=== PATIENT | female | born 1970 | race Caucasian/White ===

== ENCOUNTER 2018-06-04 14:08 | Inpatient (IN) | payer OTHER ==
[2018-06-04] VITALS (23 sets, daily range): BP systolic 110–180; BP diastolic 79–114
[~2018-06-04] VITALS: Ht 162.6 cm; Wt 45.1 kg
[~2018-06-04 14:08] MED LIST: ALBU8.5H6 INH; CITA10TA4 PO; DIAZEPAM10 MG PO; DIVA500T2 PO; LISI2.5T PO; MOME13HF2 IH; TRAZ-86 PO
[2018-06-04] MEDS ORDERED: IV NORMAL SALINE 1000ML BAG 1,000 ML IV SCH (14:26)
[2018-06-04] MEDS ORDERED: HEPARIN 25,000UTS/500ML PREMIX 0 ML IV ONE (14:27)
[2018-06-04] MEDS ORDERED: HEPARIN for IV BOLUS 10,000 UNIT/10 ML VIAL. ONE (14:27)
[2018-06-04] MEDS ORDERED: HEPARIN for IV BOLUS 10,000 UNIT/10 ML VIAL. IV ONE (14:30)
[2018-06-04] MEDS ORDERED: ASPIRIN CHEWABLE 81 MG TABLET. PO ONE (14:30)
--- NOTE | 2018-06-04 14:34 | PHYS DOC ---
Past Medical History Past Medical History: COPD, Hypertension, Lung Disease Additional Past Medical Histor: celiac disease Past Surgical History: Tonsillectomy, Other Additional Past Surgical Histo: eye surgery, knee surgery, hemmorhoidectomy Alcohol Use: None Drug Use: None Adult General Chief Complaint Chief Complaint: HYPERTENSION HPI HPI Patient is a 47 year old female who presents with finished up her azithromycin last Tuesday because she had looking pneumonia. Patient states that she hasn't been feeling good all week but last night she started having chest pain around 7 or 8 PM and began vomiting and feeling achy all over. She took some NyQuil this morning at 11 AM but through back up. She also tried taking some Zantac. She did try eating last night because she felt a little bit better before the chest pain started but she vomited that up. That was [place] food around dinnertime. Patient states she's not been keeping down fluids. Vital signs are 97.6, 100% on room air, 180/111, 104 heart rate, 13 respirations. Patient states she does smoke. Patient states she has a history of COPD and hypertension. Patient states that she's been taking her breathing treatments at home, Advair of which they are not giving her any relief. Patient states she also takes lisinopril for hypertension. She has no known drug allergies. Review of Systems Review of Systems Constitutional: Denies fever or chills [] Eyes: Denies change in visual acuity, redness, or eye pain [] HENT: Denies nasal congestion or sore throat [] Respiratory: Cough or shortness of breath [] Cardiovascular:Chest pain GI: Denies abdominal pain. Nausea, Vomiting. Denies bloody stools or diarrhea [ ] : Denies dysuria or hematuria [] Musculoskeletal: Denies back pain or joint pain [] Integument: Denies rash or skin lesions [] Neurologic: Denies headache, focal weakness or sensory changes [] Endocrine: Denies polyuria or polydipsia [] All other systems were reviewed and found to be within normal limits, except as documented in this note. Current Medications Current Medications Current Medications Medications (Trade) Dose Ordered Sig/Kwesi Start Time Stop Time Status Last Admin Dose Admin Acetaminophen (Tylenol) 650 mg PRN Q4HRS PRN 06/04/18 14:45 06/05/18 14:44 Aspirin (Children'S Aspirin) 324 mg 1X ONCE 06/04/18 14:30 06/04/18 14:35 DC 06/04/18 14:38 324 MG Fentanyl Citrate (Fentanyl 2ml Vial) 50 mcg PRN Q2HR PRN 06/04/18 16:00 06/05/18 15:59 Heparin Sodium (Porcine) (Heparin Sodium) 4,000 unit 1X ONCE 06/04/18 14:30 06/04/18 14:35 DC 06/04/18 14:43 4,000 UNIT Heparin Sodium/ Dextrose 0 ml @ As Directed STK-MED ONCE 06/04/18 14:27 06/04/18 14:28 DC Nitroglycerin (Nitrostat) 0.4 mg PRN Q5MIN PRN 06/04/18 14:45 06/05/18 14:44 Ondansetron HCl (Zofran) 4 mg PRN Q8HRS PRN 06/04/18 14:45 06/05/18 14:44 06/04/18 14:49 4 MG Sodium Chloride 1,000 ml @ 75 mls/hr [id number] 06/04/18 14:41 06/05/18 14:40 06/04/18 14:41 75 MLS/HR Allergies Allergies Allergies Coded Allergies Type Severity Reaction Last Updated Verified No Known Drug Allergies 02/15/14 No Physical Exam Physical Exam Constitutional: Well developed, well nourished, no acute distress, non-toxic appearance. [] HENT: Normocephalic, atraumatic, bilateral external ears normal, oropharynx moist, no oral exudates, nose normal. [] Eyes: PERRLA, EOMI, conjunctiva normal, no discharge. [] Neck: Normal range of motion, no tenderness, supple, no stridor. [] Cardiovascular:Heart rate regular rhythm, no murmur [] Lungs & Thorax: Bilateral breath sounds clear to auscultation in upper lobes, Lower lobes diminished with LLL having expiratory wheezes. [] Abdomen: Bowel sounds normal, soft, epigastric tenderness, no masses, no pulsatile masses. [] Skin: Warm, dry, no erythema, no rash. [] Back: No tenderness, no CVA tenderness. [] Extremities: No tenderness, no cyanosis, no clubbing, ROM intact, no edema. [] Neurologic: Alert and oriented X 3, normal motor function, normal sensory function, no focal deficits noted. [] Psychologic: Affect normal, judgement normal, mood normal. [] Current Patient Data Vital Signs Vital Signs Date Time Temp Pulse Resp B/P (MAP) Pulse Ox O2 Delivery O2 Flow Rate FiO2 06/04/18 14:41 100 22 99 06/04/18 14:41 Room Air 06/04/18 14:23 97.6 180/110 (133) 97.6 Lab Values Laboratory Tests Test 06/04/18 14:28 06/04/18 14:29 White Blood Count 22.6 x10^3/uL (4.0-11.0) H Red Blood Count 5.02 x10^6/uL (3.50-5.40) Hemoglobin 13.5 g/dL (12.0-15.5) Hematocrit 40.1 % (36.0-47.0) Mean Corpuscular Volume 80 fL (79-100) Mean Corpuscular Hemoglobin 27 pg (25-35) Mean Corpuscular Hemoglobin Concent 34 g/dL (31-37) Red Cell Distribution Width 17.8 % (11.5-14.5) H Platelet Count 463 x10^3/uL (140-400) H Neutrophils (%) (Auto) 91 % (31-73) H Lymphocytes (%) (Auto) 5 % (24-48) L Monocytes (%) (Auto) 4 % (0-9) Eosinophils (%) (Auto) 0 % (0-3) Basophils (%) (Auto) 0 % (0-3) Neutrophils # (Auto) 20.6 x10^3uL (1.8-7.7) H Lymphocytes # (Auto) 1.2 x10^3/uL (1.0-4.8) Monocytes # (Auto) 0.8 x10^3/uL (0.0-1.1) Eosinophils # (Auto) 0.0 x10^3/uL (0.0-0.7) Basophils # (Auto) 0.0 x10^3/uL (0.0-0.2) Platelet Estimate Pending Prothrombin Time 13.3 SEC (11.7-14.0) Prothrombin Time INR 1.1 (0.8-1.1) Sodium Level 139 mmol/L (136-145) Potassium Level 4.5 mmol/L (3.5-5.1) Chloride Level 100 mmol/L (98-107) Carbon Dioxide Level 25 mmol/L (21-32) Anion Gap 14 (6-14) 16 mmol/L (6-14) H Blood Urea Nitrogen 12 mg/dL (7-20) Creatinine 1.0 mg/dL (0.6-1.0) Estimated GFR (Cockcroft-Gault) 58.9 BUN/Creatinine Ratio 12 (6-20) Glucose Level 168 mg/dL (70-99) H 171 mg/dL (70-99) H Calcium Level 9.5 mg/dL (8.5-10.1) Total Bilirubin 0.4 mg/dL (0.2-1.0) Aspartate Amino Transferase (AST) 277 U/L (15-37) H Alanine Aminotransferase (ALT) 54 U/L (14-59) Alkaline Phosphatase 89 U/L (46-116) Total Protein 7.3 g/dL (6.4-8.2) Albumin 3.8 g/dL (3.4-5.0) Albumin/Globulin Ratio 1.1 (1.0-1.7) POC Hemoglobin 15.0 g/dL (12-15) POC Hematocrit 44 % (36-40) H POC Sodium 137 mmol/L (135-145) POC Potassium 4.7 mmol/L (3.5-5.0) POC Chloride 101 mmol/L (98-110) POC Total CO2 26 mmol/L (23-32) POC Blood Urea Nitrogen 14 mg/dL (8-26) POC Creatinine 0.7 mg/dL (0.5-1.4) POC Ionized Calcium (Dariusz) 1.01 mmol/L (1.13-1.32) L POC Troponin I 9.73 ng/ml (<0.08) Laboratory Tests 06/04/18 14:28 Laboratory Tests 06/04/18 14:28 06/04/18 14:29 EKG EKG Inferior STEMI[] Interpretation Time: 1421 Radiology/Procedures Radiology/Procedures [] Impressions: [facility] [address] [place] [address] IMAGING REPORT Signed PATIENT: ELLIOTT BERNARD ACCOUNT: [id number] : 1970 LOCATION: ER AGE: 47 SEX: F EXAM STATUS: PRE ER ORD. PHYSICIAN: IZABELLA SNEED APRN REASON: STEMI PROCEDURE: PORTABLE CHEST 1V Examination: PORTABLE CHEST 1V History: STEMI. HX OF COPD, ASTHMA
Comparison/Correlation: 04/25/2015 two-view chest x-ray exam Findings: Portable frontal view of the chest was obtained. Heart size is normal. Subtle pulmonary interstitial thickening which may represent minimal interstitial edema noted. No pneumothorax. No infiltrate or pleural effusion. Borderline pulmonary hyperinflation is questioned. Bony structures are unremarkable. Impression: Subtle interstitial edema of the lung rainey. This finding is new in the interval. Electronically signed by: Sonido Charles MD (06/04/2018 2:43 PM) [facility] DICTATED and SIGNED BY: SONIDO CHARLES MD DATE: 06/04/18 1441 Course & Med Decision Making Course & Med Decision Making Patient is a 47 year old female who presents with finished up her azithromycin last Tuesday because she had looking pneumonia. Patient states that she hasn't been feeling good all week but last night she started having chest pain around 7 or 8 PM and began vomiting and feeling achy all over. She took some NyQuil this morning at 11 AM but through back up. She also tried taking some Zantac. She did try eating last night because she felt a little bit better before the chest pain started but she vomited that up. That was [place] food around dinnertime. Patient states she's not been keeping down fluids. Vital signs are 97.6, 100% on room air, 180/111, 104 heart rate, 13 respirations. Patient states she does smoke. Patient states she has a history of COPD and hypertension. Patient states that she's been taking her breathing treatments at home, Advair of which they are not giving her any relief. Patient states she also takes lisinopril for hypertension. She has no known drug allergies. Patient states all night she began getting hot and cold chills. Patient's EKG shows inferior STEMI. Dr. James is up to see the patient and the Cd Mixer has been notified. Lungs are clear in upper lobes but diminished in lower lobes with left lower lobe having wheezes. Abdomen is soft and tender at epigastric area. Patient denies any urinary symptoms. Patient's skin is pale but warm and dry. Patient is afebrile. Patient is alert and oriented and speaks in full sentences. Patient states that she has a heavy pressure on her mid chest she rates a 9 out of 10 and without radiation. She has no extremity swelling. Pulses are present in all extremities. Rate is tachycardia. Chest x- ray shows Subtle interstitial edema of the lung rainey. This finding is new in the interval. Patient is given 4000 units of heparin, 324 of aspirin, fentanyl 50 mcgs, and Zofran 4 mg IV. I-STAT troponin is 9.7. 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 Dragon Disclaimer Dragon Disclaimer This electronic medical record was generated, in whole or in part, using a voice recognition dictation system. Departure Departure Impression: Primary Impression: Acute myocardial infarction Disposition: ADMITTED INPATIENT Admitting Physician: Belkys Duff Condition: STABLE Referrals: SHREE VARELA MD (PCP) Problem Qualifiers Primary Impression: Acute myocardial infarction Myocardial infarction type: unspecified Involved coronary artery: unspecified coronary artery Qualified Codes: I21.9 - Acute myocardial infarction, unspecified IZABELLA SNEED [employer] Jun 04, 2018 14:33
[2018-06-04 14:36] LABS: CREATININE ISTAT 0.7 mg/dL (0.5-1.4); ION CA ISTAT 1.01 mmol/L (1.13-1.32); POTASSIUM ISTAT 4.7 mmol/L (3.5-5.0)
[2018-06-04 14:39] LABS: BASO % 0 % (0-3); EOS % 0 % (0-3); HEMATOCRIT 40.1 % (36.0-47.0); HEMOGLOBIN 13.5 g/dL (12.0-15.5); LYMPH # 1.2 x10^3/uL (1.0-4.8); LYMPH % 5 % (24-48); MEAN CORPUSCULAR HEMOGLOBIN 27 pg (25-35); MEAN CORPUSCULAR HGB CONC 34 g/dL (31-37); MEAN CORPUSCULAR VOLUME 80 fL (79-100); MONO # 0.8 x10^3/uL (0.0-1.1); MONO % 4 % (0-9); NEUT # 20.6 x10^3uL (1.8-7.7); NEUT % 91 % (31-73); PLATELET COUNT 463 x10^3/uL (140-400); RED BLOOD COUNT 5.02 x10^6/uL (3.50-5.40); RED CELL DISTRIBUTION WIDTH 17.8 % (11.5-14.5); WHITE BLOOD COUNT 22.6 x10^3/uL (4.0-11.0)
[2018-06-04] MEDS: IV NORMAL SALINE 1000ML BAG 1,000 ML IV SCH ×2 (14:41→16:05)
[2018-06-04] MEDS ORDERED: ONDANSETRON PF 4 MG/2 ML VIAL. IV PRN (14:45)
[2018-06-04] MEDS ORDERED: fentaNYL PF VIAL 100 MCG/2 ML VIAL IV ONE ×2 (14:45→15:45)
[2018-06-04] MEDS ORDERED: NITROGLYCERIN SUBLINGUAL 0.4 MG BOTTLE OF 25. SL PRN ×2 (14:45→16:15)
[2018-06-04] MEDS ORDERED: ONDANSETRON PF 4 MG/2 ML VIAL. IV ONE (14:45)
[2018-06-04] MEDS ORDERED: ACETAMINOPHEN 325 MG TABLET. PO PRN ×2 (14:45→16:15)
[2018-06-04 14:46] LABS: CALCIUM 9.5 mg/dL (8.5-10.1); GFR 58.9; POTASSIUM 4.5 mmol/L (3.5-5.1)
--- NOTE | 2018-06-04 14:46 | RAD ---
Examination: PORTABLE CHEST 1V History: STEMI. HX OF COPD, ASTHMA
Comparison/Correlation: 04/25/2015 two-view chest x-ray exam Findings: Portable frontal view of the chest was obtained. Heart size is normal. Subtle pulmonary interstitial thickening which may represent minimal interstitial edema noted. No pneumothorax. No infiltrate or pleural effusion. Borderline pulmonary hyperinflation is questioned. Bony structures are unremarkable. Impression: Subtle interstitial edema of the lung rainey. This finding is new in the interval. Electronically signed by: Sonido Galan MD (06/04/2018 2:43 PM) [facility]
[2018-06-04 14:49] LABS: PROTHROMBIN TIME PATIENT 13.3 SEC (11.7-14.0)
[2018-06-04 14:52] LABS: ALBUMIN 3.8 g/dL (3.4-5.0); ALBUMIN/GLOBULIN RATIO 1.1 (1.0-1.7); TOTAL BILIRUBIN 0.4 mg/dL (0.2-1.0); TOTAL PROTEIN 7.3 g/dL (6.4-8.2)
[2018-06-04] MEDS ORDERED: IODIXANOL 320 MG/ML 100 ML VIAL. ONE ×2 (14:58→15:21)
[2018-06-04] MEDS ORDERED: LIDOCAINE 1% PF 30 ML VIAL. ONE (14:58)
[2018-06-04] MEDS ORDERED: MIDAZOLAM HCL/PF 2 MG/2 ML VIAL. ONE ×2 (15:02→15:15)
[2018-06-04] MEDS ORDERED: fentaNYL PF VIAL 100 MCG/2 ML VIAL ONE ×2 (15:02→15:31)
--- NOTE | 2018-06-04 15:05 | EKG ---
[facility] [address] [place] [address] Test Date: 2018-06-04 Test Time: 14:21:39 Pat Name: ELLIOTT BERNARD Department: Room: Gender: F Material Specialist: : 1970 Requested By: IZABELLA SNEED Order Number: [id number] Reading MD: Kaushal Solis MD Measurements Intervals [place] Rate: 98 P: 86 AK: 146 QRS: 1 QRSD: 72 T: 89 QT: 366 QTc: 469 Interpretive Statements SINUS RHYTHM INFEROLATERAL STEMI Electronically Signed On 06-05-2018 11:46:19 CDT by Kaushal Solis MD
[2018-06-04 15:09] LABS: CHOLESTEROL/HDL RATIO 3.1
--- NOTE | 2018-06-04 15:10 | PDOC1 ---
History and Physical Date of Admission Date of Admission DATE: 06/04/18 TIME: 15:05 Identification/Chief Complaint Chief Complaint Chest pain, SOA, sweaty Source Source: Caregiver, Chart review, Patient History of Present Illness History of Present Illness 47-year-old female who continues to smoke, BMI 18, started to have left-sided chest pain, diaphoresis, SOA last night. She thought it was just her walking pneumonia from which she is recently recovering. But chest pain persisted upon waking up this morning. SHe describes it as tight squeezing, left sided associated with diaphoresis. Hence went to the emergency room and found to have a STEMI inferior wall hence now being planned for cardiac catheterization. She is vomiting, vital signs, blood pressure on the high side, WBC elevated at 22 but then again recently on prednisone for walking pneumonia. Platelets also mildly elevated 463. She has a bucket at bedside, emesis. She swears she will not smoke again. Troponin peaks at 9. Now has been nothing by mouth for urgent LHC, She takes inhalers, lisinopril, and other meds-which I have reconciled Smoking cessation 1 and 1 done today and she is very interested about it Past Medical History Cardiovascular: HTN Pulmonary: Asthma, Bronchitis, COPD Past Surgical History Past Surgical History: No pertinent history Family History Family History: Heart Disease, High Cholestrol, Hypertension Social History Smoke: 1 pack per day ALCOHOL: occassional Drugs: None Current Problem List Problem List Problems Medical Problems: (1) Acute myocardial infarction Status: Acute Current Medications Current Medications Current Medications Heparin Sodium (Porcine) (Heparin Sodium) 10,000 unit STK-MED ONCE .ROUTE ; Start 06/04/18 at 14:27; Stop 06/04/18 at 14:28; Status DC Heparin Sodium/ Dextrose 0 ml @ As Directed STK-MED ONCE IV ; Start 06/04/18 at 14:27; Stop 06/04/18 at 14:28; Status DC Sodium Chloride 1,000 ml @ 1,000 mls/hr Q1H IV Last administered on at 14:34; Start 06/04/18 at 14:26; Stop 06/04/18 at 15:25 Aspirin (Children'S Aspirin) 324 mg 1X ONCE PO Last administered on at 14:38; Start 06/04/18 at 14:30; Stop 06/04/18 at 14:35; Status DC Heparin Sodium (Porcine) (Heparin Sodium) 4,000 unit 1X ONCE IV Last administered on 06/04/18at 14:43; Start 06/04/18 at 14:30; Stop 06/04/18 at 14 :35; Status DC Fentanyl Citrate (Fentanyl 2ml Vial) 50 mcg 1X ONCE IV Last administered on at 14:41; Start 06/04/18 at 14:45; Stop 06/04/18 at 14:46; Status DC Ondansetron HCl (Zofran) 4 mg 1X ONCE IV Last administered on 06/04/18at 14:45 ; Start 06/04/18 at 14:45; Stop 06/04/18 at 14:46; Status DC Ondansetron HCl (Zofran) 4 mg PRN Q8HRS PRN IV NAUSEA/VOMITING Last administered on 06/04/18at 14:49; Start 06/04/18 at 14:45; Stop 06/05/18 at 14 :44 Fentanyl Citrate (Fentanyl 2ml Vial) 50 mcg PRN Q2HR PRN IV PAIN; Start at 16:00; Stop 06/05/18 at 15:59 Sodium Chloride 1,000 ml @ 75 mls/hr [id number] IV Last administered on at 14:41; Start 06/04/18 at 14:41; Stop 06/05/18 at 14:40 Acetaminophen (Tylenol) 650 mg PRN Q4HRS PRN PO FEVER; Start 06/04/18 at 14:45 ; Stop 06/05/18 at 14:44 Nitroglycerin (Nitrostat) 0.4 mg PRN Q5MIN PRN SL CHEST PAIN; Start 06/04/18 at 14:45; Stop 06/05/18 at 14:44 Iodixanol (Visipaque 320) 100 ml STK-MED ONCE .ROUTE ; Start 06/04/18 at 14:58 ; Stop 06/04/18 at 14:59; Status DC Lidocaine HCl (Xylocaine 1% Pf 30ml Vial) 30 ml STK-MED ONCE .ROUTE ; Start at 14:58; Stop 06/04/18 at 14:59; Status DC Heparin Sodium/ Sodium Chloride 1,000 ml @ As Directed STK-MED ONCE .ROUTE ; Start 06/04/18 at 14:58; Stop 06/04/18 at 14:59; Status DC Fentanyl Citrate (Fentanyl 2ml Vial) 100 mcg STK-MED ONCE .ROUTE ; Start at 15:02; Stop 06/04/18 at 15:03; Status DC Midazolam HCl (Versed) 2 mg STK-MED ONCE .ROUTE ; Start 06/04/18 at 15:02; Stop 06/04/18 at 15:03; Status DC Active Scripts Active Reported Albuterol Sulfate Hfa Inhaler (Albuterol Sulfate) 8.5 Gm Hfa.aer.ad 2 Puff INH Q4HRS PRN Trazodone Hcl 100 Mg Tablet 100 Mg PO HS PRN Dulera 100 Mcg/5 Mcg Inhaler (Mometasone/Formoterol) 13 Gm Hfa.aer.ad 2 Puff IH Lisinopril 2.5 Mg Tablet 2.5 Mg PO DAILY Depakote (Divalproex Sodium) 500 Mg Tablet.dr 750 Mg PO DAILY Diazepam 10 Mg Tablet 10 Mg PO DAILY PRN Citalopram Hbr (Citalopram Hydrobromide) 10 Mg Tablet 10 Mg PO DAILY Allergies Allergies: Coded Allergies: No Known Drug Allergies (Unverified , 02/15/14) ROS Review of System Limited, very sick, bucket at bedside, but is nauseated, pos for chest pain - mostly per hPI Physical Exam General: No acute distress, Other (bucket at bedside, warm and perspiring to touch) HEENT: Atraumatic, PERRLA, EOMI Lungs: Clear to auscultation, Normal air movement Heart: S1S2, RRR, no thrills, no rubs, no gallops, no murmurs Cardiovascular: S1, S2 Breasts: Normal, Rt breast nml w/o mass, Lt breast nml w/o mass, Nipples normal Abdomen: Normal bowel sounds, Soft, No tenderness, No hepatosplenomegaly, No masses Rectal Exam: not examined PELVIC: Nml ext genitalia Extremities: No clubbing, No cyanosis, No edema, Normal pulses, No tenderness/ swelling Skin: No rashes, No breakdown, No significant lesion Neuro: Normal gait, Normal speech, Strength at 5/5 X4 ext, Normal tone, Sensation intact, Cranial nerves 3-12 NL, Reflexes 2+ Psych/Mental Status: Mental status NL, Mood NL Vitals Vitals Vital Signs Date Time Temp Pulse Resp B/P (MAP) Pulse Ox O2 Delivery O2 Flow Rate FiO2 06/04/18 14:41 100 22 99 06/04/18 14:41 Room Air 06/04/18 14:23 97.6 180/110 (133) 97.6 Labs Labs Laboratory Tests Test 06/04/18 14:28 06/04/18 14:29 White Blood Count 22.6 x10^3/uL (4.0-11.0) Red Blood Count 5.02 x10^6/uL (3.50-5.40) Hemoglobin 13.5 g/dL (12.0-15.5) Hematocrit 40.1 % (36.0-47.0) Mean Corpuscular Volume 80 fL (79-100) Mean Corpuscular Hemoglobin 27 pg (25-35) Mean Corpuscular Hemoglobin Concent 34 g/dL (31-37) Red Cell Distribution Width 17.8 % (11.5-14.5) Platelet Count 463 x10^3/uL (140-400) Neutrophils (%) (Auto) 91 % (31-73) Lymphocytes (%) (Auto) 5 % (24-48) Monocytes (%) (Auto) 4 % (0-9) Eosinophils (%) (Auto) 0 % (0-3) Basophils (%) (Auto) 0 % (0-3) Neutrophils # (Auto) 20.6 x10^3uL (1.8-7.7) Lymphocytes # (Auto) 1.2 x10^3/uL (1.0-4.8) Monocytes # (Auto) 0.8 x10^3/uL (0.0-1.1) Eosinophils # (Auto) 0.0 x10^3/uL (0.0-0.7) Basophils # (Auto) 0.0 x10^3/uL (0.0-0.2) Prothrombin Time 13.3 SEC (11.7-14.0) Prothromb Time International Ratio 1.1 (0.8-1.1) Sodium Level 139 mmol/L (136-145) Potassium Level 4.5 mmol/L (3.5-5.1) Chloride Level 100 mmol/L (98-107) Carbon Dioxide Level 25 mmol/L (21-32) Anion Gap 14 (6-14) 16 mmol/L (6-14) Blood Urea Nitrogen 12 mg/dL (7-20) Creatinine 1.0 mg/dL (0.6-1.0) Estimated GFR (Cockcroft-Gault) 58.9 BUN/Creatinine Ratio 12 (6-20) Glucose Level 168 mg/dL (70-99) 171 mg/dL (70-99) Calcium Level 9.5 mg/dL (8.5-10.1) Total Bilirubin 0.4 mg/dL (0.2-1.0) Aspartate Amino Transf (AST/SGOT) 277 U/L (15-37) Alanine Aminotransferase (ALT/SGPT) 54 U/L (14-59) Alkaline Phosphatase 89 U/L (46-116) Total Protein 7.3 g/dL (6.4-8.2) Albumin 3.8 g/dL (3.4-5.0) Albumin/Globulin Ratio 1.1 (1.0-1.7) Bedside Hemoglobin 15.0 g/dL (12-15) Bedside Hematocrit 44 % (36-40) Bedside Sodium 137 mmol/L (135-145) Bedside Potassium 4.7 mmol/L (3.5-5.0) Bedside Chloride 101 mmol/L (98-110) Bedside Total CO2 26 mmol/L (23-32) Bedside Blood Urea Nitrogen 14 mg/dL (8-26) Bedside Creatinine 0.7 mg/dL (0.5-1.4) Bedside Ionized Calcium (Dariusz) 1.01 mmol/L (1.13-1.32) Bedside Troponin I 9.73 ng/ml (<0.08) Laboratory Tests Test 06/04/18 14:28 06/04/18 14:29 White Blood Count 22.6 x10^3/uL (4.0-11.0) Red Blood Count 5.02 x10^6/uL (3.50-5.40) Hemoglobin 13.5 g/dL (12.0-15.5) Hematocrit 40.1 % (36.0-47.0) Mean Corpuscular Volume 80 fL (79-100) Mean Corpuscular Hemoglobin 27 pg (25-35) Mean Corpuscular Hemoglobin Concent 34 g/dL (31-37) Red Cell Distribution Width 17.8 % (11.5-14.5) Platelet Count 463 x10^3/uL (140-400) Neutrophils (%) (Auto) 91 % (31-73) Lymphocytes (%) (Auto) 5 % (24-48) Monocytes (%) (Auto) 4 % (0-9) Eosinophils (%) (Auto) 0 % (0-3) Basophils (%) (Auto) 0 % (0-3) Neutrophils # (Auto) 20.6 x10^3uL (1.8-7.7) Lymphocytes # (Auto) 1.2 x10^3/uL (1.0-4.8) Monocytes # (Auto) 0.8 x10^3/uL (0.0-1.1) Eosinophils # (Auto) 0.0 x10^3/uL (0.0-0.7) Basophils # (Auto) 0.0 x10^3/uL (0.0-0.2) Prothrombin Time 13.3 SEC (11.7-14.0) Prothromb Time International Ratio 1.1 (0.8-1.1) Sodium Level 139 mmol/L (136-145) Potassium Level 4.5 mmol/L (3.5-5.1) Chloride Level 100 mmol/L (98-107) Carbon Dioxide Level 25 mmol/L (21-32) Anion Gap 14 (6-14) 16 mmol/L (6-14) Blood Urea Nitrogen 12 mg/dL (7-20) Creatinine 1.0 mg/dL (0.6-1.0) Estimated GFR (Cockcroft-Gault) 58.9 BUN/Creatinine Ratio 12 (6-20) Glucose Level 168 mg/dL (70-99) 171 mg/dL (70-99) Calcium Level 9.5 mg/dL (8.5-10.1) Total Bilirubin 0.4 mg/dL (0.2-1.0) Aspartate Amino Transf (AST/SGOT) 277 U/L (15-37) Alanine Aminotransferase (ALT/SGPT) 54 U/L (14-59) Alkaline Phosphatase 89 U/L (46-116) Total Protein 7.3 g/dL (6.4-8.2) Albumin 3.8 g/dL (3.4-5.0) Albumin/Globulin Ratio 1.1 (1.0-1.7) Bedside Hemoglobin 15.0 g/dL (12-15) Bedside Hematocrit 44 % (36-40) Bedside Sodium 137 mmol/L (135-145) Bedside Potassium 4.7 mmol/L (3.5-5.0) Bedside Chloride 101 mmol/L (98-110) Bedside Total CO2 26 mmol/L (23-32) Bedside Blood Urea Nitrogen 14 mg/dL (8-26) Bedside Creatinine 0.7 mg/dL (0.5-1.4) Bedside Ionized Calcium (Dariusz) 1.01 mmol/L (1.13-1.32) Bedside Troponin I 9.73 ng/ml (<0.08) VTE Prophylaxis Ordered VTE Prophylaxis Devices: Yes VTE Pharmacological Prophylaxi: Yes Assessment/Plan Assessment/Plan STEMI inferior wall Leukocytosis in the background of recent prednisone for URI sxs/walking PNA Recent acute bronchitis/walking PNA Reactive thrombocytosis Smoker of pack a day Hypertension accelerated POA secondary to STEMI PLAN: Urgent [facility] Heparin drip Nicotine patch and gum Control BP Home meds I have reconciled Further recommendations/antiplatelets care of cardiology Seen at JUSTINE SANCHES MD Jun 04, 2018 15:10
[2018-06-04 15:15] LABS: PREG TEST PT QUAL NEGATIVE (NEG)
[2018-06-04] MEDS ORDERED: diphenhydrAMINE HCL 25 MG CAPSULE PO PRN (15:15)
[2018-06-04] MEDS ORDERED: ALBUTEROL SULFATE 8GM INHALER. INH PRN (15:15)
[2018-06-04] MEDS ORDERED: NICOTINE 21MG PATCH. TD PRN (15:15)
[2018-06-04] MEDS ORDERED: NICOTINE POLACRILEX 2MG GUM PACKAGE of 12. BC PRN (15:15)
[2018-06-04] MEDS ORDERED: traZODone 100 MG TABLET. PO PRN (15:15)
[2018-06-04] MEDS ORDERED: BIVALIRUDIN 250 MG VIAL. IV ONE ×2 (15:18→15:45)
[2018-06-04] MEDS ORDERED: LIDOCAINE 1% PF 30 ML VIAL. INJ ONE (15:45)
[2018-06-04] MEDS ORDERED: MIDAZOLAM HCL/PF 2 MG/2 ML VIAL. IV ONE (15:45)
[2018-06-04] MEDS ORDERED: NITROGLYCERIN 200 MCG/2 ML SYRINGE FOR CATH/VASC LAB. IART ONE (15:45)
[2018-06-04] MEDS ORDERED: ALBUTEROL SULFATE 2.5 MG/3 ML NEBU. NEB PRN (15:45)
[2018-06-04] MEDS ORDERED: CONTRAST GIVEN. MC PRN (15:45)
[2018-06-04] MEDS ORDERED: IODIXANOL 320 MG/ML 100 ML VIAL. IART ONE (15:45)
[2018-06-04 16:00] LABS: % ATYL 1 % (0-0); % BANDS 9 % (0-9); % LYMPHS 3 % (24-48); % MONOS 3 % (0-10); % SEGS 84 % (35-66); ANISOCYTOSIS SLIGHT; PLT ESTIMATE INCREASED (ADEQUATE)
[2018-06-04] MEDS ORDERED: CLOPIDOGREL BISULFATE 75 MG TABLET PO ONE (16:00)
[2018-06-04] MEDS ORDERED: fentaNYL PF VIAL 100 MCG/2 ML VIAL IV PRN (16:00)
[2018-06-04] MEDS ORDERED: LISINOPRIL 5 MG TABLET. PO SCH (16:00)
--- NOTE | 2018-06-04 16:14 | PDOC2 ---
CONSULT Date of Consult Date of Consult DATE: 06/04/18 TIME: 16:13 Reason for Consult Reason for Consult: Acute myocardial infarction Referring Physician Referring Physician: Dr. Knapp Identification/Chief Complaint Chief Complaint Nausea, vomiting, chest pain Source Source: Chart review, Patient History of Present Illness Reason for Visit: 47-year-old female without any previous cardiac history apparently started having nausea, vomiting, retrosternal chest pressure associated with mild shortness of breath last night. Since her symptoms were not getting better, she presented to the ED where an EKG showed inferolateral ST elevations consistent with acute myocardial infarction. She apparently was recently treated for pneumonia. She denied any orthopnea/PND, palpitations or syncope. She stated that she is under tremendous amount of stress due to the prospect of losing her house. She also has history of anxiety/panic attack. Past Medical History Cardiovascular: HTN Pulmonary: Asthma, Bronchitis, COPD Past Surgical History Past Surgical History: No pertinent history Family History Family History: Heart Disease, High Cholestrol, Hypertension Social History 1 pack per day ALCOHOL: occassional Drugs: None Current Problem List Problem List Problems Medical Problems: (1) Acute myocardial infarction Status: Acute Current Medications Current Medications Current Medications Heparin Sodium (Porcine) (Heparin Sodium) 10,000 unit STK-MED ONCE .ROUTE ; Start 06/04/18 at 14:27; Stop 06/04/18 at 14:28; Status DC Heparin Sodium/ Dextrose 0 ml @ As Directed STK-MED ONCE IV ; Start 06/04/18 at 14:27; Stop 06/04/18 at 14:28; Status DC Sodium Chloride 1,000 ml @ 1,000 mls/hr Q1H IV Last administered on at 14:34; Start 06/04/18 at 14:26; Stop 06/04/18 at 15:25; Status DC Aspirin (Children'S Aspirin) 324 mg 1X ONCE PO Last administered on at 14:38; Start 06/04/18 at 14:30; Stop 06/04/18 at 14:35; Status DC Heparin Sodium (Porcine) (Heparin Sodium) 4,000 unit 1X ONCE IV Last administered on 06/04/18at 14:43; Start 06/04/18 at 14:30; Stop 06/04/18 at 14 :35; Status DC Fentanyl Citrate (Fentanyl 2ml Vial) 50 mcg 1X ONCE IV Last administered on at 14:41; Start 06/04/18 at 14:45; Stop 06/04/18 at 14:46; Status DC Ondansetron HCl (Zofran) 4 mg 1X ONCE IV Last administered on 06/04/18at 14:45 ; Start 06/04/18 at 14:45; Stop 06/04/18 at 14:46; Status DC Ondansetron HCl (Zofran) 4 mg PRN Q8HRS PRN IV NAUSEA/VOMITING Last administered on 06/04/18at 14:49; Start 06/04/18 at 14:45; Stop 06/04/18 at 15 :05; Status DC Fentanyl Citrate (Fentanyl 2ml Vial) 50 mcg PRN Q2HR PRN IV PAIN; Start at 16:00; Stop 06/05/18 at 15:59 Sodium Chloride 1,000 ml @ 75 mls/hr [id number] IV Last administered on at 16:05; Start 06/04/18 at 14:41; Stop 06/05/18 at 14:40 Acetaminophen (Tylenol) 650 mg PRN Q4HRS PRN PO FEVER; Start 06/04/18 at 14:45 ; Stop 06/05/18 at 14:44 Nitroglycerin (Nitrostat) 0.4 mg PRN Q5MIN PRN SL CHEST PAIN; Start 06/04/18 at 14:45; Stop 06/05/18 at 14:44 Iodixanol (Visipaque 320) 100 ml STK-MED ONCE .ROUTE ; Start 06/04/18 at 14:58 ; Stop 06/04/18 at 14:59; Status DC Lidocaine HCl (Xylocaine 1% Pf 30ml Vial) 30 ml STK-MED ONCE .ROUTE ; Start at 14:58; Stop 06/04/18 at 14:59; Status DC Heparin Sodium/ Sodium Chloride 1,000 ml @ As Directed STK-MED ONCE .ROUTE ; Start 06/04/18 at 14:58; Stop 06/04/18 at 14:59; Status DC Fentanyl Citrate (Fentanyl 2ml Vial) 100 mcg STK-MED ONCE .ROUTE ; Start at 15:02; Stop 06/04/18 at 15:03; Status DC Midazolam HCl (Versed) 2 mg STK-MED ONCE .ROUTE ; Start 06/04/18 at 15:02; Stop 06/04/18 at 15:03; Status DC Ondansetron HCl (Zofran) 4 mg PRN Q6HRS PRN IV NAUSEA/VOMITING; Start at 15:15 Nicotine (Nicoderm Cq 21mg) 1 patch PRN DAILY PRN TD SMOKING CESSATION; Start 06/04/18 at 15:15 Nicotine Polacrilex (Nicorette Gum) 1 each PRN Q1HR PRN BC SMOKING CESSATION; Start 06/04/18 at 15:15 Oxycodone/ Acetaminophen (Percocet 5/325) 1 tab PRN Q4HRS PRN PO PAIN; Start 06/04/18 at 15:15 Diphenhydramine HCl (Benadryl) 25 mg PRN QHS PRN PO INSOMNIA; Start 06/04/18 at 15:15 Albuterol Sulfate (Ventolin Hfa) 2 puff Q4HRS PRN INH SHORTNESS OF BREATH; Start 06/04/18 at 15:15; Stop 06/04/18 at 15:36; Status DC Citalopram Hydrobromide (CeleXA) 10 mg DAILY PO ; Start 06/05/18 at 09:00 Trazodone HCl (Desyrel) 100 mg PRN QHS PRN PO INSOMNIA; Start 06/04/18 at 15: 15 Non-Formulary Medication (Diazepam ) 10 mg DAILY PRN PO ANXIETY / AGITATION; Start 06/04/18 at 15:15; Status UNV Non-Formulary Medication (Divalproex Sodium (Depakote)) 750 mg DAILY PO ; Start 06/05/18 at 09:00; Status UNV Lisinopril (Prinivil) 2.5 mg DAILY PO ; Start 06/04/18 at 16:00 Midazolam HCl (Versed) 2 mg STK-MED ONCE .ROUTE ; Start 06/04/18 at 15:15; Stop 06/04/18 at 15:16; Status DC Bivalirudin (Angiomax) 250 mg STK-MED ONCE IV ; Start 06/04/18 at 15:18; Stop 06/04/18 at 15:19; Status DC Iodixanol (Visipaque 320) 100 ml STK-MED ONCE .ROUTE ; Start 06/04/18 at 15:21 ; Stop 06/04/18 at 15:22; Status DC Fentanyl Citrate (Fentanyl 2ml Vial) 100 mcg STK-MED ONCE .ROUTE ; Start at 15:31; Stop 06/04/18 at 15:32; Status DC Albuterol Sulfate (Ventolin Neb Soln) 2.5 mg PRN Q4HRS PRN NEB SHORTNESS OF BREATH; Start 06/04/18 at 15:45 Nitroglycerin (Nitroglycerin) 200 mcg 1X ONCE IART Last administered on at 15:45; Start 06/04/18 at 15:45; Stop 06/04/18 at 15:46; Status DC Heparin Sodium/ Sodium Chloride (HEPARIN for ARTERIAL LINE FLUSH) 1,000 unit 1X ONCE IART Last administered on 06/04/18at 15:41; Start 06/04/18 at 15:45; Stop 06/04/18 at 15:46; Status DC Heparin Sodium/ Sodium Chloride (HEPARIN for ARTERIAL LINE FLUSH) 1,000 unit 1X ONCE IART Last administered on 06/04/18at 15:41; Start 06/04/18 at 15:45; Stop 06/04/18 at 15:46; Status DC Midazolam HCl (Versed) 2 mg 1X ONCE IV Last administered on 06/04/18at 15:45; Start 06/04/18 at 15:45; Stop 06/04/18 at 15:46; Status DC Fentanyl Citrate (Fentanyl 2ml Vial) 100 mcg 1X ONCE IV Last administered on 06/04/18at 15:45; Start 06/04/18 at 15:45; Stop 06/04/18 at 15:46; Status DC Iodixanol (Visipaque 320) 100 ml 1X ONCE IART Last administered on 06/04/18at 15:45; Start 06/04/18 at 15:45; Stop 06/04/18 at 15:46; Status DC Bivalirudin (Angiomax) 250 mg 1X ONCE IV Last administered on 06/04/18at 15:41 ; Start 06/04/18 at 15:45; Stop 06/04/18 at 15:46; Status DC Lidocaine HCl (Xylocaine 1% Pf 30ml Vial) 30 ml 1X ONCE INJ Last administered on 06/04/18at 15:45; Start 06/04/18 at 15:45; Stop 06/04/18 at 15:46; Status DC Info (CONTRAST GIVEN -- Rx MONITORING) 1 each PRN DAILY PRN MC SEE COMMENTS; Start 06/04/18 at 15:45; Stop 06/06/18 at 15:44 Clopidogrel Bisulfate (Plavix) 600 mg 1X ONCE PO Last administered on at 16:00; Start 06/04/18 at 16:00; Stop 06/04/18 at 16:01; Status DC Active Scripts Active Reported Albuterol Sulfate Hfa Inhaler (Albuterol Sulfate) 8.5 Gm Hfa.aer.ad 2 Puff INH Q4HRS PRN Trazodone Hcl 100 Mg Tablet 100 Mg PO HS PRN Dulera 100 Mcg/5 Mcg Inhaler (Mometasone/Formoterol) 13 Gm Hfa.aer.ad 2 Puff IH Lisinopril 2.5 Mg Tablet 2.5 Mg PO DAILY Depakote (Divalproex Sodium) 500 Mg Tablet.dr 750 Mg PO DAILY Diazepam 10 Mg Tablet 10 Mg PO DAILY PRN Citalopram Hbr (Citalopram Hydrobromide) 10 Mg Tablet 10 Mg PO DAILY Allergies Allergies: Coded Allergies: No Known Drug Allergies (Unverified , 02/15/14) ROS PSYCHOLOGICAL ROS: No: Hallucinations Eyes: No Loss of vision Respiratory: YES: Shortness of breath; No: Hemoptysis Cardiovascular: yes Chest Pain Gastrointestinal: Yes Nausea, Yes Vomiting Neurological: Yes Seizures Skin: Yes Rash Physical Exam General: Alert, mild distress HEENT: Atraumatic, PERRLA Lungs: Clear to auscultation Heart: Regular rate Abdomen: Soft, No tenderness Extremities: No edema Psych/Mental Status: Mood NL Vitals VITALS Vital Signs Date Time Temp Pulse Resp B/P (MAP) Pulse Ox O2 Delivery O2 Flow Rate FiO2 06/04/18 15:45 18 06/04/18 14:41 100 99 06/04/18 14:41 Room Air 06/04/18 14:23 97.6 180/110 (133) 97.6 Labs Labs Laboratory Tests Test 06/04/18 14:28 06/04/18 14:29 White Blood Count 22.6 x10^3/uL (4.0-11.0) Red Blood Count 5.02 x10^6/uL (3.50-5.40) Hemoglobin 13.5 g/dL (12.0-15.5) Hematocrit 40.1 % (36.0-47.0) Mean Corpuscular Volume 80 fL (79-100) Mean Corpuscular Hemoglobin 27 pg (25-35) Mean Corpuscular Hemoglobin Concent 34 g/dL (31-37) Red Cell Distribution Width 17.8 % (11.5-14.5) Platelet Count 463 x10^3/uL (140-400) Neutrophils (%) (Auto) 91 % (31-73) Lymphocytes (%) (Auto) 5 % (24-48) Monocytes (%) (Auto) 4 % (0-9) Eosinophils (%) (Auto) 0 % (0-3) Basophils (%) (Auto) 0 % (0-3) Neutrophils # (Auto) 20.6 x10^3uL (1.8-7.7) Lymphocytes # (Auto) 1.2 x10^3/uL (1.0-4.8) Monocytes # (Auto) 0.8 x10^3/uL (0.0-1.1) Eosinophils # (Auto) 0.0 x10^3/uL (0.0-0.7) Basophils # (Auto) 0.0 x10^3/uL (0.0-0.2) Segmented Neutrophils % 84 % (35-66) Band Neutrophils % 9 % (0-9) Lymphocytes % 3 % (24-48) Atypical Lymphocytes % (Manual) 1 % (0-0) Monocytes % 3 % (0-10) Platelet Estimate Increased (ADEQUATE) Large Platelets Few Anisocytosis Slight Prothrombin Time 13.3 SEC (11.7-14.0) Prothromb Time International Ratio 1.1 (0.8-1.1) Sodium Level 139 mmol/L (136-145) Potassium Level 4.5 mmol/L (3.5-5.1) Chloride Level 100 mmol/L (98-107) Carbon Dioxide Level 25 mmol/L (21-32) Anion Gap 14 (6-14) 16 mmol/L (6-14) Blood Urea Nitrogen 12 mg/dL (7-20) Creatinine 1.0 mg/dL (0.6-1.0) Estimated GFR (Cockcroft-Gault) 58.9 BUN/Creatinine Ratio 12 (6-20) Glucose Level 168 mg/dL (70-99) 171 mg/dL (70-99) Calcium Level 9.5 mg/dL (8.5-10.1) Total Bilirubin 0.4 mg/dL (0.2-1.0) Aspartate Amino Transf (AST/SGOT) 277 U/L (15-37) Alanine Aminotransferase (ALT/SGPT) 54 U/L (14-59) Alkaline Phosphatase 89 U/L (46-116) Troponin I Quantitative 14.405 ng/mL (0.000-0.055) Total Protein 7.3 g/dL (6.4-8.2) Albumin 3.8 g/dL (3.4-5.0) Albumin/Globulin Ratio 1.1 (1.0-1.7) Triglycerides Level 88 mg/dL (0-150) Cholesterol Level 180 mg/dL (0-200) LDL Cholesterol, Calculated 104 mg/dL (0-100) VLDL Cholesterol, Calculated 18 mg/dL (0-40) Non-HDL Cholesterol Calculated 122 mg/dL (0-129) HDL Cholesterol 58 mg/dL (40-60) Cholesterol/HDL Ratio 3.1 Serum Test, Qualitative Negative (NEG) Bedside Hemoglobin 15.0 g/dL (12-15) Bedside Hematocrit 44 % (36-40) Bedside Sodium 137 mmol/L (135-145) Bedside Potassium 4.7 mmol/L (3.5-5.0) Bedside Chloride 101 mmol/L (98-110) Bedside Total CO2 26 mmol/L (23-32) Bedside Blood Urea Nitrogen 14 mg/dL (8-26) Bedside Creatinine 0.7 mg/dL (0.5-1.4) Bedside Ionized Calcium (Dariusz) 1.01 mmol/L (1.13-1.32) Bedside Troponin I 9.73 ng/ml (<0.08) Laboratory Tests Test 06/04/18 14:28 06/04/18 14:29 White Blood Count 22.6 x10^3/uL (4.0-11.0) Red Blood Count 5.02 x10^6/uL (3.50-5.40) Hemoglobin 13.5 g/dL (12.0-15.5) Hematocrit 40.1 % (36.0-47.0) Mean Corpuscular Volume 80 fL (79-100) Mean Corpuscular Hemoglobin 27 pg (25-35) Mean Corpuscular Hemoglobin Concent 34 g/dL (31-37) Red Cell Distribution Width 17.8 % (11.5-14.5) Platelet Count 463 x10^3/uL (140-400) Neutrophils (%) (Auto) 91 % (31-73) Lymphocytes (%) (Auto) 5 % (24-48) Monocytes (%) (Auto) 4 % (0-9) Eosinophils (%) (Auto) 0 % (0-3) Basophils (%) (Auto) 0 % (0-3) Neutrophils # (Auto) 20.6 x10^3uL (1.8-7.7) Lymphocytes # (Auto) 1.2 x10^3/uL (1.0-4.8) Monocytes # (Auto) 0.8 x10^3/uL (0.0-1.1) Eosinophils # (Auto) 0.0 x10^3/uL (0.0-0.7) Basophils # (Auto) 0.0 x10^3/uL (0.0-0.2) Segmented Neutrophils % 84 % (35-66) Band Neutrophils % 9 % (0-9) Lymphocytes % 3 % (24-48) Atypical Lymphocytes % (Manual) 1 % (0-0) Monocytes % 3 % (0-10) Platelet Estimate Increased (ADEQUATE) Large Platelets Few Anisocytosis Slight Prothrombin Time 13.3 SEC (11.7-14.0) Prothromb Time International Ratio 1.1 (0.8-1.1) Sodium Level 139 mmol/L (136-145) Potassium Level 4.5 mmol/L (3.5-5.1) Chloride Level 100 mmol/L (98-107) Carbon Dioxide Level 25 mmol/L (21-32) Anion Gap 14 (6-14) 16 mmol/L (6-14) Blood Urea Nitrogen 12 mg/dL (7-20) Creatinine 1.0 mg/dL (0.6-1.0) Estimated GFR (Cockcroft-Gault) 58.9 BUN/Creatinine Ratio 12 (6-20) Glucose Level 168 mg/dL (70-99) 171 mg/dL (70-99) Calcium Level 9.5 mg/dL (8.5-10.1) Total Bilirubin 0.4 mg/dL (0.2-1.0) Aspartate Amino Transf (AST/SGOT) 277 U/L (15-37) Alanine Aminotransferase (ALT/SGPT) 54 U/L (14-59) Alkaline Phosphatase 89 U/L (46-116) Troponin I Quantitative 14.405 ng/mL (0.000-0.055) Total Protein 7.3 g/dL (6.4-8.2) Albumin 3.8 g/dL (3.4-5.0) Albumin/Globulin Ratio 1.1 (1.0-1.7) Triglycerides Level 88 mg/dL (0-150) Cholesterol Level 180 mg/dL (0-200) LDL Cholesterol, Calculated 104 mg/dL (0-100) VLDL Cholesterol, Calculated 18 mg/dL (0-40) Non-HDL Cholesterol Calculated 122 mg/dL (0-129) HDL Cholesterol 58 mg/dL (40-60) Cholesterol/HDL Ratio 3.1 Serum Test, Qualitative Negative (NEG) Bedside Hemoglobin 15.0 g/dL (12-15) Bedside Hematocrit 44 % (36-40) Bedside Sodium 137 mmol/L (135-145) Bedside Potassium 4.7 mmol/L (3.5-5.0) Bedside Chloride 101 mmol/L (98-110) Bedside Total CO2 26 mmol/L (23-32) Bedside Blood Urea Nitrogen 14 mg/dL (8-26) Bedside Creatinine 0.7 mg/dL (0.5-1.4) Bedside Ionized Calcium (Dariusz) 1.01 mmol/L (1.13-1.32) Bedside Troponin I 9.73 ng/ml (<0.08) Assessment/Plan Assessment/Plan 1. Acute inferolateral ST elevation myocardial infarction based on EKG findings. Patient stated that her chest pain is significantly improved since admission. Start aspirin, heparin and proceed with emergent cardiac catheterization and possible angioplasty. Risks and benefits were explained and she is agreeable. 2. Nausea, vomiting. Leukocytosis: Treated per IM Thank you for your consultation MARIA VICTORIA JENNINGS MD Jun 04, 2018 16:14
[2018-06-04] MEDS ORDERED: 0.9 % SODIUM CHLORIDE 10 ML DISP.SYRIN. IV PRN (16:15)
[2018-06-04] MEDS ORDERED: ONDANSETRON PF 4 MG/2 ML VIAL. ONE (16:15)
[2018-06-04] MEDS: ONDANSETRON PF 4 MG/2 ML VIAL. IV PRN ×2 (16:18→18:06)
[2018-06-04] MEDS: CARVEDILOL 6.25 MG TABLET. PO SCH (17:00)
[2018-06-04] MEDS ORDERED: FLUT1DIS IH (17:26)
[2018-06-04] MEDS ORDERED: PROCHLORPERAZINE 10 MG/2 ML VIAL. IM PRN (17:30)
[2018-06-04] MEDS ORDERED: NITROGLYCERIN PREMIX 250 ML IV PRN (17:45)
[2018-06-04] MEDS: ALBUTEROL SULFATE 2.5 MG/3 ML NEBU. NEB SCH ×2 (18:00→20:01)
[2018-06-04] MEDS ORDERED: ALBUTEROL SULFATE 2.5 MG/3 ML NEBU. NEB SCH (18:00)
[2018-06-04] MEDS ORDERED: METOPROLOL TARTRATE 5 MG/5 ML VIAL. IVP SCH (18:00)
[2018-06-04] MEDS: IV 1/2 NORMAL SALINE 1,000 ML IV SCH (18:08)
[2018-06-04] MEDS ORDERED: PROCHLORPERAZINE 10 MG/2 ML VIAL. IV PRN (19:30)
[2018-06-04] MEDS: BUDESONIDE 0.5 MG/2 ML NEBU. NEB SCH (20:01)
[2018-06-04] MEDS ORDERED: NON FORMULARY ITEM (Fluticasone/Salmeterol (Advair 100-50 Diskus) 1 INH) IH SCH (21:00)
[2018-06-04] MEDS: METOPROLOL TARTRATE 5 MG/5 ML VIAL. IVP SCH (23:40)
[2018-06-05] VITALS (28 sets, daily range): BP systolic 90–142; BP diastolic 60–98
[2018-06-05] MEDS ORDERED: ALBUTEROL SULFATE 2.5 MG/3 ML NEBU. NEB PRN (03:30)
[2018-06-05 05:45] LABS: BASO # 0.1 x10^3/uL (0.0-0.2); BASO % 1 % (0-3); EOS % 0 % (0-3); HEMATOCRIT 37.6 % (36.0-47.0); HEMOGLOBIN 12.3 g/dL (12.0-15.5); LYMPH # 2.6 x10^3/uL (1.0-4.8); LYMPH % 11 % (24-48); MEAN CORPUSCULAR HEMOGLOBIN 26 pg (25-35); MEAN CORPUSCULAR HGB CONC 33 g/dL (31-37); MEAN CORPUSCULAR VOLUME 80 fL (79-100); MONO # 1.2 x10^3/uL (0.0-1.1); MONO % 5 % (0-9); NEUT % 84 % (31-73); PLATELET COUNT 393 x10^3/uL (140-400); RED BLOOD COUNT 4.68 x10^6/uL (3.50-5.40); RED CELL DISTRIBUTION WIDTH 18.1 % (11.5-14.5)
[2018-06-05] MEDS: METOPROLOL TARTRATE 5 MG/5 ML VIAL. IVP SCH ×3 (05:55→21:32)
[2018-06-05 05:57] LABS: CREATININE 0.8 mg/dL (0.6-1.0); GFR 76.2; POTASSIUM 4.8 mmol/L (3.5-5.1)
[2018-06-05] MEDS: IV 1/2 NORMAL SALINE 1,000 ML IV SCH ×2 (05:59→21:32)
--- NOTE | 2018-06-05 08:20 | EKG ---
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
[2018-06-05] MEDS ORDERED: DIVALPROEX SODIUM 750 MG PO SCH (09:00)
[2018-06-05] MEDS ORDERED: CITALOPRAM 10 MG TABLET. PO SCH (09:00)
[2018-06-05] MEDS: ASPIRIN ENTERIC COATED 325 MG TABLET.DR. PO SCH (09:08)
[2018-06-05] MEDS: CLOPIDOGREL BISULFATE 75 MG TABLET PO SCH (09:08)
[2018-06-05] MEDS: LISINOPRIL 5 MG TABLET. PO SCH (09:08)
[2018-06-05] MEDS: CARVEDILOL 6.25 MG TABLET. PO SCH ×2 (09:09→17:59)
[2018-06-05] MEDS: ALBUTEROL SULFATE 2.5 MG/3 ML NEBU. NEB SCH ×4 (09:51→23:50)
[2018-06-05] MEDS: BUDESONIDE 0.5 MG/2 ML NEBU. NEB SCH ×2 (09:52→19:30)
--- NOTE | 2018-06-05 10:38 | CARD ---
MR#: [id number] Date of Study: 06/04/2018 Ordering Physician: MARIA VICTORIA GUTIERREZ, Referring Physician: JUSTINE TOLBERT Tech: RT Enrique (R) APPROVED REPORT Technologist: RT Enrique (R) Nurse: Sarah Hernandez RN Procedure(s) performed: 1. Left heart catheterization, selective coronary angiography and left ventr iculography 2. Successful PTCA to the posterior descending branch of right coronary artery Sedation Time: 57 minutes INDICATION The indication(s) include : Acute inferior wall ST elevation myocardial infarction. PROCEDURE NARRATIVE After explaining the risks, benefits and alternative options, informed consent was obtained from saad ent. Patient was brought to the cardiac Operations Manager/Coordinator and her right groin was prepped and draped in the us ual fashion. 20 mL of 2% lidocaine was infiltrated into the skin and subcutaneous tissues for local a nesthesia. Arterial access was obtained in the right common femoral artery and a 6 Indonesian sheath was inserted. 6 Indonesian JL4 and 6 Indonesian JR4 catheters were used to perform selective angiography of the l eft and right coronary arteries. 6 Indonesian pigtail catheter was used to perform left ventriculography at the end of procedure. The following findings were noted. FINDINGS 1. Hemodynamics: Elevated left ventricle end-diastolic pressure of 24 mmHg consistent with acute on chronic diastolic and systolic heart failure. No pullback gradient across the aortic valve. 2. Left ventriculography: Severe hypokinesis of mid to distal myocardial segments with normally fun ctioning basal segments, pattern consistent with Takotsubo's cardiomyopathy. The ejection fraction es timated at 25%. 1+ mitral regurgitation seen. 3. Coronary angiography: a. The left main coronary artery arose from the left sinus of Valsalva, gave rise to the left and 2 descending, ramus intermedius and left circumflex arteries and did not show any significant stenosis. b. The left anterior descending artery showed 40% stenosis in the midsegment and 50% stenosis in the distal segment. c. The ramus intermedius artery showed 90% stenosis in the proximal segment. d. The left circumflex artery did not show any significant stenosis. e. The right coronary artery was a dominant vessel arising from the right sinus of Valsalva and show ed calcified 40% stenosis in the midsegment. The posterior descending branch which is a small to medi um caliber vessel showed 99% stenosis in a tortuous midsegment. INTERVENTION Patient was given intracoronary nitroglycerin in the left and right coronary arteries without any imp rovement in the lesions and patient continued to have ST elevations in the inferior leads. Hence a de cision was made to intervene on the posterior descending branch even though this was not a big vessel . The right coronary artery was engaged with a 6 Indonesian JR4 guide catheter and after several attempts at crossing the lesion in the posterior descending branch using Choice PT guidewire, this was crosse d with a 0.014 inch [employer] guidewire. This was then dilated with a 2.5 x 10 mm euphora balloo n. Follow-up angiography showed resolution of the stenosis to 0%. Since the PDA was a small-caliber v essel distally we decided to accept the balloon angioplasty result without any stent placement. Patie nt tolerated the procedure well. Hemostasis was achieved using mynx closure device and manual orion juli. There were no immediate complications. Conclusion 1. 99% stenosis involving the posterior descending branch of right coronary artery and 90% stenosis involving the ramus intermedius artery. 2. Severe hypokinesis of mid to distal myocardial segments with normally functioning basal segments, pattern consistent with Takotsubo's cardiomyopathy. The ejection fraction estimated at 25%. 3. Successful balloon PTCA to the posterior descending branch of right coronary artery. Recommendations 1. Aspirin 325 mg daily 2. Plavix 75 mg daily for preferably one year 3. Cardiovascular risk factor modification including smoking cessation 4. Start intravenous nitroglycerin drip and consider repeating coronary angiography prior to dischar ge to look for any change in the ramus intermedius artery lesion. If there is no improvement, we will consider intervening on this lesion prior to discharge. Signed by : Maria Victoria Gutierrez, Electronically Approved : 06/05/2018 10:38:06
--- NOTE | 2018-06-05 12:22 | PDOC ---
PROGRESS NOTES Chief Complaint Chief Complaint Takotsubo cardiomyopathy, estimated EF 25% Acute inferolateral ST elevation myocardial infarction s/p balloon angioplasty to the posterior descending branch of right coronary artery 06/04 Elevated troponins: 14, 71, 110, and 62 Nausea, vomiting Leukocytosis in the background of recent prednisone for URI sxs/walking PNA Recent acute bronchitis/walking PNA Reactive thrombocytosis Tobacco dependence, 1ppd Hypertension accelerated POA secondary to STEMI H/o COPD H/o celiac sprue H/o anxiety H/o HLD History of Present Illness History of Present Illness Pt seen and examined in ICU Pt laying in bed, resting at bedside Discussed with RN Vitals Vitals Vital Signs Date Time Temp Pulse Resp B/P (MAP) Pulse Ox O2 Delivery O2 Flow Rate FiO2 06/05/18 12:00 Nasal Cannula 2.0 06/05/18 11:45 18 100 06/05/18 11:00 105 105/75 (85) 06/05/18 07:00 98.8 98.8 Physical Exam General: Alert, mild distress Heart: Regular rate, Other (tachycardic, EKG still with mild ST elevation improved since admission ) Lungs: Clear Abdomen: Soft, No tenderness Extremities: No clubbing, No cyanosis, No edema, Other (dressing at right inguinal incisional site is clean, dry, and intact) Skin: No rashes, No breakdown, No significant lesion Labs LABS Laboratory Tests Test 06/04/18 14:28 06/04/18 14:29 06/04/18 17:35 06/04/18 20:43 White Blood Count 22.6 x10^3/uL (4.0-11.0) Red Blood Count 5.02 x10^6/uL (3.50-5.40) Hemoglobin 13.5 g/dL (12.0-15.5) Hematocrit 40.1 % (36.0-47.0) Mean Corpuscular Volume 80 fL (79-100) Mean Corpuscular Hemoglobin 27 pg (25-35) Mean Corpuscular Hemoglobin Concent 34 g/dL (31-37) Red Cell Distribution Width 17.8 % (11.5-14.5) Platelet Count 463 x10^3/uL (140-400) Neutrophils (%) (Auto) 91 % (31-73) Lymphocytes (%) (Auto) 5 % (24-48) Monocytes (%) (Auto) 4 % (0-9) Eosinophils (%) (Auto) 0 % (0-3) Basophils (%) (Auto) 0 % (0-3) Neutrophils # (Auto) 20.6 x10^3uL (1.8-7.7) Lymphocytes # (Auto) 1.2 x10^3/uL (1.0-4.8) Monocytes # (Auto) 0.8 x10^3/uL (0.0-1.1) Eosinophils # (Auto) 0.0 x10^3/uL (0.0-0.7) Basophils # (Auto) 0.0 x10^3/uL (0.0-0.2) Segmented Neutrophils % 84 % (35-66) Band Neutrophils % 9 % (0-9) Lymphocytes % 3 % (24-48) Atypical Lymphocytes % (Manual) 1 % (0-0) Monocytes % 3 % (0-10) Platelet Estimate Increased (ADEQUATE) Large Platelets Few Anisocytosis Slight Prothrombin Time 13.3 SEC (11.7-14.0) Prothromb Time International Ratio 1.1 (0.8-1.1) Sodium Level 139 mmol/L (136-145) Potassium Level 4.5 mmol/L (3.5-5.1) Chloride Level 100 mmol/L (98-107) Carbon Dioxide Level 25 mmol/L (21-32) Anion Gap 14 (6-14) 16 mmol/L (6-14) Blood Urea Nitrogen 12 mg/dL (7-20) Creatinine 1.0 mg/dL (0.6-1.0) Estimated GFR (Cockcroft-Gault) 58.9 BUN/Creatinine Ratio 12 (6-20) Glucose Level 168 mg/dL (70-99) 171 mg/dL (70-99) Calcium Level 9.5 mg/dL (8.5-10.1) Total Bilirubin 0.4 mg/dL (0.2-1.0) Aspartate Amino Transf (AST/SGOT) 277 U/L (15-37) Alanine Aminotransferase (ALT/SGPT) 54 U/L (14-59) Alkaline Phosphatase 89 U/L (46-116) Troponin I Quantitative 14.405 ng/mL (0.000-0.055) 71.146 ng/mL (0.000-0.055) 110.224 ng/mL (0.000-0.055) Total Protein 7.3 g/dL (6.4-8.2) Albumin 3.8 g/dL (3.4-5.0) Albumin/Globulin Ratio 1.1 (1.0-1.7) Triglycerides Level 88 mg/dL (0-150) Cholesterol Level 180 mg/dL (0-200) LDL Cholesterol, Calculated 104 mg/dL (0-100) VLDL Cholesterol, Calculated 18 mg/dL (0-40) Non-HDL Cholesterol Calculated 122 mg/dL (0-129) HDL Cholesterol 58 mg/dL (40-60) Cholesterol/HDL Ratio 3.1 Serum Test, Qualitative Negative (NEG) Bedside Hemoglobin 15.0 g/dL (12-15) Bedside Hematocrit 44 % (36-40) Bedside Sodium 137 mmol/L (135-145) Bedside Potassium 4.7 mmol/L (3.5-5.0) Bedside Chloride 101 mmol/L (98-110) Bedside Total CO2 26 mmol/L (23-32) Bedside Blood Urea Nitrogen 14 mg/dL (8-26) Bedside Creatinine 0.7 mg/dL (0.5-1.4) Bedside Ionized Calcium (Dariusz) 1.01 mmol/L (1.13-1.32) Bedside Troponin I 9.73 ng/ml (<0.08) Test 06/05/18 05:10 White Blood Count 25.0 x10^3/uL (4.0-11.0) Red Blood Count 4.68 x10^6/uL (3.50-5.40) Hemoglobin 12.3 g/dL (12.0-15.5) Hematocrit 37.6 % (36.0-47.0) Mean Corpuscular Volume 80 fL (79-100) Mean Corpuscular Hemoglobin 26 pg (25-35) Mean Corpuscular Hemoglobin Concent 33 g/dL (31-37) Red Cell Distribution Width 18.1 % (11.5-14.5) Platelet Count 393 x10^3/uL (140-400) Neutrophils (%) (Auto) 84 % (31-73) Lymphocytes (%) (Auto) 11 % (24-48) Monocytes (%) (Auto) 5 % (0-9) Eosinophils (%) (Auto) 0 % (0-3) Basophils (%) (Auto) 1 % (0-3) Neutrophils # (Auto) 21.0 x10^3uL (1.8-7.7) Lymphocytes # (Auto) 2.6 x10^3/uL (1.0-4.8) Monocytes # (Auto) 1.2 x10^3/uL (0.0-1.1) Eosinophils # (Auto) 0.0 x10^3/uL (0.0-0.7) Basophils # (Auto) 0.1 x10^3/uL (0.0-0.2) Sodium Level 137 mmol/L (136-145) Potassium Level 4.8 mmol/L (3.5-5.1) Chloride Level 101 mmol/L (98-107) Carbon Dioxide Level 24 mmol/L (21-32) Anion Gap 12 (6-14) Blood Urea Nitrogen 14 mg/dL (7-20) Creatinine 0.8 mg/dL (0.6-1.0) Estimated GFR (Cockcroft-Gault) 76.2 Glucose Level 119 mg/dL (70-99) Calcium Level 9.0 mg/dL (8.5-10.1) Troponin I Quantitative 62.557 ng/mL (0.000-0.055) Review of Systems Review of Systems Pt c/o left lower back pain that is chronic but worsened with laying in the hospital bed. She denies any fevers, chills, SHEPARD, CP, or SOA. Assessment and Plan Assessmemt and Plan Problems Medical Problems: (1) Acute myocardial infarction Status: Acute Assessment: Takotsubo cardiomyopathy, estimated EF 25% Acute inferolateral ST elevation myocardial infarction s/p balloon angioplasty to the posterior descending branch of right coronary artery 06/04 Elevated troponins: 14, 71, 110, and 62 Nausea, vomiting Leukocytosis in the background of recent prednisone for URI sxs/walking PNA Recent acute bronchitis/walking PNA Reactive thrombocytosis Tobacco dependence, 1ppd Hypertension accelerated POA secondary to STEMI H/o COPD H/o celiac sprue H/o anxiety H/o HLD Plan: ICU monitoring Labs IV nitro Nebs Pain meds prn Home meds Rocephin 1g IV Q24hrs PT/OT DVT ppx Comment Review of Relevant I have reviewed the following items mahsa (where applicable) has been applied. Labs Laboratory Tests Test 06/04/18 14:28 06/04/18 14:29 06/04/18 17:35 06/04/18 20:43 White Blood Count 22.6 x10^3/uL (4.0-11.0) Red Blood Count 5.02 x10^6/uL (3.50-5.40) Hemoglobin 13.5 g/dL (12.0-15.5) Hematocrit 40.1 % (36.0-47.0) Mean Corpuscular Volume 80 fL (79-100) Mean Corpuscular Hemoglobin 27 pg (25-35) Mean Corpuscular Hemoglobin Concent 34 g/dL (31-37) Red Cell Distribution Width 17.8 % (11.5-14.5) Platelet Count 463 x10^3/uL (140-400) Neutrophils (%) (Auto) 91 % (31-73) Lymphocytes (%) (Auto) 5 % (24-48) Monocytes (%) (Auto) 4 % (0-9) Eosinophils (%) (Auto) 0 % (0-3) Basophils (%) (Auto) 0 % (0-3) Neutrophils # (Auto) 20.6 x10^3uL (1.8-7.7) Lymphocytes # (Auto) 1.2 x10^3/uL (1.0-4.8) Monocytes # (Auto) 0.8 x10^3/uL (0.0-1.1) Eosinophils # (Auto) 0.0 x10^3/uL (0.0-0.7) Basophils # (Auto) 0.0 x10^3/uL (0.0-0.2) Segmented Neutrophils % 84 % (35-66) Band Neutrophils % 9 % (0-9) Lymphocytes % 3 % (24-48) Atypical Lymphocytes % (Manual) 1 % (0-0) Monocytes % 3 % (0-10) Platelet Estimate Increased (ADEQUATE) Large Platelets Few Anisocytosis Slight Prothrombin Time 13.3 SEC (11.7-14.0) Prothromb Time International Ratio 1.1 (0.8-1.1) Sodium Level 139 mmol/L (136-145) Potassium Level 4.5 mmol/L (3.5-5.1) Chloride Level 100 mmol/L (98-107) Carbon Dioxide Level 25 mmol/L (21-32) Anion Gap 14 (6-14) 16 mmol/L (6-14) Blood Urea Nitrogen 12 mg/dL (7-20) Creatinine 1.0 mg/dL (0.6-1.0) Estimated GFR (Cockcroft-Gault) 58.9 BUN/Creatinine Ratio 12 (6-20) Glucose Level 168 mg/dL (70-99) 171 mg/dL (70-99) Calcium Level 9.5 mg/dL (8.5-10.1) Total Bilirubin 0.4 mg/dL (0.2-1.0) Aspartate Amino Transf (AST/SGOT) 277 U/L (15-37) Alanine Aminotransferase (ALT/SGPT) 54 U/L (14-59) Alkaline Phosphatase 89 U/L (46-116) Troponin I Quantitative 14.405 ng/mL (0.000-0.055) 71.146 ng/mL (0.000-0.055) 110.224 ng/mL (0.000-0.055) Total Protein 7.3 g/dL (6.4-8.2) Albumin 3.8 g/dL (3.4-5.0) Albumin/Globulin Ratio 1.1 (1.0-1.7) Triglycerides Level 88 mg/dL (0-150) Cholesterol Level 180 mg/dL (0-200) LDL Cholesterol, Calculated 104 mg/dL (0-100) VLDL Cholesterol, Calculated 18 mg/dL (0-40) Non-HDL Cholesterol Calculated 122 mg/dL (0-129) HDL Cholesterol 58 mg/dL (40-60) Cholesterol/HDL Ratio 3.1 Serum Test, Qualitative Negative (NEG) Bedside Hemoglobin 15.0 g/dL (12-15) Bedside Hematocrit 44 % (36-40) Bedside Sodium 137 mmol/L (135-145) Bedside Potassium 4.7 mmol/L (3.5-5.0) Bedside Chloride 101 mmol/L (98-110) Bedside Total CO2 26 mmol/L (23-32) Bedside Blood Urea Nitrogen 14 mg/dL (8-26) Bedside Creatinine 0.7 mg/dL (0.5-1.4) Bedside Ionized Calcium (Dariusz) 1.01 mmol/L (1.13-1.32) Bedside Troponin I 9.73 ng/ml (<0.08) Test 06/05/18 05:10 White Blood Count 25.0 x10^3/uL (4.0-11.0) Red Blood Count 4.68 x10^6/uL (3.50-5.40) Hemoglobin 12.3 g/dL (12.0-15.5) Hematocrit 37.6 % (36.0-47.0) Mean Corpuscular Volume 80 fL (79-100) Mean Corpuscular Hemoglobin 26 pg (25-35) Mean Corpuscular Hemoglobin Concent 33 g/dL (31-37) Red Cell Distribution Width 18.1 % (11.5-14.5) Platelet Count 393 x10^3/uL (140-400) Neutrophils (%) (Auto) 84 % (31-73) Lymphocytes (%) (Auto) 11 % (24-48) Monocytes (%) (Auto) 5 % (0-9) Eosinophils (%) (Auto) 0 % (0-3) Basophils (%) (Auto) 1 % (0-3) Neutrophils # (Auto) 21.0 x10^3uL (1.8-7.7) Lymphocytes # (Auto) 2.6 x10^3/uL (1.0-4.8) Monocytes # (Auto) 1.2 x10^3/uL (0.0-1.1) Eosinophils # (Auto) 0.0 x10^3/uL (0.0-0.7) Basophils # (Auto) 0.1 x10^3/uL (0.0-0.2) Sodium Level 137 mmol/L (136-145) Potassium Level 4.8 mmol/L (3.5-5.1) Chloride Level 101 mmol/L (98-107) Carbon Dioxide Level 24 mmol/L (21-32) Anion Gap 12 (6-14) Blood Urea Nitrogen 14 mg/dL (7-20) Creatinine 0.8 mg/dL (0.6-1.0) Estimated GFR (Cockcroft-Gault) 76.2 Glucose Level 119 mg/dL (70-99) Calcium Level 9.0 mg/dL (8.5-10.1) Troponin I Quantitative 62.557 ng/mL (0.000-0.055) Laboratory Tests Test 06/04/18 14:28 06/04/18 14:29 06/04/18 17:35 06/04/18 20:43 White Blood Count 22.6 x10^3/uL (4.0-11.0) Red Blood Count 5.02 x10^6/uL (3.50-5.40) Hemoglobin 13.5 g/dL (12.0-15.5) Hematocrit 40.1 % (36.0-47.0) Mean Corpuscular Volume 80 fL (79-100) Mean Corpuscular Hemoglobin 27 pg (25-35) Mean Corpuscular Hemoglobin Concent 34 g/dL (31-37) Red Cell Distribution Width 17.8 % (11.5-14.5) Platelet Count 463 x10^3/uL (140-400) Neutrophils (%) (Auto) 91 % (31-73) Lymphocytes (%) (Auto) 5 % (24-48) Monocytes (%) (Auto) 4 % (0-9) Eosinophils (%) (Auto) 0 % (0-3) Basophils (%) (Auto) 0 % (0-3) Neutrophils # (Auto) 20.6 x10^3uL (1.8-7.7) Lymphocytes # (Auto) 1.2 x10^3/uL (1.0-4.8) Monocytes # (Auto) 0.8 x10^3/uL (0.0-1.1) Eosinophils # (Auto) 0.0 x10^3/uL (0.0-0.7) Basophils # (Auto) 0.0 x10^3/uL (0.0-0.2) Segmented Neutrophils % 84 % (35-66) Band Neutrophils % 9 % (0-9) Lymphocytes % 3 % (24-48) Atypical Lymphocytes % (Manual) 1 % (0-0) Monocytes % 3 % (0-10) Platelet Estimate Increased (ADEQUATE) Large Platelets Few Anisocytosis Slight Prothrombin Time 13.3 SEC (11.7-14.0) Prothromb Time International Ratio 1.1 (0.8-1.1) Sodium Level 139 mmol/L (136-145) Potassium Level 4.5 mmol/L (3.5-5.1) Chloride Level 100 mmol/L (98-107) Carbon Dioxide Level 25 mmol/L (21-32) Anion Gap 14 (6-14) 16 mmol/L (6-14) Blood Urea Nitrogen 12 mg/dL (7-20) Creatinine 1.0 mg/dL (0.6-1.0) Estimated GFR (Cockcroft-Gault) 58.9 BUN/Creatinine Ratio 12 (6-20) Glucose Level 168 mg/dL (70-99) 171 mg/dL (70-99) Calcium Level 9.5 mg/dL (8.5-10.1) Total Bilirubin 0.4 mg/dL (0.2-1.0) Aspartate Amino Transf (AST/SGOT) 277 U/L (15-37) Alanine Aminotransferase (ALT/SGPT) 54 U/L (14-59) Alkaline Phosphatase 89 U/L (46-116) Troponin I Quantitative 14.405 ng/mL (0.000-0.055) 71.146 ng/mL (0.000-0.055) 110.224 ng/mL (0.000-0.055) Total Protein 7.3 g/dL (6.4-8.2) Albumin 3.8 g/dL (3.4-5.0) Albumin/Globulin Ratio 1.1 (1.0-1.7) Triglycerides Level 88 mg/dL (0-150) Cholesterol Level 180 mg/dL (0-200) LDL Cholesterol, Calculated 104 mg/dL (0-100) VLDL Cholesterol, Calculated 18 mg/dL (0-40) Non-HDL Cholesterol Calculated 122 mg/dL (0-129) HDL Cholesterol 58 mg/dL (40-60) Cholesterol/HDL Ratio 3.1 Serum Test, Qualitative Negative (NEG) Bedside Hemoglobin 15.0 g/dL (12-15) Bedside Hematocrit 44 % (36-40) Bedside Sodium 137 mmol/L (135-145) Bedside Potassium 4.7 mmol/L (3.5-5.0) Bedside Chloride 101 mmol/L (98-110) Bedside Total CO2 26 mmol/L (23-32) Bedside Blood Urea Nitrogen 14 mg/dL (8-26) Bedside Creatinine 0.7 mg/dL (0.5-1.4) Bedside Ionized Calcium (Dariusz) 1.01 mmol/L (1.13-1.32) Bedside Troponin I 9.73 ng/ml (<0.08) Test 06/05/18 05:10 White Blood Count 25.0 x10^3/uL (4.0-11.0) Red Blood Count 4.68 x10^6/uL (3.50-5.40) Hemoglobin 12.3 g/dL (12.0-15.5) Hematocrit 37.6 % (36.0-47.0) Mean Corpuscular Volume 80 fL (79-100) Mean Corpuscular Hemoglobin 26 pg (25-35) Mean Corpuscular Hemoglobin Concent 33 g/dL (31-37) Red Cell Distribution Width 18.1 % (11.5-14.5) Platelet Count 393 x10^3/uL (140-400) Neutrophils (%) (Auto) 84 % (31-73) Lymphocytes (%) (Auto) 11 % (24-48) Monocytes (%) (Auto) 5 % (0-9) Eosinophils (%) (Auto) 0 % (0-3) Basophils (%) (Auto) 1 % (0-3) Neutrophils # (Auto) 21.0 x10^3uL (1.8-7.7) Lymphocytes # (Auto) 2.6 x10^3/uL (1.0-4.8) Monocytes # (Auto) 1.2 x10^3/uL (0.0-1.1) Eosinophils # (Auto) 0.0 x10^3/uL (0.0-0.7) Basophils # (Auto) 0.1 x10^3/uL (0.0-0.2) Sodium Level 137 mmol/L (136-145) Potassium Level 4.8 mmol/L (3.5-5.1) Chloride Level 101 mmol/L (98-107) Carbon Dioxide Level 24 mmol/L (21-32) Anion Gap 12 (6-14) Blood Urea Nitrogen 14 mg/dL (7-20) Creatinine 0.8 mg/dL (0.6-1.0) Estimated GFR (Cockcroft-Gault) 76.2 Glucose Level 119 mg/dL (70-99) Calcium Level 9.0 mg/dL (8.5-10.1) Troponin I Quantitative 62.557 ng/mL (0.000-0.055) Medications Current Medications Heparin Sodium (Porcine) (Heparin Sodium) 10,000 unit STK-MED ONCE .ROUTE ; Start 06/04/18 at 14:27; Stop 06/04/18 at 17:46; Status DC Heparin Sodium/ Dextrose 0 ml @ As Directed STK-MED ONCE IV ; Start 06/04/18 at 14:27; Stop 06/04/18 at 14:28; Status DC Sodium Chloride 1,000 ml @ 1,000 mls/hr Q1H IV Last administered on at 14:34; Start 06/04/18 at 14:26; Stop 06/04/18 at 15:25; Status DC Aspirin (Children'S Aspirin) 324 mg 1X ONCE PO Last administered on at 14:38; Start 06/04/18 at 14:30; Stop 06/04/18 at 14:35; Status DC Heparin Sodium (Porcine) (Heparin Sodium) 4,000 unit 1X ONCE IV Last administered on 06/04/18at 14:43; Start 06/04/18 at 14:30; Stop 06/04/18 at 17 :46; Status DC Fentanyl Citrate (Fentanyl 2ml Vial) 50 mcg 1X ONCE IV Last administered on at 14:41; Start 06/04/18 at 14:45; Stop 06/04/18 at 14:46; Status DC Ondansetron HCl (Zofran) 4 mg 1X ONCE IV Last administered on 06/04/18at 14:45 ; Start 06/04/18 at 14:45; Stop 06/04/18 at 14:46; Status DC Ondansetron HCl (Zofran) 4 mg PRN Q8HRS PRN IV NAUSEA/VOMITING Last administered on 06/04/18at 14:49; Start 06/04/18 at 14:45; Stop 06/04/18 at 15 :05; Status DC Fentanyl Citrate (Fentanyl 2ml Vial) 50 mcg PRN Q2HR PRN IV PAIN Last administered on 06/05/18at 11:15; Start 06/04/18 at 16:00; Stop 06/05/18 at 15 :59 Sodium Chloride 1,000 ml @ 75 mls/hr [id number] IV Last administered on at 16:05; Start 06/04/18 at 14:41; Stop 06/04/18 at 16:41; Status DC Acetaminophen (Tylenol) 650 mg PRN Q4HRS PRN PO FEVER; Start 06/04/18 at 14:45 ; Stop 06/05/18 at 14:44; Status Cancel Nitroglycerin (Nitrostat) 0.4 mg PRN Q5MIN PRN SL CHEST PAIN; Start 06/04/18 at 14:45; Stop 06/05/18 at 14:44; Status Cancel Iodixanol (Visipaque 320) 100 ml STK-MED ONCE .ROUTE ; Start 06/04/18 at 14:58 ; Stop 06/04/18 at 14:59; Status DC Lidocaine HCl (Xylocaine 1% Pf 30ml Vial) 30 ml STK-MED ONCE .ROUTE ; Start at 14:58; Stop 06/04/18 at 14:59; Status DC Heparin Sodium/ Sodium Chloride 1,000 ml @ As Directed STK-MED ONCE .ROUTE ; Start 06/04/18 at 14:58; Stop 06/04/18 at 14:59; Status DC Fentanyl Citrate (Fentanyl 2ml Vial) 100 mcg STK-MED ONCE .ROUTE ; Start at 15:02; Stop 06/04/18 at 15:03; Status DC Midazolam HCl (Versed) 2 mg STK-MED ONCE .ROUTE ; Start 06/04/18 at 15:02; Stop 06/04/18 at 15:03; Status DC Ondansetron HCl (Zofran) 4 mg PRN Q6HRS PRN IV NAUSEA/VOMITING Last administered on 06/04/18at 18:06; Start 06/04/18 at 15:15 Nicotine (Nicoderm Cq 21mg) 1 patch PRN DAILY PRN TD SMOKING CESSATION Last administered on 06/04/18at 18:11; Start 06/04/18 at 15:15 Nicotine Polacrilex (Nicorette Gum) 1 each PRN Q1HR PRN BC SMOKING CESSATION; Start 06/04/18 at 15:15 Oxycodone/ Acetaminophen (Percocet 5/325) 1 tab PRN Q4HRS PRN PO PAIN; Start 06/04/18 at 15:15 Diphenhydramine HCl (Benadryl) 25 mg PRN QHS PRN PO INSOMNIA; Start 06/04/18 at 15:15 Albuterol Sulfate (Ventolin Hfa) 2 puff Q4HRS PRN INH SHORTNESS OF BREATH; Start 06/04/18 at 15:15; Stop 06/04/18 at 15:36; Status DC Citalopram Hydrobromide (CeleXA) 10 mg DAILY PO ; Start 06/05/18 at 09:00; Stop 06/05/18 at 09:00; Status DC Trazodone HCl (Desyrel) 100 mg PRN QHS PRN PO INSOMNIA; Start 06/04/18 at 15: 15 Diazepam (Valium) 10 mg PRN DAILY PRN PO ANXIETY / AGITATION; Start 06/04/18 at 15:15 Non-Formulary Medication (Divalproex Sodium (Depakote)) 750 mg DAILY PO ; Start 06/05/18 at 09:00; Status UNV Lisinopril (Prinivil) 2.5 mg DAILY PO ; Start 06/04/18 at 16:00; Stop at 16:39; Status DC Midazolam HCl (Versed) 2 mg STK-MED ONCE .ROUTE ; Start 06/04/18 at 15:15; Stop 06/04/18 at 15:16; Status DC Bivalirudin (Angiomax) 250 mg STK-MED ONCE IV ; Start 06/04/18 at 15:18; Stop 06/04/18 at 15:19; Status DC Iodixanol (Visipaque 320) 100 ml STK-MED ONCE .ROUTE ; Start 06/04/18 at 15:21 ; Stop 06/04/18 at 15:22; Status DC Fentanyl Citrate (Fentanyl 2ml Vial) 100 mcg STK-MED ONCE .ROUTE ; Start at 15:31; Stop 06/04/18 at 15:32; Status DC Albuterol Sulfate (Ventolin Neb Soln) 2.5 mg PRN Q4HRS PRN NEB SHORTNESS OF BREATH; Start 06/04/18 at 15:45; Stop 06/05/18 at 03:36; Status DC Nitroglycerin (Nitroglycerin) 200 mcg 1X ONCE IART Last administered on at 15:45; Start 06/04/18 at 15:45; Stop 06/04/18 at 17:46; Status DC Heparin Sodium/ Sodium Chloride (HEPARIN for ARTERIAL LINE FLUSH) 1,000 unit 1X ONCE IART Last administered on 06/04/18at 15:41; Start 06/04/18 at 15:45; Stop 06/04/18 at 17:46; Status DC Heparin Sodium/ Sodium Chloride (HEPARIN for ARTERIAL LINE FLUSH) 1,000 unit 1X ONCE IART Last administered on 06/04/18at 15:41; Start 06/04/18 at 15:45; Stop 06/04/18 at 17:46; Status DC Midazolam HCl (Versed) 2 mg 1X ONCE IV Last administered on 06/04/18at 15:45; Start 06/04/18 at 15:45; Stop 06/04/18 at 15:46; Status DC Fentanyl Citrate (Fentanyl 2ml Vial) 100 mcg 1X ONCE IV Last administered on 06/04/18at 15:45; Start 06/04/18 at 15:45; Stop 06/04/18 at 15:46; Status DC Iodixanol (Visipaque 320) 100 ml 1X ONCE IART Last administered on 06/04/18at 15:45; Start 06/04/18 at 15:45; Stop 06/04/18 at 15:46; Status DC Bivalirudin (Angiomax) 250 mg 1X ONCE IV Last administered on 06/04/18at 15:41 ; Start 06/04/18 at 15:45; Stop 06/04/18 at 15:46; Status DC Lidocaine HCl (Xylocaine 1% Pf 30ml Vial) 30 ml 1X ONCE INJ Last administered on 06/04/18at 15:45; Start 06/04/18 at 15:45; Stop 06/04/18 at 15:46; Status DC Info (CONTRAST GIVEN -- Rx MONITORING) 1 each PRN DAILY PRN MC SEE COMMENTS; Start 06/04/18 at 15:45; Stop 06/06/18 at 15:44 Clopidogrel Bisulfate (Plavix) 600 mg 1X ONCE PO Last administered on at 16:00; Start 06/04/18 at 16:00; Stop 06/04/18 at 16:01; Status DC Sodium Chloride (Normal Saline Flush) 3 ml QSHIFT PRN IV AFTER MEDS AND BLOOD DRAWS; Start 06/04/18 at 16:15 Sodium Chloride 1,000 ml @ 75 mls/hr [id number] IV Last administered on at 05:59; Start 06/04/18 at 16:14 Aspirin (Ecotrin) 325 mg DAILYWBKFT PO Last administered on 06/05/18at 09:08; Start 06/05/18 at 08:00 Clopidogrel Bisulfate (Plavix) 75 mg DAILYWBKFT PO Last administered on at 09:08; Start 06/05/18 at 08:00 Carvedilol (Coreg) 6.25 mg BIDWMEALS PO Last administered on 06/05/18at 09:09; Start 06/04/18 at 17:00 Lisinopril (Prinivil) 5 mg DAILY PO Last administered on 06/05/18at 09:08; Start 06/05/18 at 09:00 Acetaminophen (Tylenol) 650 mg PRN Q6HRS PRN PO MILD PAIN / TEMP; Start at 16:15 Nitroglycerin (Nitrostat) 0.4 mg PRN Q5MIN PRN SL CHEST PAIN; Start 06/04/18 at 16:15; Stop 06/04/18 at 17:46; Status DC Ondansetron HCl (Zofran) 4 mg STK-MED ONCE .ROUTE ; Start 06/04/18 at 16:15; Stop 06/04/18 at 16:16; Status DC Metoprolol Tartrate (Lopressor Vial) 10 mg Q8HRS IVP Last administered on 06/04at 18:08; Start 06/04/18 at 18:00; Stop 06/04/18 at 20:10; Status DC Prochlorperazine Edisylate (Compazine) 10 mg PRN Q6HRS PRN IM NAUSEA/VOMITING Last administered on 06/04/18at 18:07; Start 06/04/18 at 17:30; Stop 06/04/18 at 19:25; Status DC Non-Formulary Medication (Fluticasone/ Salmeterol (Advair 100-50 Diskus)) 1 inh BID IH ; Start 06/04/18 at 21:00; Status UNV Nitroglycerin/ Dextrose 250 ml @ 1.5 mls/hr CONT PRN IV SEE I/O RECORD; Start 06/04/18 at 17:45 Albuterol Sulfate (Ventolin Neb Soln) 2.5 mg Q6HRS NEB ; Start 06/04/18 at 18: 00; Status Cancel Albuterol Sulfate (Ventolin Neb Soln) 2.5 mg Q6HRS NEB Last administered on at 09:51; Start 06/04/18 at 18:00 Budesonide (Pulmicort) 0.5 mg RTBID NEB Last administered on 06/05/18at 09:52; Start 06/04/18 at 20:00 Prochlorperazine Edisylate (Compazine) 10 mg PRN Q6HRS PRN IV NAUSEA/VOMITING Last administered on 06/05/18at 05:54; Start 06/04/18 at 19:30 Metoprolol Tartrate (Lopressor Vial) 10 mg Q8HRS IVP Last administered on 06/05at 05:55; Start 06/05/18 at 00:00 Albuterol Sulfate (Ventolin Neb Soln) 2.5 mg PRN Q4HRS PRN NEB SHORTNESS OF BREATH Last administered on 06/05/18at 03:39; Start 06/05/18 at 03:30 Ceftriaxone Sodium 1 gm/ Dextrose 50 ml @ 100 mls/hr Q24H IV ; Start 06/05/18 at 11:45; Status UNV Ceftriaxone Sodium (Rocephin) 1 gm Q24H IVP ; Start 06/05/18 at 12:00 Active Scripts Active Reported Advair 100-50 Diskus (Fluticasone/Salmeterol) 1 Each Disk.w.dev 1 Inh IH BID Albuterol Sulfate Hfa Inhaler (Albuterol Sulfate) 8.5 Gm Hfa.aer.ad 2 Puff INH Q4HRS PRN Lisinopril 2.5 Mg Tablet 2.5 Mg PO DAILY Diazepam 10 Mg Tablet 10 Mg PO DAILY PRN Vitals/I & O Vital Sign - Last 24 Hours 06/04/18 06/04/18 06/04/18 06/04/18 14:23 14:41 14:41 15:45 Temp 97.6 97.6 Pulse 102 100 Resp 22 14 22 18 B/P (MAP) 180/110 (133) Pulse Ox 96 100 99 O2 Delivery Room Air Room Air 06/04/18 06/04/18 06/04/18 06/04/18 16:25 16:45 16:56 17:00 Temp 97.0 97.0 Pulse 102 109 115 Resp 17 20 20 B/P (MAP) 172/100 (124) 180/105 (130) Pulse Ox 99 96 95 96 O2 Delivery Nasal Cannula Room Air Room Air Room Air O2 Flow Rate 2.0 06/04/18 06/04/18 06/04/18 06/04/18 17:00 17:15 17:30 18:00 Temp 97.1 97.1 Pulse 115 115 88 Resp 20 20 20 B/P (MAP) 170/100 (123) 162/98 (119) 147/112 (124) Pulse Ox 96 92 98 O2 Delivery Room Air Room Air Room Air Nasal Cannula O2 Flow Rate 2.0 06/04/18 06/04/18 06/04/18 06/04/18 18:08 19:00 19:15 19:30 Temp 97.8 97.8 Pulse 106 88 94 Resp 18 18 B/P (MAP) 170/119 146/114 (125) Pulse Ox 97 96 O2 Delivery Nasal Cannula Nasal Cannula Nasal Cannula O2 Flow Rate 2.0 2.0 2.0 06/04/18 06/04/18 06/04/18 06/04/18 19:30 19:45 20:00 20:04 Pulse 92 92 96 Resp 18 18 16 B/P (MAP) 149/106 (120) 153/104 (120) 146/107 (120) Pulse Ox 96 96 94 95 O2 Delivery Nasal Cannula Nasal Cannula Nasal Cannula Nasal Cannula O2 Flow Rate 2.0 2.0 2.0 1.0 06/04/18 06/04/18 06/04/18 06/04/18 20:04 20:15 20:30 20:45 Pulse 84 90 98 Resp 16 16 16 B/P (MAP) 118/93 (101) 121/92 (102) 145/107 (120) Pulse Ox 95 99 96 94 O2 Delivery Nasal Cannula Nasal Cannula Nasal Cannula Nasal Cannula O2 Flow Rate 1.0 2.0 2.0 2.0 06/04/18 06/04/18 06/04/18 06/04/18 21:00 21:15 21:30 21:45 Pulse 98 96 98 96 Resp 16 16 16 16 B/P (MAP) 128/95 (106) 135/95 (108) 152/102 (119) 128/92 (104) Pulse Ox 95 94 95 95 O2 Delivery Nasal Cannula Nasal Cannula Nasal Cannula Nasal Cannula O2 Flow Rate 2.0 2.0 2.0 2.0 06/04/18 06/04/18 06/04/18 06/04/18 22:00 22:15 22:30 23:00 Pulse 96 98 100 99 Resp 16 16 16 16 B/P (MAP) 132/94 (107) 141/101 (114) 145/102 (116) 133/91 (105) Pulse Ox 93 94 94 95 O2 Delivery Nasal Cannula Nasal Cannula Nasal Cannula Nasal Cannula O2 Flow Rate 2.0 2.0 2.0 2.0 06/04/18 06/04/18 06/04/18 06/04/18 23:30 23:40 23:45 23:49 Temp 98.0 98.0 Pulse 100 109 84 Resp 16 16 B/P (MAP) 145/93 (110) 145/93 110/79 (89) Pulse Ox 93 91 O2 Delivery Nasal Cannula Nasal Cannula Nasal Cannula O2 Flow Rate 2.0 2.0 2.0 06/05/18 06/05/18 06/05/18 06/05/18 00:00 00:16 00:30 01:00 Pulse 80 80 78 84 Resp 16 16 16 16 B/P (MAP) 123/90 (101) 109/76 (87) 102/80 (87) 116/88 (97) Pulse Ox 99 100 100 100 O2 Delivery Nasal Cannula Nasal Cannula Nasal Cannula Nasal Cannula O2 Flow Rate 2.0 2.0 2.0 2.0 06/05/18 06/05/18 06/05/18 06/05/18 01:30 02:00 02:30 03:00 Pulse 82 82 92 84 Resp 16 16 16 16 B/P (MAP) 132/76 (94) 132/76 (94) 118/79 (92) 110/72 (85) Pulse Ox 100 100 100 99 O2 Delivery Nasal Cannula Nasal Cannula Nasal Cannula Nasal Cannula O2 Flow Rate 2.0 2.0 2.0 2.0 06/05/18 06/05/18 06/05/18 06/05/18 03:39 04:04 04:17 05:00 Temp 98.1 98.1 Pulse 85 89 Resp 16 16 B/P (MAP) 109/71 (84) 123/79 (94) Pulse Ox 95 100 100 O2 Delivery Nasal Cannula Nasal Cannula Nasal Cannula Nasal Cannula O2 Flow Rate 3.0 2.0 2.0 2.0 06/05/18 06/05/18 06/05/18 06/05/18 05:55 06:02 07:00 08:00 Temp 98.8 98.8 Pulse 94 93 83 95 Resp 16 16 16 B/P (MAP) 123/79 110/78 (89) 116/87 (97) 120/78 (92) Pulse Ox 100 100 100 O2 Delivery Nasal Cannula Nasal Cannula Nasal Cannula O2 Flow Rate 2.0 2.0 2.0 06/05/18 06/05/18 06/05/18 06/05/18 08:00 09:00 09:08 09:09 Pulse 95 95 95 Resp 16 B/P (MAP) 119/78 (92) 120/78 120/78 Pulse Ox 100 O2 Delivery Nasal Cannula Nasal Cannula O2 Flow Rate 2.0 2.0 06/05/18 06/05/18 06/05/18 06/05/18 09:45 10:00 11:00 11:15 Pulse 85 105 Resp 16 16 18 B/P (MAP) 119/77 (91) 105/75 (85) Pulse Ox 94 100 100 100 O2 Delivery Room Air Nasal Cannula Nasal Cannula Nasal Cannula O2 Flow Rate 2.0 2.0 2.0 06/05/18 06/05/18 11:45 12:00 Resp 18 Pulse Ox 100 O2 Delivery Nasal Cannula Nasal Cannula O2 Flow Rate 2.0 2.0 Intake and Output 06/04/18 06/04/18 06/05/18 15:00 23:00 07:00 Intake Total 250 ml 2252 ml Output Total 500 ml 500 ml Balance -250 ml 1752 ml MARINO BATISTA III DO Jun 05, 2018 12:22
[2018-06-05] MEDS: cefTRIAXone IV Push 1 GM VIAL. IVP SCH (13:21)
--- NOTE | 2018-06-05 16:23 | PDOC ---
PROGRESS NOTES Subjective Subjective Patient feeling better. Denied any chest pain or shortness of breath. Nausea/ vomiting better. Objective Objective Vital Signs Date Time Temp Pulse Resp B/P (MAP) Pulse Ox O2 Delivery O2 Flow Rate FiO2 06/05/18 15:12 99 Nasal Cannula 3.0 06/05/18 15:00 98 16 122/85 (97) 06/05/18 12:00 99.0 99.0 Intake and Output 06/05/18 07:00 Intake Total 2502 ml Output Total 1000 ml Balance 1502 ml Intake Oral 500 ml IV Total 2002 ml Output Urine Total 500 ml Emesis 500 ml Physical Exam Abdomen: Soft, No tenderness Heart: Regular rate, Other (tachycardic, EKG still with mild ST elevation improved since admission ) Extremities: No clubbing, No cyanosis, No edema, Other (dressing at right inguinal incisional site is clean, dry, and intact) General: Alert, mild distress HEENT: Atraumatic, PERRLA Lungs: Clear to auscultation Neuro: Normal gait, Normal speech, Strength at 5/5 X4 ext, Normal tone, Sensation intact, Cranial nerves 3-12 NL, Reflexes 2+ Psych/Mental Status: Mood NL Skin: No rashes, No breakdown, No significant lesion Assessment Assessment 1. Acute inferior STEMI: Patient underwent successful PTCA to the posterior descending branch of right coronary artery. Findings consistent with Takotsubo' s cardiomyopathy with EF 25%. Patient also had 90% stenosis involving the ramus intermedius branch - cannot rule out spasm. We will repeat coronary angiography prior to discharge tomorrow. 2. Nausea, vomiting. Leukocytosis: Treat per IM Plan Plan of Care Problems Medical Problems: (1) Acute myocardial infarction Status: Acute Comment Review of Relevant I have reviewed the following items mahsa (where applicable) has been applied. Labs Laboratory Tests Test 06/04/18 17:35 06/04/18 20:43 06/05/18 05:10 Troponin I Quantitative 71.146 ng/mL (0.000-0.055) 110.224 ng/mL (0.000-0.055) 62.557 ng/mL (0.000-0.055) White Blood Count 25.0 x10^3/uL (4.0-11.0) Red Blood Count 4.68 x10^6/uL (3.50-5.40) Hemoglobin 12.3 g/dL (12.0-15.5) Hematocrit 37.6 % (36.0-47.0) Mean Corpuscular Volume 80 fL (79-100) Mean Corpuscular Hemoglobin 26 pg (25-35) Mean Corpuscular Hemoglobin Concent 33 g/dL (31-37) Red Cell Distribution Width 18.1 % (11.5-14.5) Platelet Count 393 x10^3/uL (140-400) Neutrophils (%) (Auto) 84 % (31-73) Lymphocytes (%) (Auto) 11 % (24-48) Monocytes (%) (Auto) 5 % (0-9) Eosinophils (%) (Auto) 0 % (0-3) Basophils (%) (Auto) 1 % (0-3) Neutrophils # (Auto) 21.0 x10^3uL (1.8-7.7) Lymphocytes # (Auto) 2.6 x10^3/uL (1.0-4.8) Monocytes # (Auto) 1.2 x10^3/uL (0.0-1.1) Eosinophils # (Auto) 0.0 x10^3/uL (0.0-0.7) Basophils # (Auto) 0.1 x10^3/uL (0.0-0.2) Sodium Level 137 mmol/L (136-145) Potassium Level 4.8 mmol/L (3.5-5.1) Chloride Level 101 mmol/L (98-107) Carbon Dioxide Level 24 mmol/L (21-32) Anion Gap 12 (6-14) Blood Urea Nitrogen 14 mg/dL (7-20) Creatinine 0.8 mg/dL (0.6-1.0) Estimated GFR (Cockcroft-Gault) 76.2 Glucose Level 119 mg/dL (70-99) Calcium Level 9.0 mg/dL (8.5-10.1) Medications Current Medications Albuterol Sulfate (Ventolin Neb Soln) 2.5 mg PRN Q4HRS PRN NEB SHORTNESS OF BREATH Last administered on 06/05/18at 03:39; Start 06/05/18 at 03:30 Albuterol Sulfate (Ventolin Neb Soln) 2.5 mg Q6HRS NEB Last administered on at 15:12; Start 06/04/18 at 18:00 Albuterol Sulfate (Ventolin Neb Soln) 2.5 mg Q6HRS NEB ; Start 06/04/18 at 18: 00; Status Cancel Aspirin (Ecotrin) 325 mg DAILYWBKFT PO Last administered on 06/05/18at 09:08; Start 06/05/18 at 08:00 Budesonide (Pulmicort) 0.5 mg RTBID NEB Last administered on 06/05/18at 09:52; Start 06/04/18 at 20:00 Carvedilol (Coreg) 6.25 mg BIDWMEALS PO Last administered on 06/05/18at 09:09; Start 06/04/18 at 17:00 Ceftriaxone Sodium 1 gm/ Dextrose 50 ml @ 100 mls/hr Q24H IV ; Start 06/05/18 at 11:45; Status UNV Ceftriaxone Sodium (Rocephin) 1 gm Q24H IVP Last administered on 06/05/18at 13: 21; Start 06/05/18 at 12:00 Citalopram Hydrobromide (CeleXA) 10 mg DAILY PO ; Start 06/05/18 at 09:00; Stop 06/05/18 at 09:00; Status DC Clopidogrel Bisulfate (Plavix) 75 mg DAILYWBKFT PO Last administered on at 09:08; Start 06/05/18 at 08:00 Lisinopril (Prinivil) 5 mg DAILY PO Last administered on 06/05/18at 09:08; Start 06/05/18 at 09:00 Metoprolol Tartrate (Lopressor Vial) 10 mg Q8HRS IVP Last administered on 06/04at 18:08; Start 06/04/18 at 18:00; Stop 06/04/18 at 20:10; Status DC Metoprolol Tartrate (Lopressor Vial) 10 mg Q8HRS IVP Last administered on 06/05at 05:55; Start 06/05/18 at 00:00 Nitroglycerin/ Dextrose 250 ml @ 1.5 mls/hr CONT PRN IV SEE I/O RECORD; Start 06/04/18 at 17:45 Non-Formulary Medication (Divalproex Sodium (Depakote)) 750 mg DAILY PO ; Start 06/05/18 at 09:00; Status UNV Non-Formulary Medication (Fluticasone/ Salmeterol (Advair 100-50 Diskus)) 1 inh BID IH ; Start 06/04/18 at 21:00; Status UNV Prochlorperazine Edisylate (Compazine) 10 mg PRN Q6HRS PRN IM NAUSEA/VOMITING Last administered on 06/04/18at 18:07; Start 06/04/18 at 17:30; Stop 06/04/18 at 19:25; Status DC Prochlorperazine Edisylate (Compazine) 10 mg PRN Q6HRS PRN IV NAUSEA/VOMITING Last administered on 06/05/18at 05:54; Start 06/04/18 at 19:30 Vitals/I & O Vital Sign - Last 24 Hours 06/04/18 06/04/18 06/04/18 06/04/18 16:25 16:45 16:56 17:00 Temp 97.0 97.0 Pulse 102 109 115 Resp 17 20 20 B/P (MAP) 172/100 (124) 180/105 (130) Pulse Ox 99 96 95 96 O2 Delivery Nasal Cannula Room Air Room Air Room Air O2 Flow Rate 2.0 06/04/18 06/04/18 06/04/18 06/04/18 17:00 17:15 17:30 18:00 Temp 97.1 97.1 Pulse 115 115 88 Resp 20 20 20 B/P (MAP) 170/100 (123) 162/98 (119) 147/112 (124) Pulse Ox 96 92 98 O2 Delivery Room Air Room Air Room Air Nasal Cannula O2 Flow Rate 2.0 06/04/18 06/04/18 06/04/18 06/04/18 18:08 19:00 19:15 19:30 Temp 97.8 97.8 Pulse 106 88 94 Resp 18 18 B/P (MAP) 170/119 146/114 (125) Pulse Ox 97 96 O2 Delivery Nasal Cannula Nasal Cannula Nasal Cannula O2 Flow Rate 2.0 2.0 2.0 06/04/18 06/04/18 06/04/18 06/04/18 19:30 19:45 20:00 20:04 Pulse 92 92 96 Resp 18 18 16 B/P (MAP) 149/106 (120) 153/104 (120) 146/107 (120) Pulse Ox 96 96 94 95 O2 Delivery Nasal Cannula Nasal Cannula Nasal Cannula Nasal Cannula O2 Flow Rate 2.0 2.0 2.0 1.0 06/04/18 06/04/18 06/04/18 06/04/18 20:04 20:15 20:30 20:45 Pulse 84 90 98 Resp 16 16 16 B/P (MAP) 118/93 (101) 121/92 (102) 145/107 (120) Pulse Ox 95 99 96 94 O2 Delivery Nasal Cannula Nasal Cannula Nasal Cannula Nasal Cannula O2 Flow Rate 1.0 2.0 2.0 2.0 06/04/18 06/04/18 06/04/18 06/04/18 21:00 21:15 21:30 21:45 Pulse 98 96 98 96 Resp 16 16 16 16 B/P (MAP) 128/95 (106) 135/95 (108) 152/102 (119) 128/92 (104) Pulse Ox 95 94 95 95 O2 Delivery Nasal Cannula Nasal Cannula Nasal Cannula Nasal Cannula O2 Flow Rate 2.0 2.0 2.0 2.0 06/04/18 06/04/18 06/04/18 06/04/18 22:00 22:15 22:30 23:00 Pulse 96 98 100 99 Resp 16 16 16 16 B/P (MAP) 132/94 (107) 141/101 (114) 145/102 (116) 133/91 (105) Pulse Ox 93 94 94 95 O2 Delivery Nasal Cannula Nasal Cannula Nasal Cannula Nasal Cannula O2 Flow Rate 2.0 2.0 2.0 2.0 06/04/18 06/04/18 06/04/18 06/04/18 23:30 23:40 23:45 23:49 Temp 98.0 98.0 Pulse 100 109 84 Resp 16 16 B/P (MAP) 145/93 (110) 145/93 110/79 (89) Pulse Ox 93 91 O2 Delivery Nasal Cannula Nasal Cannula Nasal Cannula O2 Flow Rate 2.0 2.0 2.0 06/05/18 06/05/18 06/05/18 06/05/18 00:00 00:16 00:30 01:00 Pulse 80 80 78 84 Resp 16 16 16 16 B/P (MAP) 123/90 (101) 109/76 (87) 102/80 (87) 116/88 (97) Pulse Ox 99 100 100 100 O2 Delivery Nasal Cannula Nasal Cannula Nasal Cannula Nasal Cannula O2 Flow Rate 2.0 2.0 2.0 2.0 06/05/18 06/05/18 06/05/18 06/05/18 01:30 02:00 02:30 03:00 Pulse 82 82 92 84 Resp 16 16 16 16 B/P (MAP) 132/76 (94) 132/76 (94) 118/79 (92) 110/72 (85) Pulse Ox 100 100 100 99 O2 Delivery Nasal Cannula Nasal Cannula Nasal Cannula Nasal Cannula O2 Flow Rate 2.0 2.0 2.0 2.0 06/05/18 06/05/18 06/05/18 06/05/18 03:39 04:04 04:17 05:00 Temp 98.1 98.1 Pulse 85 89 Resp 16 16 B/P (MAP) 109/71 (84) 123/79 (94) Pulse Ox 95 100 100 O2 Delivery Nasal Cannula Nasal Cannula Nasal Cannula Nasal Cannula O2 Flow Rate 3.0 2.0 2.0 2.0 06/05/18 06/05/18 06/05/18 06/05/18 05:55 06:02 07:00 08:00 Temp 98.8 98.8 Pulse 94 93 83 95 Resp 16 16 16 B/P (MAP) 123/79 110/78 (89) 116/87 (97) 120/78 (92) Pulse Ox 100 100 100 O2 Delivery Nasal Cannula Nasal Cannula Nasal Cannula O2 Flow Rate 2.0 2.0 2.0 06/05/18 06/05/18 06/05/18 06/05/18 08:00 09:00 09:08 09:09 Pulse 95 95 95 Resp 16 B/P (MAP) 119/78 (92) 120/78 120/78 Pulse Ox 100 O2 Delivery Nasal Cannula Nasal Cannula O2 Flow Rate 2.0 2.0 06/05/18 06/05/18 06/05/18 06/05/18 09:45 10:00 11:00 11:15 Pulse 85 105 Resp 16 16 18 B/P (MAP) 119/77 (91) 105/75 (85) Pulse Ox 94 100 100 100 O2 Delivery Room Air Nasal Cannula Nasal Cannula Nasal Cannula O2 Flow Rate 2.0 2.0 2.0 06/05/18 06/05/18 06/05/18 06/05/18 11:45 12:00 12:00 13:00 Temp 99.0 99.0 Pulse 100 105 Resp 18 16 16 B/P (MAP) 120/75 (90) 111/75 (87) Pulse Ox 100 100 100 O2 Delivery Nasal Cannula Nasal Cannula Nasal Cannula Nasal Cannula O2 Flow Rate 2.0 2.0 2.0 2.0 06/05/18 06/05/18 06/05/18 06/05/18 14:00 14:00 15:00 15:12 Pulse 102 98 98 Resp 16 16 B/P (MAP) 90/60 115/75 (88) 122/85 (97) Pulse Ox 100 100 99 O2 Delivery Nasal Cannula Nasal Cannula Nasal Cannula O2 Flow Rate 2.0 2.0 3.0 Intake and Output 06/04/18 06/04/18 06/05/18 15:00 23:00 07:00 Intake Total 250 ml 2252 ml Output Total 500 ml 500 ml Balance -250 ml 1752 ml MARIA VICTORIA JENNINGS MD Jun 05, 2018 16:23
[2018-06-05] MEDS: oxyCODONE/APAP 5/325 1 TAB TABLET PO PRN (17:58)
[2018-06-05] MEDS: diazePAM 5 MG TABLET PO PRN (17:59)
[2018-06-05] MEDS ORDERED: diazePAM 5 MG TABLET ONE (18:00)
[2018-06-06] VITALS (22 sets, daily range): BP systolic 88–151; BP diastolic 53–108
[2018-06-06] MEDS: oxyCODONE/APAP 5/325 1 TAB TABLET PO PRN ×2 (00:09→11:15)
[2018-06-06 05:09] LABS: BASO # 0.1 x10^3/uL (0.0-0.2); BASO % 1 % (0-3); EOS % 0 % (0-3); HEMOGLOBIN 11.2 g/dL (12.0-15.5); LYMPH % 18 % (24-48); MEAN CORPUSCULAR HEMOGLOBIN 27 pg (25-35); MEAN CORPUSCULAR HGB CONC 33 g/dL (31-37); MEAN CORPUSCULAR VOLUME 81 fL (79-100); MONO % 7 % (0-9); NEUT % 74 % (31-73); PLATELET COUNT 331 x10^3/uL (140-400); RED BLOOD COUNT 4.19 x10^6/uL (3.50-5.40); WHITE BLOOD COUNT 16.1 x10^3/uL (4.0-11.0)
[2018-06-06] MEDS: METOPROLOL TARTRATE 5 MG/5 ML VIAL. IVP SCH ×2 (05:57→14:00)
[2018-06-06 06:24] LABS: CALCIUM 8.5 mg/dL (8.5-10.1); CREATININE 0.7 mg/dL (0.6-1.0); GFR 88.9; MAGNESIUM 1.9 mg/dL (1.8-2.4)
[2018-06-06] MEDS: ALBUTEROL SULFATE 2.5 MG/3 ML NEBU. NEB SCH ×2 (06:53→12:00)
[2018-06-06] MEDS: BUDESONIDE 0.5 MG/2 ML NEBU. NEB SCH (06:53)
[2018-06-06] MEDS: LISINOPRIL 5 MG TABLET. PO SCH (08:26)
[2018-06-06] MEDS: CARVEDILOL 6.25 MG TABLET. PO SCH ×2 (08:27→17:54)
[2018-06-06] MEDS: diazePAM 5 MG TABLET PO PRN (08:27)
[2018-06-06] MEDS: CLOPIDOGREL BISULFATE 75 MG TABLET PO SCH (08:27)
[2018-06-06] MEDS: ASPIRIN ENTERIC COATED 325 MG TABLET.DR. PO SCH (08:27)
[2018-06-06] MEDS ORDERED: diazePAM 5 MG TABLET ONE (08:30)
[2018-06-06] MEDS: IV 1/2 NORMAL SALINE 1,000 ML IV SCH (11:16)
--- NOTE | 2018-06-06 11:22 | PDOC ---
PROGRESS NOTES Chief Complaint Chief Complaint Takotsubo cardiomyopathy, estimated EF 25% Acute inferolateral ST elevation myocardial infarction s/p balloon angioplasty to the posterior descending branch of right coronary artery 06/04 Elevated troponins: 14, 71, 110, and 62 Nausea, vomiting Leukocytosis in the background of recent prednisone for URI sxs/walking PNA Recent acute bronchitis/walking PNA Reactive thrombocytosis Tobacco dependence, 1ppd Hypertension accelerated POA secondary to STEMI H/o COPD H/o celiac sprue H/o anxiety H/o HLD History of Present Illness History of Present Illness Pt seen and examined in ICU Pt laying in bed, resting in NAD at bedside Discussed with RN Vitals Vitals Vital Signs Date Time Temp Pulse Resp B/P (MAP) Pulse Ox O2 Delivery O2 Flow Rate FiO2 06/06/18 09:00 80 20 126/90 (102) 98 Nasal Cannula 2.0 06/06/18 07:00 97.9 97.9 Physical Exam General: Alert, No acute distress Heart: Regular rate, Other (tachycardic) Lungs: Clear Abdomen: Soft, No tenderness Extremities: No clubbing, No cyanosis, No edema, Other (dressing at right inguinal incisional site is clean, dry, and intact) Skin: No rashes, No breakdown, No significant lesion Labs LABS Laboratory Tests Test 06/06/18 04:45 White Blood Count 16.1 x10^3/uL (4.0-11.0) Red Blood Count 4.19 x10^6/uL (3.50-5.40) Hemoglobin 11.2 g/dL (12.0-15.5) Hematocrit 34.0 % (36.0-47.0) Mean Corpuscular Volume 81 fL (79-100) Mean Corpuscular Hemoglobin 27 pg (25-35) Mean Corpuscular Hemoglobin Concent 33 g/dL (31-37) Red Cell Distribution Width 18.0 % (11.5-14.5) Platelet Count 331 x10^3/uL (140-400) Neutrophils (%) (Auto) 74 % (31-73) Lymphocytes (%) (Auto) 18 % (24-48) Monocytes (%) (Auto) 7 % (0-9) Eosinophils (%) (Auto) 0 % (0-3) Basophils (%) (Auto) 1 % (0-3) Neutrophils # (Auto) 12.0 x10^3uL (1.8-7.7) Lymphocytes # (Auto) 3.0 x10^3/uL (1.0-4.8) Monocytes # (Auto) 1.0 x10^3/uL (0.0-1.1) Eosinophils # (Auto) 0.0 x10^3/uL (0.0-0.7) Basophils # (Auto) 0.1 x10^3/uL (0.0-0.2) Sodium Level 134 mmol/L (136-145) Potassium Level 5.0 mmol/L (3.5-5.1) Chloride Level 99 mmol/L (98-107) Carbon Dioxide Level 26 mmol/L (21-32) Anion Gap 9 (6-14) Blood Urea Nitrogen 11 mg/dL (7-20) Creatinine 0.7 mg/dL (0.6-1.0) Estimated GFR (Cockcroft-Gault) 88.9 Glucose Level 100 mg/dL (70-99) Calcium Level 8.5 mg/dL (8.5-10.1) Magnesium Level 1.9 mg/dL (1.8-2.4) Review of Systems Review of Systems Pt is resting in NAD. She states N/V is improved, denies any fevers, chills, CP , or SOA. Assessment and Plan Assessmemt and Plan Problems Medical Problems: (1) Acute myocardial infarction Status: Acute Assessment: Takotsubo cardiomyopathy, estimated EF 25% Acute inferolateral ST elevation myocardial infarction s/p balloon angioplasty to the posterior descending branch of right coronary artery 06/04 Elevated troponins: 14, 71, 110, and 62 Nausea, vomiting Leukocytosis in the background of recent prednisone for URI sxs/walking PNA Recent acute bronchitis/walking PNA Reactive thrombocytosis Tobacco dependence, 1ppd Hypertension accelerated POA secondary to STEMI H/o COPD H/o celiac sprue H/o anxiety H/o HLD Plan: ICU monitoring Recath today Labs IV nitro Nebs Pain meds prn Home meds PT/OT DVT ppx Comment Review of Relevant I have reviewed the following items mahsa (where applicable) has been applied. Labs Laboratory Tests Test 06/04/18 14:28 06/04/18 14:29 06/04/18 17:35 06/04/18 20:43 White Blood Count 22.6 x10^3/uL (4.0-11.0) Red Blood Count 5.02 x10^6/uL (3.50-5.40) Hemoglobin 13.5 g/dL (12.0-15.5) Hematocrit 40.1 % (36.0-47.0) Mean Corpuscular Volume 80 fL (79-100) Mean Corpuscular Hemoglobin 27 pg (25-35) Mean Corpuscular Hemoglobin Concent 34 g/dL (31-37) Red Cell Distribution Width 17.8 % (11.5-14.5) Platelet Count 463 x10^3/uL (140-400) Neutrophils (%) (Auto) 91 % (31-73) Lymphocytes (%) (Auto) 5 % (24-48) Monocytes (%) (Auto) 4 % (0-9) Eosinophils (%) (Auto) 0 % (0-3) Basophils (%) (Auto) 0 % (0-3) Neutrophils # (Auto) 20.6 x10^3uL (1.8-7.7) Lymphocytes # (Auto) 1.2 x10^3/uL (1.0-4.8) Monocytes # (Auto) 0.8 x10^3/uL (0.0-1.1) Eosinophils # (Auto) 0.0 x10^3/uL (0.0-0.7) Basophils # (Auto) 0.0 x10^3/uL (0.0-0.2) Segmented Neutrophils % 84 % (35-66) Band Neutrophils % 9 % (0-9) Lymphocytes % 3 % (24-48) Atypical Lymphocytes % (Manual) 1 % (0-0) Monocytes % 3 % (0-10) Platelet Estimate Increased (ADEQUATE) Large Platelets Few Anisocytosis Slight Prothrombin Time 13.3 SEC (11.7-14.0) Prothromb Time International Ratio 1.1 (0.8-1.1) Sodium Level 139 mmol/L (136-145) Potassium Level 4.5 mmol/L (3.5-5.1) Chloride Level 100 mmol/L (98-107) Carbon Dioxide Level 25 mmol/L (21-32) Anion Gap 14 (6-14) 16 mmol/L (6-14) Blood Urea Nitrogen 12 mg/dL (7-20) Creatinine 1.0 mg/dL (0.6-1.0) Estimated GFR (Cockcroft-Gault) 58.9 BUN/Creatinine Ratio 12 (6-20) Glucose Level 168 mg/dL (70-99) 171 mg/dL (70-99) Calcium Level 9.5 mg/dL (8.5-10.1) Total Bilirubin 0.4 mg/dL (0.2-1.0) Aspartate Amino Transf (AST/SGOT) 277 U/L (15-37) Alanine Aminotransferase (ALT/SGPT) 54 U/L (14-59) Alkaline Phosphatase 89 U/L (46-116) Troponin I Quantitative 14.405 ng/mL (0.000-0.055) 71.146 ng/mL (0.000-0.055) 110.224 ng/mL (0.000-0.055) Total Protein 7.3 g/dL (6.4-8.2) Albumin 3.8 g/dL (3.4-5.0) Albumin/Globulin Ratio 1.1 (1.0-1.7) Triglycerides Level 88 mg/dL (0-150) Cholesterol Level 180 mg/dL (0-200) LDL Cholesterol, Calculated 104 mg/dL (0-100) VLDL Cholesterol, Calculated 18 mg/dL (0-40) Non-HDL Cholesterol Calculated 122 mg/dL (0-129) HDL Cholesterol 58 mg/dL (40-60) Cholesterol/HDL Ratio 3.1 Serum Test, Qualitative Negative (NEG) Bedside Hemoglobin 15.0 g/dL (12-15) Bedside Hematocrit 44 % (36-40) Bedside Sodium 137 mmol/L (135-145) Bedside Potassium 4.7 mmol/L (3.5-5.0) Bedside Chloride 101 mmol/L (98-110) Bedside Total CO2 26 mmol/L (23-32) Bedside Blood Urea Nitrogen 14 mg/dL (8-26) Bedside Creatinine 0.7 mg/dL (0.5-1.4) Bedside Ionized Calcium (Dariusz) 1.01 mmol/L (1.13-1.32) Bedside Troponin I 9.73 ng/ml (<0.08) Test 06/05/18 05:10 06/06/18 04:45 White Blood Count 25.0 x10^3/uL (4.0-11.0) 16.1 x10^3/uL (4.0-11.0) Red Blood Count 4.68 x10^6/uL (3.50-5.40) 4.19 x10^6/uL (3.50-5.40) Hemoglobin 12.3 g/dL (12.0-15.5) 11.2 g/dL (12.0-15.5) Hematocrit 37.6 % (36.0-47.0) 34.0 % (36.0-47.0) Mean Corpuscular Volume 80 fL (79-100) 81 fL (79-100) Mean Corpuscular Hemoglobin 26 pg (25-35) 27 pg (25-35) Mean Corpuscular Hemoglobin Concent 33 g/dL (31-37) 33 g/dL (31-37) Red Cell Distribution Width 18.1 % (11.5-14.5) 18.0 % (11.5-14.5) Platelet Count 393 x10^3/uL (140-400) 331 x10^3/uL (140-400) Neutrophils (%) (Auto) 84 % (31-73) 74 % (31-73) Lymphocytes (%) (Auto) 11 % (24-48) 18 % (24-48) Monocytes (%) (Auto) 5 % (0-9) 7 % (0-9) Eosinophils (%) (Auto) 0 % (0-3) 0 % (0-3) Basophils (%) (Auto) 1 % (0-3) 1 % (0-3) Neutrophils # (Auto) 21.0 x10^3uL (1.8-7.7) 12.0 x10^3uL (1.8-7.7) Lymphocytes # (Auto) 2.6 x10^3/uL (1.0-4.8) 3.0 x10^3/uL (1.0-4.8) Monocytes # (Auto) 1.2 x10^3/uL (0.0-1.1) 1.0 x10^3/uL (0.0-1.1) Eosinophils # (Auto) 0.0 x10^3/uL (0.0-0.7) 0.0 x10^3/uL (0.0-0.7) Basophils # (Auto) 0.1 x10^3/uL (0.0-0.2) 0.1 x10^3/uL (0.0-0.2) Sodium Level 137 mmol/L (136-145) 134 mmol/L (136-145) Potassium Level 4.8 mmol/L (3.5-5.1) 5.0 mmol/L (3.5-5.1) Chloride Level 101 mmol/L (98-107) 99 mmol/L (98-107) Carbon Dioxide Level 24 mmol/L (21-32) 26 mmol/L (21-32) Anion Gap 12 (6-14) 9 (6-14) Blood Urea Nitrogen 14 mg/dL (7-20) 11 mg/dL (7-20) Creatinine 0.8 mg/dL (0.6-1.0) 0.7 mg/dL (0.6-1.0) Estimated GFR (Cockcroft-Gault) 76.2 88.9 Glucose Level 119 mg/dL (70-99) 100 mg/dL (70-99) Calcium Level 9.0 mg/dL (8.5-10.1) 8.5 mg/dL (8.5-10.1) Troponin I Quantitative 62.557 ng/mL (0.000-0.055) Magnesium Level 1.9 mg/dL (1.8-2.4) Laboratory Tests Test 06/06/18 04:45 White Blood Count 16.1 x10^3/uL (4.0-11.0) Red Blood Count 4.19 x10^6/uL (3.50-5.40) Hemoglobin 11.2 g/dL (12.0-15.5) Hematocrit 34.0 % (36.0-47.0) Mean Corpuscular Volume 81 fL (79-100) Mean Corpuscular Hemoglobin 27 pg (25-35) Mean Corpuscular Hemoglobin Concent 33 g/dL (31-37) Red Cell Distribution Width 18.0 % (11.5-14.5) Platelet Count 331 x10^3/uL (140-400) Neutrophils (%) (Auto) 74 % (31-73) Lymphocytes (%) (Auto) 18 % (24-48) Monocytes (%) (Auto) 7 % (0-9) Eosinophils (%) (Auto) 0 % (0-3) Basophils (%) (Auto) 1 % (0-3) Neutrophils # (Auto) 12.0 x10^3uL (1.8-7.7) Lymphocytes # (Auto) 3.0 x10^3/uL (1.0-4.8) Monocytes # (Auto) 1.0 x10^3/uL (0.0-1.1) Eosinophils # (Auto) 0.0 x10^3/uL (0.0-0.7) Basophils # (Auto) 0.1 x10^3/uL (0.0-0.2) Sodium Level 134 mmol/L (136-145) Potassium Level 5.0 mmol/L (3.5-5.1) Chloride Level 99 mmol/L (98-107) Carbon Dioxide Level 26 mmol/L (21-32) Anion Gap 9 (6-14) Blood Urea Nitrogen 11 mg/dL (7-20) Creatinine 0.7 mg/dL (0.6-1.0) Estimated GFR (Cockcroft-Gault) 88.9 Glucose Level 100 mg/dL (70-99) Calcium Level 8.5 mg/dL (8.5-10.1) Magnesium Level 1.9 mg/dL (1.8-2.4) Medications Current Medications Heparin Sodium (Porcine) (Heparin Sodium) 10,000 unit STK-MED ONCE .ROUTE ; Start 06/04/18 at 14:27; Stop 06/04/18 at 17:46; Status DC Heparin Sodium/ Dextrose 0 ml @ As Directed STK-MED ONCE IV ; Start 06/04/18 at 14:27; Stop 06/04/18 at 14:28; Status DC Sodium Chloride 1,000 ml @ 1,000 mls/hr Q1H IV Last administered on at 14:34; Start 06/04/18 at 14:26; Stop 06/04/18 at 15:25; Status DC Aspirin (Children'S Aspirin) 324 mg 1X ONCE PO Last administered on at 14:38; Start 06/04/18 at 14:30; Stop 06/04/18 at 14:35; Status DC Heparin Sodium (Porcine) (Heparin Sodium) 4,000 unit 1X ONCE IV Last administered on 06/04/18at 14:43; Start 06/04/18 at 14:30; Stop 06/04/18 at 17 :46; Status DC Fentanyl Citrate (Fentanyl 2ml Vial) 50 mcg 1X ONCE IV Last administered on at 14:41; Start 06/04/18 at 14:45; Stop 06/04/18 at 14:46; Status DC Ondansetron HCl (Zofran) 4 mg 1X ONCE IV Last administered on 06/04/18at 14:45 ; Start 06/04/18 at 14:45; Stop 06/04/18 at 14:46; Status DC Ondansetron HCl (Zofran) 4 mg PRN Q8HRS PRN IV NAUSEA/VOMITING Last administered on 06/04/18at 14:49; Start 06/04/18 at 14:45; Stop 06/04/18 at 15 :05; Status DC Fentanyl Citrate (Fentanyl 2ml Vial) 50 mcg PRN Q2HR PRN IV PAIN Last administered on 06/05/18at 11:15; Start 06/04/18 at 16:00; Stop 06/05/18 at 15 :59; Status DC Sodium Chloride 1,000 ml @ 75 mls/hr [id number] IV Last administered on at 16:05; Start 06/04/18 at 14:41; Stop 06/04/18 at 16:41; Status DC Acetaminophen (Tylenol) 650 mg PRN Q4HRS PRN PO FEVER; Start 06/04/18 at 14:45 ; Stop 06/05/18 at 14:44; Status Cancel Nitroglycerin (Nitrostat) 0.4 mg PRN Q5MIN PRN SL CHEST PAIN; Start 06/04/18 at 14:45; Stop 06/05/18 at 14:44; Status Cancel Iodixanol (Visipaque 320) 100 ml STK-MED ONCE .ROUTE ; Start 06/04/18 at 14:58 ; Stop 06/04/18 at 14:59; Status DC Lidocaine HCl (Xylocaine 1% Pf 30ml Vial) 30 ml STK-MED ONCE .ROUTE ; Start at 14:58; Stop 06/04/18 at 14:59; Status DC Heparin Sodium/ Sodium Chloride 1,000 ml @ As Directed STK-MED ONCE .ROUTE ; Start 06/04/18 at 14:58; Stop 06/04/18 at 14:59; Status DC Fentanyl Citrate (Fentanyl 2ml Vial) 100 mcg STK-MED ONCE .ROUTE ; Start at 15:02; Stop 06/04/18 at 15:03; Status DC Midazolam HCl (Versed) 2 mg STK-MED ONCE .ROUTE ; Start 06/04/18 at 15:02; Stop 06/04/18 at 15:03; Status DC Ondansetron HCl (Zofran) 4 mg PRN Q6HRS PRN IV NAUSEA/VOMITING, 1ST CHOICE Last administered on 06/04/18at 18:06; Start 06/04/18 at 15:15 Nicotine (Nicoderm Cq 21mg) 1 patch PRN DAILY PRN TD SMOKING CESSATION Last administered on 06/04/18at 18:11; Start 06/04/18 at 15:15 Nicotine Polacrilex (Nicorette Gum) 1 each PRN Q1HR PRN BC SMOKING CESSATION; Start 06/04/18 at 15:15 Oxycodone/ Acetaminophen (Percocet 5/325) 1 tab PRN Q4HRS PRN PO MODERATE - SEVERE PAIN Last administered on 06/06/18at 11:15; Start 06/04/18 at 15:15 Diphenhydramine HCl (Benadryl) 25 mg PRN QHS PRN PO INSOMNIA, 1ST CHOICE; Start 06/04/18 at 15:15 Albuterol Sulfate (Ventolin Hfa) 2 puff Q4HRS PRN INH SHORTNESS OF BREATH; Start 06/04/18 at 15:15; Stop 06/04/18 at 15:36; Status DC Citalopram Hydrobromide (CeleXA) 10 mg DAILY PO ; Start 06/05/18 at 09:00; Stop 06/05/18 at 09:00; Status DC Trazodone HCl (Desyrel) 100 mg PRN QHS PRN PO INSOMNIA, 2ND CHOICE; Start at 15:15 Diazepam (Valium) 10 mg PRN DAILY PRN PO ANXIETY / AGITATION Last administered on 06/06/18at 08:27; Start 06/04/18 at 15:15 Non-Formulary Medication (Divalproex Sodium (Depakote)) 750 mg DAILY PO ; Start 06/05/18 at 09:00; Status UNV Lisinopril (Prinivil) 2.5 mg DAILY PO ; Start 06/04/18 at 16:00; Stop at 16:39; Status DC Midazolam HCl (Versed) 2 mg STK-MED ONCE .ROUTE ; Start 06/04/18 at 15:15; Stop 06/04/18 at 15:16; Status DC Bivalirudin (Angiomax) 250 mg STK-MED ONCE IV ; Start 06/04/18 at 15:18; Stop 06/04/18 at 15:19; Status DC Iodixanol (Visipaque 320) 100 ml STK-MED ONCE .ROUTE ; Start 06/04/18 at 15:21 ; Stop 06/04/18 at 15:22; Status DC Fentanyl Citrate (Fentanyl 2ml Vial) 100 mcg STK-MED ONCE .ROUTE ; Start at 15:31; Stop 06/04/18 at 15:32; Status DC Albuterol Sulfate (Ventolin Neb Soln) 2.5 mg PRN Q4HRS PRN NEB SHORTNESS OF BREATH; Start 06/04/18 at 15:45; Stop 06/05/18 at 03:36; Status DC Nitroglycerin (Nitroglycerin) 200 mcg 1X ONCE IART Last administered on at 15:45; Start 06/04/18 at 15:45; Stop 06/04/18 at 17:46; Status DC Heparin Sodium/ Sodium Chloride (HEPARIN for ARTERIAL LINE FLUSH) 1,000 unit 1X ONCE IART Last administered on 06/04/18at 15:41; Start 06/04/18 at 15:45; Stop 06/04/18 at 17:46; Status DC Heparin Sodium/ Sodium Chloride (HEPARIN for ARTERIAL LINE FLUSH) 1,000 unit 1X ONCE IART Last administered on 06/04/18at 15:41; Start 06/04/18 at 15:45; Stop 06/04/18 at 17:46; Status DC Midazolam HCl (Versed) 2 mg 1X ONCE IV Last administered on 06/04/18at 15:45; Start 06/04/18 at 15:45; Stop 06/04/18 at 15:46; Status DC Fentanyl Citrate (Fentanyl 2ml Vial) 100 mcg 1X ONCE IV Last administered on 06/04/18at 15:45; Start 06/04/18 at 15:45; Stop 06/04/18 at 15:46; Status DC Iodixanol (Visipaque 320) 100 ml 1X ONCE IART Last administered on 06/04/18at 15:45; Start 06/04/18 at 15:45; Stop 06/04/18 at 15:46; Status DC Bivalirudin (Angiomax) 250 mg 1X ONCE IV Last administered on 06/04/18at 15:41 ; Start 06/04/18 at 15:45; Stop 06/04/18 at 15:46; Status DC Lidocaine HCl (Xylocaine 1% Pf 30ml Vial) 30 ml 1X ONCE INJ Last administered on 06/04/18at 15:45; Start 06/04/18 at 15:45; Stop 06/04/18 at 15:46; Status DC Info (CONTRAST GIVEN -- Rx MONITORING) 1 each PRN DAILY PRN MC SEE COMMENTS; Start 06/04/18 at 15:45; Stop 06/06/18 at 15:44 Clopidogrel Bisulfate (Plavix) 600 mg 1X ONCE PO Last administered on at 16:00; Start 06/04/18 at 16:00; Stop 06/04/18 at 16:01; Status DC Sodium Chloride (Normal Saline Flush) 3 ml QSHIFT PRN IV AFTER MEDS AND BLOOD DRAWS; Start 06/04/18 at 16:15 Sodium Chloride 1,000 ml @ 75 mls/hr [id number] IV Last administered on at 11:16; Start 06/04/18 at 16:14 Aspirin (Ecotrin) 325 mg DAILYWBKFT PO Last administered on 06/06/18at 08:27; Start 06/05/18 at 08:00 Clopidogrel Bisulfate (Plavix) 75 mg DAILYWBKFT PO Last administered on at 08:27; Start 06/05/18 at 08:00 Carvedilol (Coreg) 6.25 mg BIDWMEALS PO Last administered on 06/06/18at 08:27; Start 06/04/18 at 17:00 Lisinopril (Prinivil) 5 mg DAILY PO Last administered on 06/06/18at 08:26; Start 06/05/18 at 09:00 Acetaminophen (Tylenol) 650 mg PRN Q6HRS PRN PO MILD PAIN / TEMP; Start at 16:15 Nitroglycerin (Nitrostat) 0.4 mg PRN Q5MIN PRN SL CHEST PAIN; Start 06/04/18 at 16:15; Stop 06/04/18 at 17:46; Status DC Ondansetron HCl (Zofran) 4 mg STK-MED ONCE .ROUTE ; Start 06/04/18 at 16:15; Stop 06/04/18 at 16:16; Status DC Metoprolol Tartrate (Lopressor Vial) 10 mg Q8HRS IVP Last administered on 06/04at 18:08; Start 06/04/18 at 18:00; Stop 06/04/18 at 20:10; Status DC Prochlorperazine Edisylate (Compazine) 10 mg PRN Q6HRS PRN IM NAUSEA/VOMITING Last administered on 06/04/18at 18:07; Start 06/04/18 at 17:30; Stop 06/04/18 at 19:25; Status DC Non-Formulary Medication (Fluticasone/ Salmeterol (Advair 100-50 Diskus)) 1 inh BID IH ; Start 06/04/18 at 21:00; Status UNV Nitroglycerin/ Dextrose 250 ml @ 1.5 mls/hr CONT PRN IV SEE I/O RECORD Last administered on 06/06/18at 07:10; Start 06/04/18 at 17:45 Albuterol Sulfate (Ventolin Neb Soln) 2.5 mg Q6HRS NEB ; Start 06/04/18 at 18: 00; Status Cancel Albuterol Sulfate (Ventolin Neb Soln) 2.5 mg Q6HRS NEB Last administered on at 06:53; Start 06/04/18 at 18:00 Budesonide (Pulmicort) 0.5 mg RTBID NEB Last administered on 06/06/18at 06:53; Start 06/04/18 at 20:00 Prochlorperazine Edisylate (Compazine) 10 mg PRN Q6HRS PRN IV NAUSEA/VOMITING, 2ND CHOICE Last administered on 06/05/18at 05:54; Start 06/04/18 at 19:30 Metoprolol Tartrate (Lopressor Vial) 10 mg Q8HRS IVP Last administered on 06/06at 05:57; Start 06/05/18 at 00:00 Albuterol Sulfate (Ventolin Neb Soln) 2.5 mg PRN Q4HRS PRN NEB SHORTNESS OF BREATH Last administered on 06/05/18at 03:39; Start 06/05/18 at 03:30 Ceftriaxone Sodium 1 gm/ Dextrose 50 ml @ 100 mls/hr Q24H IV ; Start 06/05/18 at 11:45; Status UNV Ceftriaxone Sodium (Rocephin) 1 gm Q24H IVP Last administered on 06/05/18at 13: 21; Start 06/05/18 at 12:00 Active Scripts Active Reported Advair 100-50 Diskus (Fluticasone/Salmeterol) 1 Each Disk.w.dev 1 Inh IH BID Albuterol Sulfate Hfa Inhaler (Albuterol Sulfate) 8.5 Gm Hfa.aer.ad 2 Puff INH Q4HRS PRN Lisinopril 2.5 Mg Tablet 2.5 Mg PO DAILY Diazepam 10 Mg Tablet 10 Mg PO DAILY PRN Vitals/I & O Vital Sign - Last 24 Hours 06/05/18 06/05/18 06/05/18 06/05/18 11:45 12:00 12:00 13:00 Temp 99.0 99.0 Pulse 100 105 Resp 18 16 16 B/P (MAP) 120/75 (90) 111/75 (87) Pulse Ox 100 100 100 O2 Delivery Nasal Cannula Nasal Cannula Nasal Cannula Nasal Cannula O2 Flow Rate 2.0 2.0 2.0 2.0 06/05/18 06/05/18 06/05/18 06/05/18 14:00 14:00 15:00 15:12 Pulse 102 98 98 Resp 16 16 B/P (MAP) 90/60 115/75 (88) 122/85 (97) Pulse Ox 100 100 99 O2 Delivery Nasal Cannula Nasal Cannula Nasal Cannula O2 Flow Rate 2.0 2.0 3.0 10/29/06/05/18 06/05/18 06/05/18 16:00 16:00 17:00 17:58 Temp 98.8 98.8 Pulse 81 102 Resp 16 16 18 B/P (MAP) 90/60 (70) 108/85 (93) Pulse Ox 100 100 100 O2 Delivery Nasal Cannula Nasal Cannula Nasal Cannula Nasal Cannula O2 Flow Rate 2.0 2.0 2.0 2.0 06/05/18 06/05/18 06/05/18 06/05/18 17:59 18:00 19:00 19:30 Pulse 102 102 88 Resp 16 18 B/P (MAP) 108/85 100/85 (90) 120/74 (89) Pulse Ox 100 100 100 O2 Delivery Nasal Cannula Nasal Cannula Nasal Cannula O2 Flow Rate 2.0 2.0 3.0 06/05/18 06/05/18 06/05/18 06/05/18 20:00 20:00 21:00 21:32 Temp 98.3 98.3 Pulse 86 87 91 Resp 16 17 B/P (MAP) 122/86 (98) 142/98 (113) 134/95 Pulse Ox 100 97 O2 Delivery Nasal Cannula Nasal Cannula Nasal Cannula O2 Flow Rate 2.0 2.0 2.0 06/05/18 06/05/18 06/05/18 06/06/18 22:00 23:00 23:50 00:00 Temp 98.2 98.2 Pulse 72 76 75 Resp 20 19 20 B/P (MAP) 114/77 (89) 114/72 (86) 97/69 (78) Pulse Ox 95 100 100 93 O2 Delivery Nasal Cannula Nasal Cannula Nasal Cannula Nasal Cannula O2 Flow Rate 2.0 2.0 3.0 2.0 06/06/18 06/06/18 06/06/18 06/06/18 00:00 00:09 01:00 02:00 Pulse 78 77 Resp 16 18 18 B/P (MAP) 132/90 (104) 117/79 (92) Pulse Ox 97 93 92 O2 Delivery Nasal Cannula Nasal Cannula Nasal Cannula Nasal Cannula O2 Flow Rate 2.0 2.0 2.0 2.0 06/06/18 06/06/18 06/06/18 06/06/18 03:00 04:00 04:00 05:00 Temp 97.6 97.6 Pulse 79 76 78 Resp 14 15 16 B/P (MAP) 125/87 (100) 126/83 (97) 133/96 (108) Pulse Ox 93 96 95 O2 Delivery Nasal Cannula Nasal Cannula Nasal Cannula Nasal Cannula O2 Flow Rate 2.0 2.0 2.0 2.0 06/06/18 06/06/18 06/06/18 06/06/18 05:57 06:00 06:53 07:00 Temp 97.9 97.9 Pulse 77 81 73 Resp 18 14 B/P (MAP) 137/92 111/80 (90) 115/82 (93) Pulse Ox 95 94 98 O2 Delivery Nasal Cannula Room Air Nasal Cannula O2 Flow Rate 2.0 2.0 06/06/18 06/06/18 06/06/18 06/06/18 08:00 08:26 08:27 09:00 Pulse 75 82 72 80 Resp 12 20 B/P (MAP) 105/66 (79) 105/66 105/66 126/90 (102) Pulse Ox 98 98 O2 Delivery Nasal Cannula Nasal Cannula O2 Flow Rate 2.0 2.0 Intake and Output 06/05/18 06/05/18 06/06/18 15:00 23:00 07:00 Intake Total 970 ml 1269 ml 1118 ml Output Total 200 ml 350 ml 0 ml Balance 770 ml 919 ml 1118 ml Nutrition Consultation Dietary Evaluation: Recommendations by RD: Protein supplementation Comments: REC Ensure TID Expected Outcomes/Goals: PO intake to meet >75% est needs Malnutrition Findings: Food and Nutrition Intake (Mod: <75% est energy req 7days Weight Status: Underweight CASTLE,TONEYL Kathy III DO Jun 06, 2018 11:22
[2018-06-06] MEDS ORDERED: IOHEXOL 300 MG/ML 100ML VIAL. ONE (12:47)
[2018-06-06] MEDS: cefTRIAXone IV Push 1 GM VIAL. IVP SCH (12:48)
[2018-06-06] MEDS ORDERED: LIDOCAINE 1% PF 2 ML VIAL. ONE (12:48)
[2018-06-06] MEDS ORDERED: MIDAZOLAM HCL/PF 2 MG/2 ML VIAL. ONE (13:42)
[2018-06-06] MEDS ORDERED: HEPARIN for IV BOLUS 10,000 UNIT/10 ML VIAL. ONE (13:42)
[2018-06-06] MEDS ORDERED: VERAPAMIL 5 MG/2 ML VIAL. ONE (13:42)
[2018-06-06] MEDS ORDERED: NITROGLYCERIN 200 MCG/2 ML SYRINGE FOR CATH/VASC LAB. ONE (13:42)
[2018-06-06] MEDS ORDERED: fentaNYL PF VIAL 100 MCG/2 ML VIAL ONE (13:42)
[2018-06-06] MEDS ORDERED: LIDOCAINE 1% PF 2 ML VIAL. INJ ONE (14:00)
[2018-06-06] MEDS ORDERED: NITROGLYCERIN 200 MCG/2 ML SYRINGE FOR CATH/VASC LAB. IART ONE (14:00)
[2018-06-06] MEDS ORDERED: HEPARIN for IV BOLUS 10,000 UNIT/10 ML VIAL. IART ONE (14:00)
[2018-06-06] MEDS ORDERED: fentaNYL PF VIAL 100 MCG/2 ML VIAL IV ONE (14:00)
[2018-06-06] MEDS ORDERED: IOHEXOL 300 MG/ML 100ML VIAL. IART ONE (14:00)
[2018-06-06] MEDS ORDERED: MIDAZOLAM HCL/PF 2 MG/2 ML VIAL. IV ONE (14:00)
[2018-06-06] MEDS ORDERED: VERAPAMIL 5 MG/2 ML VIAL. IART ONE (14:00)
--- NOTE | 2018-06-06 17:28 | CARD ---
MR#: [id number] Date of Study: 06/06/2018 Ordering Physician: MARIA VICTORIA GUTIERREZ, Referring Physician: JUSTINE TOLBERT Tech: RT Aris (R) APPROVED REPORT Technologist: RT Aris (R) Nurse: Genoveva Tapia R.N. Procedure(s) performed: Left heart catheterization, selective coronary angiography via right transrad ial approach Moderate sedation: 21 minutes INDICATION The indication(s) include : 47-year-old female underwent cardiac catheterization 06/04/18 in the sett ing of acute inferior wall ST elevation myocardial infarction and acute on chronic combined systolic and diastolic heart failure. She was found to have several areas of possible coronary artery vasospas m, significant stenosis involving the posterior descending branch of right coronary artery that was s uccessfully angioplastied (without stent due to small caliber distally) and Takotsubo's cardiomyopath y. She presented today for follow-up angiography to look for resolution of the vasospasm and consider ation of intervention if spasm did not resolve.. PROCEDURE NARRATIVE After explaining the risks, benefits and alternative options, informed consent was obtained from saad ent. Patient was brought to the cardiac Ic Design Engineer and right wrist was prepped and draped in the usual fashion after confirming a positive modified Jimmy's test. Arterial access was obtained in the righ t radial artery and a 6 [place] sheath was inserted. 6 [place] Sean catheter was used to perform nova ective angiography of the left and right coronary arteries. LVEDP and transaortic gradients were regla ured. Patient tolerated the procedure well. Hemostasis was achieved using TR band. There were no im mediate complications. The following findings were noted. FINDINGS 1. Hemodynamics: Left ventricular end-diastolic pressure of 9 mmHg. No pullback gradient across the aortic valve. 2. Coronary angiography: a. The left main coronary artery arose from the left sinus of Valsalva, gave rise to the left anteri or descending, ramus intermedius and left circumflex arteries and did not show any significant stenos is. b. The left anterior descending artery showed 30% stenosis in the midsegment and 30% stenosis in the distal segment, slightly improved from prior cardiac catheterization. c. The left circumflex artery did not show any significant stenosis. d. The ramus intermedius artery showed 90% stenosis in the proximal segment. However, this is a smal l to medium caliber vessel distally. e. The right coronary artery was a large and dominant vessel arising from the right sinus of Valsalv a that showed 40% stenosis in the midsegment. The recently angioplastied posterior descending artery was patent with increase in the size of the vessel distally confirming that patient had vasospasm on prior cardiac catheterization. Conclusion Patent previously angioplastied posterior descending branch of right coronary artery. Improvement in previously described lesions confirming coronary artery vasospasm. This is consistent with the clinic al picture of Takotsubo's cardiomyopathy. The ramus intermedius branch showed significant stenosis in the proximal segment is a small to medium caliber vessel distally and can be managed medically. Recommendations Medical Therapy Signed by : Maria Victoria Gutierrez, Electronically Approved : 06/06/2018 17:27:28
--- NOTE | 2018-06-06 18:25 | PDOC3 ---
Discharge Summary Date of Admission: Jun 04, 2018 Date of Discharge: Jun 06, 2018 Follow-Up: 3-5 days Admitting Diagnosis comment: discharge diagnosis Chief Complaint Takotsubo cardiomyopathy, estimated EF 25% Acute inferolateral ST elevation myocardial infarction s/p balloon angioplasty to the posterior descending branch of right coronary artery 06/04 Elevated troponins: 14, 71, 110, and 62 Nausea, vomiting Leukocytosis in the background of recent prednisone for URI sxs/walking PNA Recent acute bronchitis/walking PNA Reactive thrombocytosis Tobacco dependence, 1ppd Hypertension accelerated POA secondary to STEMI H/o COPD H/o celiac sprue H/o anxiety H/o HLD History of Present Illness History of Present Illness Pt seen and examined in ICU Pt laying in bed, resting in NAD at bedside Discussed with RN Vitals Vitals Vital Signs Date Time Temp Pulse Resp B/P (MAP) Pulse Ox O2 Delivery O2 Flow Rate FiO2 06/06/18 09:00 80 20 126/90 (102) 98 Nasal Cannula 2.0 06/06/18 07:00 97.9 97.9 Physical Exam General: Alert, No acute distress Heart: Regular rate, Other (tachycardic) Lungs: Clear Abdomen: Soft, No tenderness Extremities: No clubbing, No cyanosis, No edema, Other (dressing at right inguinal incisional site is clean, dry, and intact) Skin: No rashes, No breakdown, No significant lesion Labs FINAL DIAGNOSIS Problems Medical Problems: (1) Acute myocardial infarction Status: Acute Brief Hospital Course Ms. Norwood is a 47 old [sex] who presented with [chf/cardiomyopathy ] CONDITION AT DISCHARGE: Improved Discharge Medications Current Medications Heparin Sodium (Porcine) (Heparin Sodium) 10,000 unit STK-MED ONCE .ROUTE ; Start 06/04/18 at 14:27; Stop 06/04/18 at 17:46; Status DC Heparin Sodium/ Dextrose 0 ml @ As Directed STK-MED ONCE IV ; Start 06/04/18 at 14:27; Stop 06/04/18 at 14:28; Status DC Sodium Chloride 1,000 ml @ 1,000 mls/hr Q1H IV Last administered on at 14:34; Start 06/04/18 at 14:26; Stop 06/04/18 at 15:25; Status DC Aspirin (Children'S Aspirin) 324 mg 1X ONCE PO Last administered on at 14:38; Start 06/04/18 at 14:30; Stop 06/04/18 at 14:35; Status DC Heparin Sodium (Porcine) (Heparin Sodium) 4,000 unit 1X ONCE IV Last administered on 06/04/18at 14:43; Start 06/04/18 at 14:30; Stop 06/04/18 at 17 :46; Status DC Fentanyl Citrate (Fentanyl 2ml Vial) 50 mcg 1X ONCE IV Last administered on at 14:41; Start 06/04/18 at 14:45; Stop 06/04/18 at 14:46; Status DC Ondansetron HCl (Zofran) 4 mg 1X ONCE IV Last administered on 06/04/18at 14:45 ; Start 06/04/18 at 14:45; Stop 06/04/18 at 14:46; Status DC Ondansetron HCl (Zofran) 4 mg PRN Q8HRS PRN IV NAUSEA/VOMITING Last administered on 06/04/18at 14:49; Start 06/04/18 at 14:45; Stop 06/04/18 at 15 :05; Status DC Fentanyl Citrate (Fentanyl 2ml Vial) 50 mcg PRN Q2HR PRN IV PAIN Last administered on 06/05/18at 11:15; Start 06/04/18 at 16:00; Stop 06/05/18 at 15 :59; Status DC Sodium Chloride 1,000 ml @ 75 mls/hr [id number] IV Last administered on at 16:05; Start 06/04/18 at 14:41; Stop 06/04/18 at 16:41; Status DC Acetaminophen (Tylenol) 650 mg PRN Q4HRS PRN PO FEVER; Start 06/04/18 at 14:45 ; Stop 06/05/18 at 14:44; Status Cancel Nitroglycerin (Nitrostat) 0.4 mg PRN Q5MIN PRN SL CHEST PAIN; Start 06/04/18 at 14:45; Stop 06/05/18 at 14:44; Status Cancel Iodixanol (Visipaque 320) 100 ml STK-MED ONCE .ROUTE ; Start 06/04/18 at 14:58 ; Stop 06/04/18 at 14:59; Status DC Lidocaine HCl (Xylocaine 1% Pf 30ml Vial) 30 ml STK-MED ONCE .ROUTE ; Start at 14:58; Stop 06/04/18 at 14:59; Status DC Heparin Sodium/ Sodium Chloride 1,000 ml @ As Directed STK-MED ONCE .ROUTE ; Start 06/04/18 at 14:58; Stop 06/04/18 at 14:59; Status DC Fentanyl Citrate (Fentanyl 2ml Vial) 100 mcg STK-MED ONCE .ROUTE ; Start at 15:02; Stop 06/04/18 at 15:03; Status DC Midazolam HCl (Versed) 2 mg STK-MED ONCE .ROUTE ; Start 06/04/18 at 15:02; Stop 06/04/18 at 15:03; Status DC Ondansetron HCl (Zofran) 4 mg PRN Q6HRS PRN IV NAUSEA/VOMITING, 1ST CHOICE Last administered on 06/04/18at 18:06; Start 06/04/18 at 15:15 Nicotine (Nicoderm Cq 21mg) 1 patch PRN DAILY PRN TD SMOKING CESSATION Last administered on 06/04/18at 18:11; Start 06/04/18 at 15:15 Nicotine Polacrilex (Nicorette Gum) 1 each PRN Q1HR PRN BC SMOKING CESSATION; Start 06/04/18 at 15:15 Oxycodone/ Acetaminophen (Percocet 5/325) 1 tab PRN Q4HRS PRN PO MODERATE - SEVERE PAIN Last administered on 06/06/18at 11:15; Start 06/04/18 at 15:15 Diphenhydramine HCl (Benadryl) 25 mg PRN QHS PRN PO INSOMNIA, 1ST CHOICE; Start 06/04/18 at 15:15 Albuterol Sulfate (Ventolin Hfa) 2 puff Q4HRS PRN INH SHORTNESS OF BREATH; Start 06/04/18 at 15:15; Stop 06/04/18 at 15:36; Status DC Citalopram Hydrobromide (CeleXA) 10 mg DAILY PO ; Start 06/05/18 at 09:00; Stop 06/05/18 at 09:00; Status DC Trazodone HCl (Desyrel) 100 mg PRN QHS PRN PO INSOMNIA, 2ND CHOICE; Start at 15:15 Diazepam (Valium) 10 mg PRN DAILY PRN PO ANXIETY / AGITATION Last administered on 06/06/18at 08:27; Start 06/04/18 at 15:15 Non-Formulary Medication (Divalproex Sodium (Depakote)) 750 mg DAILY PO ; Start 06/05/18 at 09:00; Status UNV Lisinopril (Prinivil) 2.5 mg DAILY PO ; Start 06/04/18 at 16:00; Stop at 16:39; Status DC Midazolam HCl (Versed) 2 mg STK-MED ONCE .ROUTE ; Start 06/04/18 at 15:15; Stop 06/04/18 at 15:16; Status DC Bivalirudin (Angiomax) 250 mg STK-MED ONCE IV ; Start 06/04/18 at 15:18; Stop 06/04/18 at 15:19; Status DC Iodixanol (Visipaque 320) 100 ml STK-MED ONCE .ROUTE ; Start 06/04/18 at 15:21 ; Stop 06/04/18 at 15:22; Status DC Fentanyl Citrate (Fentanyl 2ml Vial) 100 mcg STK-MED ONCE .ROUTE ; Start at 15:31; Stop 06/04/18 at 15:32; Status DC Albuterol Sulfate (Ventolin Neb Soln) 2.5 mg PRN Q4HRS PRN NEB SHORTNESS OF BREATH; Start 06/04/18 at 15:45; Stop 06/05/18 at 03:36; Status DC Nitroglycerin (Nitroglycerin) 200 mcg 1X ONCE IART Last administered on at 15:45; Start 06/04/18 at 15:45; Stop 06/04/18 at 17:46; Status DC Heparin Sodium/ Sodium Chloride (HEPARIN for ARTERIAL LINE FLUSH) 1,000 unit 1X ONCE IART Last administered on 06/04/18at 15:41; Start 06/04/18 at 15:45; Stop 06/04/18 at 17:46; Status DC Heparin Sodium/ Sodium Chloride (HEPARIN for ARTERIAL LINE FLUSH) 1,000 unit 1X ONCE IART Last administered on 06/04/18at 15:41; Start 06/04/18 at 15:45; Stop 06/04/18 at 17:46; Status DC Midazolam HCl (Versed) 2 mg 1X ONCE IV Last administered on 06/04/18at 15:45; Start 06/04/18 at 15:45; Stop 06/04/18 at 15:46; Status DC Fentanyl Citrate (Fentanyl 2ml Vial) 100 mcg 1X ONCE IV Last administered on 06/04/18at 15:45; Start 06/04/18 at 15:45; Stop 06/04/18 at 15:46; Status DC Iodixanol (Visipaque 320) 100 ml 1X ONCE IART Last administered on 06/04/18at 15:45; Start 06/04/18 at 15:45; Stop 06/04/18 at 15:46; Status DC Bivalirudin (Angiomax) 250 mg 1X ONCE IV Last administered on 06/04/18at 15:41 ; Start 06/04/18 at 15:45; Stop 06/04/18 at 15:46; Status DC Lidocaine HCl (Xylocaine 1% Pf 30ml Vial) 30 ml 1X ONCE INJ Last administered on 06/04/18at 15:45; Start 06/04/18 at 15:45; Stop 06/04/18 at 15:46; Status DC Info (CONTRAST GIVEN -- Rx MONITORING) 1 each PRN DAILY PRN MC SEE COMMENTS; Start 06/04/18 at 15:45; Stop 06/06/18 at 15:44; Status DC Clopidogrel Bisulfate (Plavix) 600 mg 1X ONCE PO Last administered on at 16:00; Start 06/04/18 at 16:00; Stop 06/04/18 at 16:01; Status DC Sodium Chloride (Normal Saline Flush) 3 ml QSHIFT PRN IV AFTER MEDS AND BLOOD DRAWS; Start 06/04/18 at 16:15 Sodium Chloride 1,000 ml @ 75 mls/hr [id number] IV Last administered on at 11:16; Start 06/04/18 at 16:14 Aspirin (Ecotrin) 325 mg DAILYWBKFT PO Last administered on 06/06/18at 08:27; Start 06/05/18 at 08:00 Clopidogrel Bisulfate (Plavix) 75 mg DAILYWBKFT PO Last administered on at 08:27; Start 06/05/18 at 08:00 Carvedilol (Coreg) 6.25 mg BIDWMEALS PO Last administered on 06/06/18at 17:54; Start 06/04/18 at 17:00 Lisinopril (Prinivil) 5 mg DAILY PO Last administered on 06/06/18at 08:26; Start 06/05/18 at 09:00 Acetaminophen (Tylenol) 650 mg PRN Q6HRS PRN PO MILD PAIN / TEMP; Start at 16:15 Nitroglycerin (Nitrostat) 0.4 mg PRN Q5MIN PRN SL CHEST PAIN; Start 06/04/18 at 16:15; Stop 06/04/18 at 17:46; Status DC Ondansetron HCl (Zofran) 4 mg STK-MED ONCE .ROUTE ; Start 06/04/18 at 16:15; Stop 06/04/18 at 16:16; Status DC Metoprolol Tartrate (Lopressor Vial) 10 mg Q8HRS IVP Last administered on 06/04at 18:08; Start 06/04/18 at 18:00; Stop 06/04/18 at 20:10; Status DC Prochlorperazine Edisylate (Compazine) 10 mg PRN Q6HRS PRN IM NAUSEA/VOMITING Last administered on 06/04/18at 18:07; Start 06/04/18 at 17:30; Stop 06/04/18 at 19:25; Status DC Non-Formulary Medication (Fluticasone/ Salmeterol (Advair 100-50 Diskus)) 1 inh BID IH ; Start 06/04/18 at 21:00; Status UNV Nitroglycerin/ Dextrose 250 ml @ 1.5 mls/hr CONT PRN IV SEE I/O RECORD Last administered on 06/06/18at 07:10; Start 06/04/18 at 17:45 Albuterol Sulfate (Ventolin Neb Soln) 2.5 mg Q6HRS NEB ; Start 06/04/18 at 18: 00; Status Cancel Albuterol Sulfate (Ventolin Neb Soln) 2.5 mg Q6HRS NEB Last administered on at 12:00; Start 06/04/18 at 18:00 Budesonide (Pulmicort) 0.5 mg RTBID NEB Last administered on 06/06/18at 06:53; Start 06/04/18 at 20:00 Prochlorperazine Edisylate (Compazine) 10 mg PRN Q6HRS PRN IV NAUSEA/VOMITING, 2ND CHOICE Last administered on 06/05/18at 05:54; Start 06/04/18 at 19:30 Metoprolol Tartrate (Lopressor Vial) 10 mg Q8HRS IVP Last administered on 06/06at 05:57; Start 06/05/18 at 00:00; Stop 06/06/18 at 18:00; Status DC Albuterol Sulfate (Ventolin Neb Soln) 2.5 mg PRN Q4HRS PRN NEB SHORTNESS OF BREATH Last administered on 06/05/18at 03:39; Start 06/05/18 at 03:30 Ceftriaxone Sodium 1 gm/ Dextrose 50 ml @ 100 mls/hr Q24H IV ; Start 06/05/18 at 11:45; Status UNV Ceftriaxone Sodium (Rocephin) 1 gm Q24H IVP Last administered on 06/06/18at 12: 48; Start 06/05/18 at 12:00 Iohexol (Omnipaque 300 Mg/ml) 100 ml STK-MED ONCE .ROUTE ; Start 06/06/18 at 12 :47; Stop 06/06/18 at 12:48; Status DC Heparin Sodium/ Sodium Chloride 500 ml @ As Directed STK-MED ONCE .ROUTE ; Start 06/06/18 at 12:47; Stop 06/06/18 at 12:48; Status DC Lidocaine HCl (Xylocaine-Mpf 1% 2ml Vial) 2 ml STK-MED ONCE .ROUTE ; Start at 12:48; Stop 06/06/18 at 12:49; Status DC Fentanyl Citrate (Fentanyl 2ml Vial) 100 mcg STK-MED ONCE .ROUTE ; Start at 13:42; Stop 06/06/18 at 13:43; Status DC Midazolam HCl (Versed) 2 mg STK-MED ONCE .ROUTE ; Start 06/06/18 at 13:42; Stop 06/06/18 at 13:43; Status DC Heparin Sodium (Porcine) (Heparin Sodium) 10,000 unit STK-MED ONCE .ROUTE ; Start 06/06/18 at 13:42; Stop 06/06/18 at 13:43; Status DC Verapamil HCl (Verapamil) 5 mg STK-MED ONCE .ROUTE ; Start 06/06/18 at 13:42; Stop 06/06/18 at 13:43; Status DC Nitroglycerin (Nitroglycerin) 200 mcg STK-MED ONCE .ROUTE ; Start 06/06/18 at 13:42; Stop 06/06/18 at 13:43; Status DC Nitroglycerin (Nitroglycerin) 200 mcg 1X ONCE IART Last administered on at 14:12; Start 06/06/18 at 14:00; Stop 06/06/18 at 14:11; Status DC Verapamil HCl (Verapamil) 2.5 mg 1X ONCE IART Last administered on 06/06/18at 14:13; Start 06/06/18 at 14:00; Stop 06/06/18 at 14:11; Status DC Heparin Sodium (Porcine) (Heparin Sodium) 2,500 unit 1X ONCE IART Last administered on 06/06/18at 14:15; Start 06/06/18 at 14:00; Stop 06/06/18 at 14 :11; Status DC Heparin Sodium/ Sodium Chloride (HEPARIN for ARTERIAL LINE FLUSH) 1,000 unit 1X ONCE IART Last administered on 06/06/18at 14:12; Start 06/06/18 at 14:00; Stop 06/06/18 at 14:11; Status DC Midazolam HCl (Versed) 2 mg 1X ONCE IV Last administered on 06/06/18at 14:13; Start 06/06/18 at 14:00; Stop 06/06/18 at 14:11; Status DC Fentanyl Citrate (Fentanyl 2ml Vial) 50 mcg 1X ONCE IV Last administered on at 14:13; Start 06/06/18 at 14:00; Stop 06/06/18 at 14:11; Status DC Iohexol (Omnipaque 300 Mg/ml) 47 ml 1X ONCE IART Last administered on at 14:12; Start 06/06/18 at 14:00; Stop 06/06/18 at 14:11; Status DC Lidocaine HCl (Xylocaine-Mpf 1% 2ml Vial) 1 ml 1X ONCE INJ Last administered on 06/06/18at 14:13; Start 06/06/18 at 14:00; Stop 06/06/18 at 14:11; Status DC Active Scripts Active Reported Advair 100-50 Diskus (Fluticasone/Salmeterol) 1 Each Disk.w.dev 1 Inh IH BID Albuterol Sulfate Hfa Inhaler (Albuterol Sulfate) 8.5 Gm Hfa.aer.ad 2 Puff INH Q4HRS PRN Lisinopril 2.5 Mg Tablet 2.5 Mg PO DAILY Diazepam 10 Mg Tablet 10 Mg PO DAILY PRN Vital Signs Vital Signs Date Time Temp Pulse Resp B/P (MAP) Pulse Ox O2 Delivery O2 Flow Rate FiO2 06/06/18 17:54 87 129/74 06/06/18 16:00 98.4 19 94 Room Air 98.4 06/06/18 14:13 2.0 Labs Laboratory Tests Test 06/04/18 20:43 06/05/18 05:10 06/06/18 04:45 Troponin I Quantitative 110.224 ng/mL (0.000-0.055) 62.557 ng/mL (0.000-0.055) White Blood Count 25.0 x10^3/uL (4.0-11.0) 16.1 x10^3/uL (4.0-11.0) Red Blood Count 4.68 x10^6/uL (3.50-5.40) 4.19 x10^6/uL (3.50-5.40) Hemoglobin 12.3 g/dL (12.0-15.5) 11.2 g/dL (12.0-15.5) Hematocrit 37.6 % (36.0-47.0) 34.0 % (36.0-47.0) Mean Corpuscular Volume 80 fL (79-100) 81 fL (79-100) Mean Corpuscular Hemoglobin 26 pg (25-35) 27 pg (25-35) Mean Corpuscular Hemoglobin Concent 33 g/dL (31-37) 33 g/dL (31-37) Red Cell Distribution Width 18.1 % (11.5-14.5) 18.0 % (11.5-14.5) Platelet Count 393 x10^3/uL (140-400) 331 x10^3/uL (140-400) Neutrophils (%) (Auto) 84 % (31-73) 74 % (31-73) Lymphocytes (%) (Auto) 11 % (24-48) 18 % (24-48) Monocytes (%) (Auto) 5 % (0-9) 7 % (0-9) Eosinophils (%) (Auto) 0 % (0-3) 0 % (0-3) Basophils (%) (Auto) 1 % (0-3) 1 % (0-3) Neutrophils # (Auto) 21.0 x10^3uL (1.8-7.7) 12.0 x10^3uL (1.8-7.7) Lymphocytes # (Auto) 2.6 x10^3/uL (1.0-4.8) 3.0 x10^3/uL (1.0-4.8) Monocytes # (Auto) 1.2 x10^3/uL (0.0-1.1) 1.0 x10^3/uL (0.0-1.1) Eosinophils # (Auto) 0.0 x10^3/uL (0.0-0.7) 0.0 x10^3/uL (0.0-0.7) Basophils # (Auto) 0.1 x10^3/uL (0.0-0.2) 0.1 x10^3/uL (0.0-0.2) Sodium Level 137 mmol/L (136-145) 134 mmol/L (136-145) Potassium Level 4.8 mmol/L (3.5-5.1) 5.0 mmol/L (3.5-5.1) Chloride Level 101 mmol/L (98-107) 99 mmol/L (98-107) Carbon Dioxide Level 24 mmol/L (21-32) 26 mmol/L (21-32) Anion Gap 12 (6-14) 9 (6-14) Blood Urea Nitrogen 14 mg/dL (7-20) 11 mg/dL (7-20) Creatinine 0.8 mg/dL (0.6-1.0) 0.7 mg/dL (0.6-1.0) Estimated GFR (Cockcroft-Gault) 76.2 88.9 Glucose Level 119 mg/dL (70-99) 100 mg/dL (70-99) Calcium Level 9.0 mg/dL (8.5-10.1) 8.5 mg/dL (8.5-10.1) Magnesium Level 1.9 mg/dL (1.8-2.4) Laboratory Tests Test 06/06/18 04:45 White Blood Count 16.1 x10^3/uL (4.0-11.0) Red Blood Count 4.19 x10^6/uL (3.50-5.40) Hemoglobin 11.2 g/dL (12.0-15.5) Hematocrit 34.0 % (36.0-47.0) Mean Corpuscular Volume 81 fL (79-100) Mean Corpuscular Hemoglobin 27 pg (25-35) Mean Corpuscular Hemoglobin Concent 33 g/dL (31-37) Red Cell Distribution Width 18.0 % (11.5-14.5) Platelet Count 331 x10^3/uL (140-400) Neutrophils (%) (Auto) 74 % (31-73) Lymphocytes (%) (Auto) 18 % (24-48) Monocytes (%) (Auto) 7 % (0-9) Eosinophils (%) (Auto) 0 % (0-3) Basophils (%) (Auto) 1 % (0-3) Neutrophils # (Auto) 12.0 x10^3uL (1.8-7.7) Lymphocytes # (Auto) 3.0 x10^3/uL (1.0-4.8) Monocytes # (Auto) 1.0 x10^3/uL (0.0-1.1) Eosinophils # (Auto) 0.0 x10^3/uL (0.0-0.7) Basophils # (Auto) 0.1 x10^3/uL (0.0-0.2) Sodium Level 134 mmol/L (136-145) Potassium Level 5.0 mmol/L (3.5-5.1) Chloride Level 99 mmol/L (98-107) Carbon Dioxide Level 26 mmol/L (21-32) Anion Gap 9 (6-14) Blood Urea Nitrogen 11 mg/dL (7-20) Creatinine 0.7 mg/dL (0.6-1.0) Estimated GFR (Cockcroft-Gault) 88.9 Glucose Level 100 mg/dL (70-99) Calcium Level 8.5 mg/dL (8.5-10.1) Magnesium Level 1.9 mg/dL (1.8-2.4) Allergies Allergies Coded Allergies Type Severity Reaction Last Updated Verified No Known Drug Allergies 02/15/14 No Disposition/Orders: D/C to Home LUANNE LARA MD Jun 06, 2018 18:25
--- NOTE | 2018-06-06 18:26 | DISCH ---
DISCHARGE INSTRUCTIONS Condition on Discharge Condition on Discharge: Stable Activity After Discharge Activity Instructions for Disc: Activity as tolerated Bathing Instructions: Shower-keep dressing dry Lifting Instructions after Dis: No heavy lifting, No pulling or pushing Driving Instructions after Dis: Do not drive Diet after Discharge Diet after Discharge: Cardiac Contacting the DR. after DC Call your doctor for: If your condition worsens LUANNE LARA MD Jun 06, 2018 18:26
[2018-06-06] MEDS ORDERED: CLOP75TA PO (18:29)
[2018-06-06] MEDS ORDERED: LISI-338 PO (18:29)
[2018-06-06] MEDS ORDERED: CARV6.252 PO (18:29)
== END 2018-06-06 19:30 | disposition home or self-care (01) | DRG 250 ==
LOC: ER 14:08 → 1 WEST ICU 14:35
PROVIDERS: ADMIT Internal Medicine; ATTEND Internal Medicine
PROC: 02703ZZ Dilation of Coronary Artery, One Artery, Percutaneous Approach (ICD-10-PCS; principal; 2018-06-04)
PROC: 4A023N7 Measurement of Cardiac Sampling and Pressure, Left Heart, Percutaneous Approach (ICD-10-PCS; 2018-06-04)
PROC: B2151ZZ Fluoroscopy of Left Heart using Low Osmolar Contrast (ICD-10-PCS; 2018-06-04)
PROC: B2111ZZ Fluoroscopy of Multiple Coronary Arteries using Low Osmolar Contrast (ICD-10-PCS; 2018-06-04)
PROC: 4A023N7 Measurement of Cardiac Sampling and Pressure, Left Heart, Percutaneous Approach (ICD-10-PCS; 2018-06-06)
PROC: B2111ZZ Fluoroscopy of Multiple Coronary Arteries using Low Osmolar Contrast (ICD-10-PCS; 2018-06-06)
DX: I21.19 ST elevation (STEMI) myocardial infarction involving other coronary artery of inferior wall (principal); I50.43 Acute on chronic combined systolic (congestive) and diastolic (congestive) heart failure; I11.0 Hypertensive heart disease with heart failure; E78.5 Hyperlipidemia, unspecified; I25.111 Atherosclerotic heart disease of native coronary artery with angina pectoris with documented spasm; J44.9 Chronic obstructive pulmonary disease, unspecified; F41.9 Anxiety disorder, unspecified; D72.829 Elevated white blood cell count, unspecified; F17.210 Nicotine dependence, cigarettes, uncomplicated; K90.0 Celiac disease; Z90.49 Acquired absence of other specified parts of digestive tract; Z79.899 Other long term (current) drug therapy; Z87.01 Personal history of pneumonia (recurrent); I25.2 Old myocardial infarction; Z71.6 Tobacco abuse counseling; Z82.49 Family history of ischemic heart disease and other diseases of the circulatory system
CPT/HCPCS: 36415; 71045; 80047; 80048; 80053; 80061; 83735; 84484; 84703; 85007; 85025; 85610; 87641; 92941; 93005; 93458; 94640; 94760; 96374; 96375; 99152; 99153; C1713; C1725; C1769; C1887; C1892; G0269; J0583; J0696; J0780; J1644; J2250; J2405; J3010; J3490; J7030; J7613; J7626; Q9967; 99285-25

== ENCOUNTER 2018-06-08 13:30 | Inpatient (IN) | payer OTHER ==
[~2018-06-08] VITALS: Ht 170.2 cm; Wt 46.5 kg
[~2018-06-08 13:30] MED LIST changes: +CARV6.252 PO; +CLOP75TA PO; +FLUT1DIS IH; +LISI-338 PO
[2018-06-08] MEDS ORDERED: ASPIRIN CHEWABLE 81 MG TABLET. PO ONE (14:00)
--- NOTE | 2018-06-08 14:16 | RAD ---
PORTABLE CHEST 1V History: Chest pain for 4 days worse today Comparison: 06/04/2018 Findings: Single view of the chest is submitted. There is again interstitial opacity bilaterally greater on the right, not significantly changed. There is no significant pleural fluid, pneumothorax, new lobar consolidation. Heart size is stable, within normal limits. Impression: 1. There is again interstitial opacity greater on the right which may be due to interstitial edema or infiltrate. Electronically signed by: Carlos Dobbs MD (06/08/2018 2:13 PM) [id number]
--- NOTE | 2018-06-08 14:23 | PHYS DOC ---
Past Medical History Past Medical History: COPD, Hypertension, Lung Disease Additional Past Medical Histor: celiac disease Past Surgical History: Tonsillectomy, Other Additional Past Surgical Histo: eye surgery, knee surgery, hemmorhoidectomy Alcohol Use: None Drug Use: None Adult General Chief Complaint Chief Complaint: CHEST PAIN HPI HPI Patient is a 47 year old female presents with chest pain. She had to the last 5 days for coronary artery disease probable vasospasm she said she felt good on Tuesday she woke up today with chest pressure and then she had a sort of a poking sensation for the last couple of hours she has mild to moderate shortness of breath no fever that she knows of she feels worse when she lies flat so she decided to come in for evaluation. Of note she did have an inferior wall STEMI she had significant coronary disease as well as vasospasm. She has not yet tried anything for relief she has been taking her medications at home. Symptoms are nonradiating Review of Systems Review of Systems Constitutional: Denies fever or chills [] Eyes: Denies change in visual acuity, redness, or eye pain [] GI: Denies abdominal pain, nausea, vomiting, bloody stools or diarrhea [] : Denies dysuria or hematuria [] Neurologic: Denies headache, focal weakness or sensory changes [] Endocrine: Denies polyuria or polydipsia [] All other systems were reviewed and found to be within normal limits, except as documented in this note. Current Medications Current Medications Current Medications Medications (Trade) Dose Ordered Sig/Kwesi Start Time Stop Time Status Last Admin Dose Admin Aspirin (Children'S Aspirin) 324 mg 1X ONCE 06/08/18 14:00 06/08/18 14:01 DC Fentanyl Citrate (Fentanyl 2ml Vial) 50 mcg 1X ONCE 06/08/18 14:30 06/08/18 14:31 DC Allergies Allergies Allergies Coded Allergies Type Severity Reaction Last Updated Verified No Known Drug Allergies 02/15/14 No Physical Exam Physical Exam Constitutional: Well developed, mildly ill-appearing cachectic HENT: Normocephalic, atraumatic, bilateral external ears normal, oropharynx moist, no oral exudates, nose normal. [] Eyes: PERRLA, EOMI, conjunctiva normal, no discharge. [] Neck: Normal range of motion, no tenderness, supple, no stridor. [] Cardiovascular:Heart rate regular rhythm, 2/6 systolic ejection murmur Lungs & Thorax: Faint crackles bilateral lung bases Abdomen: Bowel sounds normal, soft, no tenderness, no masses, no pulsatile masses. [] Skin: Warm and dry but patient is somewhat pale Back: No tenderness, no CVA tenderness. [] Extremities: No tenderness, no cyanosis, no clubbing, ROM intact, no edema. [] Neurologic: Alert and oriented X 3, normal motor function, normal sensory function, no focal deficits noted. [] Psychologic: Affect normal, judgement normal, mood normal. [] Current Patient Data Vital Signs Vital Signs Date Time Temp Pulse Resp B/P (MAP) Pulse Ox O2 Delivery O2 Flow Rate FiO2 06/08/18 13:54 98.3 77 20 106/67 (80) 96 Room Air 98.3 Lab Values Laboratory Tests Test 06/08/18 14:30 06/08/18 15:09 White Blood Count 11.6 x10^3/uL (4.0-11.0) H Red Blood Count 4.61 x10^6/uL (3.50-5.40) Hemoglobin 12.3 g/dL (12.0-15.5) Hematocrit 37.0 % (36.0-47.0) Mean Corpuscular Volume 80 fL (79-100) Mean Corpuscular Hemoglobin 27 pg (25-35) Mean Corpuscular Hemoglobin Concent 33 g/dL (31-37) Red Cell Distribution Width 18.2 % (11.5-14.5) H Platelet Count 361 x10^3/uL (140-400) Neutrophils (%) (Auto) 72 % (31-73) Lymphocytes (%) (Auto) 20 % (24-48) L Monocytes (%) (Auto) 8 % (0-9) Eosinophils (%) (Auto) 1 % (0-3) Basophils (%) (Auto) 1 % (0-3) Neutrophils # (Auto) 8.3 x10^3uL (1.8-7.7) H Lymphocytes # (Auto) 2.3 x10^3/uL (1.0-4.8) Monocytes # (Auto) 0.9 x10^3/uL (0.0-1.1) Eosinophils # (Auto) 0.1 x10^3/uL (0.0-0.7) Basophils # (Auto) 0.1 x10^3/uL (0.0-0.2) Prothrombin Time 13.6 SEC (11.7-14.0) Prothrombin Time INR 1.1 (0.8-1.1) Sodium Level 140 mmol/L (136-145) Potassium Level 4.4 mmol/L (3.5-5.1) Chloride Level 103 mmol/L (98-107) Carbon Dioxide Level 27 mmol/L (21-32) Anion Gap 10 (6-14) Blood Urea Nitrogen 13 mg/dL (7-20) Creatinine 0.7 mg/dL (0.6-1.0) Estimated GFR (Cockcroft-Gault) 88.9 BUN/Creatinine Ratio 19 (6-20) Glucose Level 96 mg/dL (70-99) Calcium Level 8.6 mg/dL (8.5-10.1) Total Bilirubin 0.2 mg/dL (0.2-1.0) Aspartate Amino Transferase (AST) 32 U/L (15-37) Alanine Aminotransferase (ALT) 26 U/L (14-59) Alkaline Phosphatase 59 U/L (46-116) Troponin I Quantitative 10.086 ng/mL (0.000-0.055) ZV-Skb-[id number]-Type Natriuretic Peptide 5769 pg/mL (0-124) H Total Protein 5.5 g/dL (6.4-8.2) L Albumin 2.8 g/dL (3.4-5.0) L Albumin/Globulin Ratio 1.0 (1.0-1.7) Laboratory Tests 06/08/18 14:30 Laboratory Tests 06/08/18 15:09 EKG EKG []Blood pressures in the 120s EKG does show a normal sinus rhythm there is a evidence of ST elevation in leads 23 and aVF as well as significant T-wave inversions in the lateral leads. I compared this to to old EKGs including June 05, 2018 as well as June 04, 2018. The ST segments today look much better than they did on those dates. I also reviewed these images with Dr. Solis who agrees that the ST segments are improving. In summary this EKG does technically probably meet criteria for ST elevation CO however in light of her recent clinical course Dr. Solis and I have agreed to watch CO troponins and treat her pain prior to any specific acute intervention. Radiology/Procedures Radiology/Procedures [] Impressions: limits. Impression: 1. There is again interstitial opacity greater on the right which may be due to interstitial edema or infiltrate. Electronically signed by: Alyssa Ramos MD (06/08/2018 2:13 PM) [facility] DICTATED and SIGNED BY: ALYSSA RAMOS MD DATE: 06/08/18 1412 Course & Med Decision Making Course & Med Decision Making Pertinent Labs and Imaging studies reviewed. (See chart for details) []47 over female with a recent 2 cardiac catheters with coronary artery disease and vasospasm status post angioplasty present with recurrent chest discomfort. Patient is a history of anxiety. Patient may have mild pulmonary edema on x-ray saturating well blood pressures in the 1 teens systolic in the emergency room patient was given some fentanyl as well as aspirin. I consulted over the telephone with Dr. Solis was reviewed the EKGs and recommend serial troponins and possible re-catheter if they were to go up as of now the troponin is down to attend from a 60 a few days back. Patient is feeling somewhat better in the emergency room with the appropriate above treatment. This point, think other diagnoses are less likely given her recent catheter with significant coronary disease. Discussed with Dr. ORR FOR ADMIT. Charisse Disclaimer Dragon Disclaimer This electronic medical record was generated, in whole or in part, using a voice recognition dictation system. Departure Departure Impression: Primary Impression: Chest pain Disposition: ADMITTED INPATIENT Condition: STABLE Referrals: SANDRA FULLER MD (PCP) AMANDA BURGOS MD Jun 08, 2018 14:23
--- NOTE | 2018-06-08 14:25 | EKG ---
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
[2018-06-08] MEDS ORDERED: fentaNYL PF VIAL 100 MCG/2 ML VIAL IV ONE (14:30)
[2018-06-08 14:55] LABS: BASO # 0.1 x10^3/uL (0.0-0.2); BASO % 1 % (0-3); EOS # 0.1 x10^3/uL (0.0-0.7); EOS % 1 % (0-3); HEMOGLOBIN 12.3 g/dL (12.0-15.5); LYMPH # 2.3 x10^3/uL (1.0-4.8); LYMPH % 20 % (24-48); MEAN CORPUSCULAR HEMOGLOBIN 27 pg (25-35); MEAN CORPUSCULAR HGB CONC 33 g/dL (31-37); MEAN CORPUSCULAR VOLUME 80 fL (79-100); MONO # 0.9 x10^3/uL (0.0-1.1); MONO % 8 % (0-9); NEUT # 8.3 x10^3uL (1.8-7.7); NEUT % 72 % (31-73); PLATELET COUNT 361 x10^3/uL (140-400); RED BLOOD COUNT 4.61 x10^6/uL (3.50-5.40); RED CELL DISTRIBUTION WIDTH 18.2 % (11.5-14.5); WHITE BLOOD COUNT 11.6 x10^3/uL (4.0-11.0)
[2018-06-08 15:22] LABS: PROTHROMBIN TIME PATIENT 13.6 SEC (11.7-14.0)
[2018-06-08 15:26] LABS: CALCIUM 8.6 mg/dL (8.5-10.1); CREATININE 0.7 mg/dL (0.6-1.0); GFR 88.9; POTASSIUM 4.4 mmol/L (3.5-5.1)
[2018-06-08 15:34] LABS: ALBUMIN 2.8 g/dL (3.4-5.0); TOTAL BILIRUBIN 0.2 mg/dL (0.2-1.0); TOTAL PROTEIN 5.5 g/dL (6.4-8.2)
--- NOTE | 2018-06-08 16:03 | PDOC1 ---
History and Physical Date of Admission Date of Admission DATE: 06/08/18 TIME: 16:03 Identification/Chief Complaint Chief Complaint Chest Pain Source Source: Chart review, Patient History of Present Illness History of Present Illness 47 yo female w/ PMHx HTN, smoker, CAD with recent cardiac catheterization with angioplasty who p/w recurrent chest pain. Awoke this morning feeling short of breath and fatigued. She notes a non-productive cough. She has missed no home meds. This morning, patient woke up feeling fatigued. Took morning medications and breathing treatment and went back to bed. Initially woke back up feeling better. Went into the bathroom ad began coughing. She sat down, felt diaphoretic. [place] nauseated as well, did not eat at all today. Took BP; 150/97. Due to symptoms and recent STEMI, patient and family was concerned and decided to come to the ED for further evaluation and treatment. Of note, patient has not smoked since Tuesday and has been extremely anxious. Patient was discharge home yesterday with ASA, Plavix, Coreg, and lisinopril. Reports compliance with medications, no missed doses. Treated on 06/04/18 for Acute inferior wall ST elevation myocardial infarction and acute on chronic combined systolic and diastolic heart failure. Posterior descending branch of right coronary artery was successfully angioplastied w/o stenting and LVEF of 25%. Follow-up angiography 06/06/18 revealed patent previously angioplastied posterior descending branch of right coronary artery and improvement. In ED was noted with STEMI EKG findings: ST elevation in leads 23 and aVF as well as significant T-wave inversions in the lateral leads and troponin of 10. Past Medical History Cardiovascular: HTN Pulmonary: Asthma, Bronchitis, COPD Past Surgical History Past Surgical History: No pertinent history Family History Family History: Heart Disease, High Cholestrol, Hypertension Social History ALCOHOL: occassional Drugs: None Current Medications Current Medications Current Medications Aspirin (Children'S Aspirin) 324 mg 1X ONCE PO ; Start 06/08/18 at 14:00; Stop 06/08/18 at 14:01; Status DC Fentanyl Citrate (Fentanyl 2ml Vial) 50 mcg 1X ONCE IV Last administered on at 15:50; Start 06/08/18 at 14:30; Stop 06/08/18 at 14:31; Status DC Active Scripts Active Clopidogrel (Clopidogrel Bisulfate) 75 Mg Tablet 75 Mg PO DAILYWBKFT 30 Days Carvedilol 6.25 Mg Tablet 6.25 Mg PO BIDWMEALS 30 Days Lisinopril 5 Mg Tablet 5 Mg PO DAILY 30 Days Reported Advair 100-50 Diskus (Fluticasone/Salmeterol) 1 Each Disk.w.dev 1 Inh IH BID Albuterol Sulfate Hfa Inhaler (Albuterol Sulfate) 8.5 Gm Hfa.aer.ad 2 Puff INH Q4HRS PRN Diazepam 10 Mg Tablet 10 Mg PO DAILY PRN Allergies Allergies: Coded Allergies: No Known Drug Allergies (Unverified , 02/15/14) ROS General: YES: Fatigue, Malaise; No: Chills, Night Sweats, Appetite, Other PSYCHOLOGICAL ROS: YES: Anxiety; No: Behavioral Disorder, Concentration difficultie, Decreased libido, Depression, Disorientation, Hallucinations, Hostility, Irritablity, Memory difficulties, Mood Swings, Obsessive thoughts, Physical abuse, Sexual abuse, Sleep disturbances, Suicidal ideation, Other Eyes: No Blurry vision, No Decreased vision, No Double vision, No Dry eyes, No Excessive tearing, No Eye Pain, No Itchy Eyes, No Loss of vision, No Photophobia , No Scotomata, No Uses contacts, No Uses glasses, No Other HEENT: No: Heacaches, Visual Changes, Hearing change, Nasal congestion, Nasal discharge, Oral lesions, Sinus pain, Sore Throat, Epistaxis, Sneezing, Snoring, Tinnitus, Vertigo, Vocal changes, Other ALLERGY AND IMMUNOLOGY: No: Hives, Insect Bite Sensitivity, Itchy/Watery Eyes, Nasal Congestion, Post Nasal Drip, Seasonal Allergies, Other Hematological and Lymphatic: YES: Pallor; No: Bleeding Problems, Blood Clots, Blood Transfusions, Brusing, Night Sweats , Swollen Lymph Nodes, Other ENDOCRINE: No: Breast Changes, Galactorrhea, Hair Pattern Changes, Hot Flashes , Malaise/lethargy, Mood Swings, Palpitations, Polydipsia/polyuria, Skin Changes , Temperature Intolerance, Unexpected Weight Changes, Other Breast: No New/Changing Breast Lumps, No Nipple changes, No Nipple discharge, No Other Respiratory: YES: Cough, Shortness of breath; No: Hemoptysis, Orthopnea, Pleuritic Pain, SOB with excertion, Sputum Changes , Stridor, Tachypnea, Wheezing, Other Cardiovascular: yes Chest Pain, yes Lt Headedness; No Palpitations, No Orthopnea, No Paroxysmal Noc. Dyspnea, No Edema, No Other Gastrointestinal: Yes Nausea; No Vomiting, No Abdominal Pain, No Diarrhea, No Constipation, No Melena, No Hematochezia, No Other Genitourinary: No Dysuria, No Frequency, No Incontinence, No Hematuria, No Retention, No Discharge, No Urgency, No Pain, No Flank Pain, No Other, No , No , No , No , No , No , No Musculoskeletal: No Gait Disturbance, No Joint Pain, No Joint Stiffness, No Joint Swelling, No Muscle Pain, No Muscular Weakness, No Pain In:, No Swelling In:, No Other Neurological: No Behavorial Changes, No Bowel/Bladder ControlChng, No Confusion , No Dizziness, No Gait Disturbance, No Headaches, No Impaired Coord/balance, No Memory Loss, No Numbness/Tingling, No Seizures, No Speech Problems, No Tremors, No Visual Changes, No Weakness, No Other Skin: No Dry Skin, No Eczema, No Hair Changes, No Lumps, No Mole Changes, No Mottling, No Nail Changes, No Pruritus, No Rash, No Skin Lesion Changes, No Other, No Acne Physical Exam General: Alert, Oriented X3, Cooperative, No acute distress HEENT: Atraumatic, PERRLA, EOMI, Mucous membr. moist/pink Lungs: Other (Scattered wheezing) Heart: S1S2, RRR Abdomen: Normal bowel sounds, Soft, No tenderness, No hepatosplenomegaly, No masses Extremities: No clubbing, No cyanosis, No edema, Normal pulses, No tenderness/ swelling Skin: No rashes, No breakdown, No significant lesion Neuro: Normal gait, Normal speech, Strength at 5/5 X4 ext, Normal tone, Sensation intact, Cranial nerves 3-12 NL, Reflexes 2+ Psych/Mental Status: Mental status NL, Mood NL Vitals Vitals Vital Signs Date Time Temp Pulse Resp B/P (MAP) Pulse Ox O2 Delivery O2 Flow Rate FiO2 06/08/18 15:51 79 20 110/72 (85) 99 06/08/18 15:50 Room Air 06/08/18 13:54 98.3 98.3 Labs Labs Laboratory Tests Test 06/08/18 14:30 06/08/18 15:09 White Blood Count 11.6 x10^3/uL (4.0-11.0) Red Blood Count 4.61 x10^6/uL (3.50-5.40) Hemoglobin 12.3 g/dL (12.0-15.5) Hematocrit 37.0 % (36.0-47.0) Mean Corpuscular Volume 80 fL (79-100) Mean Corpuscular Hemoglobin 27 pg (25-35) Mean Corpuscular Hemoglobin Concent 33 g/dL (31-37) Red Cell Distribution Width 18.2 % (11.5-14.5) Platelet Count 361 x10^3/uL (140-400) Neutrophils (%) (Auto) 72 % (31-73) Lymphocytes (%) (Auto) 20 % (24-48) Monocytes (%) (Auto) 8 % (0-9) Eosinophils (%) (Auto) 1 % (0-3) Basophils (%) (Auto) 1 % (0-3) Neutrophils # (Auto) 8.3 x10^3uL (1.8-7.7) Lymphocytes # (Auto) 2.3 x10^3/uL (1.0-4.8) Monocytes # (Auto) 0.9 x10^3/uL (0.0-1.1) Eosinophils # (Auto) 0.1 x10^3/uL (0.0-0.7) Basophils # (Auto) 0.1 x10^3/uL (0.0-0.2) Prothrombin Time 13.6 SEC (11.7-14.0) Prothromb Time International Ratio 1.1 (0.8-1.1) Sodium Level 140 mmol/L (136-145) Potassium Level 4.4 mmol/L (3.5-5.1) Chloride Level 103 mmol/L (98-107) Carbon Dioxide Level 27 mmol/L (21-32) Anion Gap 10 (6-14) Blood Urea Nitrogen 13 mg/dL (7-20) Creatinine 0.7 mg/dL (0.6-1.0) Estimated GFR (Cockcroft-Gault) 88.9 BUN/Creatinine Ratio 19 (6-20) Glucose Level 96 mg/dL (70-99) Calcium Level 8.6 mg/dL (8.5-10.1) Total Bilirubin 0.2 mg/dL (0.2-1.0) Aspartate Amino Transf (AST/SGOT) 32 U/L (15-37) Alanine Aminotransferase (ALT/SGPT) 26 U/L (14-59) Alkaline Phosphatase 59 U/L (46-116) Troponin I Quantitative 10.086 ng/mL (0.000-0.055) HG-Xyh-Z-Type Natriuretic Peptide 5769 pg/mL (0-124) Total Protein 5.5 g/dL (6.4-8.2) Albumin 2.8 g/dL (3.4-5.0) Albumin/Globulin Ratio 1.0 (1.0-1.7) Laboratory Tests Test 06/08/18 14:30 06/08/18 15:09 White Blood Count 11.6 x10^3/uL (4.0-11.0) Red Blood Count 4.61 x10^6/uL (3.50-5.40) Hemoglobin 12.3 g/dL (12.0-15.5) Hematocrit 37.0 % (36.0-47.0) Mean Corpuscular Volume 80 fL (79-100) Mean Corpuscular Hemoglobin 27 pg (25-35) Mean Corpuscular Hemoglobin Concent 33 g/dL (31-37) Red Cell Distribution Width 18.2 % (11.5-14.5) Platelet Count 361 x10^3/uL (140-400) Neutrophils (%) (Auto) 72 % (31-73) Lymphocytes (%) (Auto) 20 % (24-48) Monocytes (%) (Auto) 8 % (0-9) Eosinophils (%) (Auto) 1 % (0-3) Basophils (%) (Auto) 1 % (0-3) Neutrophils # (Auto) 8.3 x10^3uL (1.8-7.7) Lymphocytes # (Auto) 2.3 x10^3/uL (1.0-4.8) Monocytes # (Auto) 0.9 x10^3/uL (0.0-1.1) Eosinophils # (Auto) 0.1 x10^3/uL (0.0-0.7) Basophils # (Auto) 0.1 x10^3/uL (0.0-0.2) Prothrombin Time 13.6 SEC (11.7-14.0) Prothromb Time International Ratio 1.1 (0.8-1.1) Sodium Level 140 mmol/L (136-145) Potassium Level 4.4 mmol/L (3.5-5.1) Chloride Level 103 mmol/L (98-107) Carbon Dioxide Level 27 mmol/L (21-32) Anion Gap 10 (6-14) Blood Urea Nitrogen 13 mg/dL (7-20) Creatinine 0.7 mg/dL (0.6-1.0) Estimated GFR (Cockcroft-Gault) 88.9 BUN/Creatinine Ratio 19 (6-20) Glucose Level 96 mg/dL (70-99) Calcium Level 8.6 mg/dL (8.5-10.1) Total Bilirubin 0.2 mg/dL (0.2-1.0) Aspartate Amino Transf (AST/SGOT) 32 U/L (15-37) Alanine Aminotransferase (ALT/SGPT) 26 U/L (14-59) Alkaline Phosphatase 59 U/L (46-116) Troponin I Quantitative 10.086 ng/mL (0.000-0.055) RJ-Ygm-T-Type Natriuretic Peptide 5769 pg/mL (0-124) Total Protein 5.5 g/dL (6.4-8.2) Albumin 2.8 g/dL (3.4-5.0) Albumin/Globulin Ratio 1.0 (1.0-1.7) Images Images CXR - There is again interstitial opacity greater on the right which may be due to interstitial edema or infiltrate. VTE Prophylaxis Ordered VTE Prophylaxis Devices: Yes VTE Pharmacological Prophylaxi: Yes Assessment/Plan Assessment/Plan Acute inferior STEMI - s/p successful PTCA to the posterior descending branch of right coronary artery 06/04/18. Follow-up cath 06/06/18 with improvement in previously described lesions confirming vasospasms. RCA patent. Troponin now 10. 06/06/18 troponin was 62 down from peak of 110 Combined chronic diastolic and systolic HF with EF 25% - uncertain degree of compensation today, seems euvolemic Cardiomyopathy - LVEF 25% on angiogram. Consult cardiology, echo. Likely is Takotsubo Hypertension - controlled, will monitor COPD - will add nebulizers, offered nicotine patch, she states she will request this Leukocytosis - with R>L infiltrate vs edema on CXR this is unlikely to be a pneumonia and is all likely related to her recent IL and cardiomyopathy. Will monitor Anxiety - likely related to her recent IL, will add low dose lorazepam FEN - Cardiac diet PPX - heparin FULL CODE Inpatient likely for 2 midnights for cardiac recovery KIMBERLY ORR MD Jun 08, 2018 16:03
--- NOTE | 2018-06-08 16:57 | PDOC ---
TAYLER KRUSE DIGITAL COMMENTATOR 06/08/18 1657: CARDIO Progress Notes Date and Time Date of Service 06/08/18 Time of Evaluation 5070 Subjective Subjective: No shortness of breath, No Palpitations, Other (slight chest tightness, fatigued) Vitals Vitals Vital Signs Date Time Temp Pulse Resp B/P (MAP) Pulse Ox O2 Delivery O2 Flow Rate FiO2 06/08/18 15:51 79 20 110/72 (85) 99 06/08/18 15:50 Room Air 06/08/18 13:54 98.3 98.3 Weight Weight [ ] Laboratory Labs Laboratory Tests Test 06/08/18 14:30 06/08/18 15:09 White Blood Count 11.6 x10^3/uL (4.0-11.0) Red Blood Count 4.61 x10^6/uL (3.50-5.40) Hemoglobin 12.3 g/dL (12.0-15.5) Hematocrit 37.0 % (36.0-47.0) Mean Corpuscular Volume 80 fL (79-100) Mean Corpuscular Hemoglobin 27 pg (25-35) Mean Corpuscular Hemoglobin Concent 33 g/dL (31-37) Red Cell Distribution Width 18.2 % (11.5-14.5) Platelet Count 361 x10^3/uL (140-400) Neutrophils (%) (Auto) 72 % (31-73) Lymphocytes (%) (Auto) 20 % (24-48) Monocytes (%) (Auto) 8 % (0-9) Eosinophils (%) (Auto) 1 % (0-3) Basophils (%) (Auto) 1 % (0-3) Neutrophils # (Auto) 8.3 x10^3uL (1.8-7.7) Lymphocytes # (Auto) 2.3 x10^3/uL (1.0-4.8) Monocytes # (Auto) 0.9 x10^3/uL (0.0-1.1) Eosinophils # (Auto) 0.1 x10^3/uL (0.0-0.7) Basophils # (Auto) 0.1 x10^3/uL (0.0-0.2) Prothrombin Time 13.6 SEC (11.7-14.0) Prothromb Time International Ratio 1.1 (0.8-1.1) Sodium Level 140 mmol/L (136-145) Potassium Level 4.4 mmol/L (3.5-5.1) Chloride Level 103 mmol/L (98-107) Carbon Dioxide Level 27 mmol/L (21-32) Anion Gap 10 (6-14) Blood Urea Nitrogen 13 mg/dL (7-20) Creatinine 0.7 mg/dL (0.6-1.0) Estimated GFR (Cockcroft-Gault) 88.9 BUN/Creatinine Ratio 19 (6-20) Glucose Level 96 mg/dL (70-99) Calcium Level 8.6 mg/dL (8.5-10.1) Total Bilirubin 0.2 mg/dL (0.2-1.0) Aspartate Amino Transf (AST/SGOT) 32 U/L (15-37) Alanine Aminotransferase (ALT/SGPT) 26 U/L (14-59) Alkaline Phosphatase 59 U/L (46-116) Troponin I Quantitative 10.086 ng/mL (0.000-0.055) BV-Sxl-F-Type Natriuretic Peptide 5769 pg/mL (0-124) Total Protein 5.5 g/dL (6.4-8.2) Albumin 2.8 g/dL (3.4-5.0) Albumin/Globulin Ratio 1.0 (1.0-1.7) Physical Exam HEENT: Neck Supple W Full Motion Chest: Symmetric LUNGS: Other (fine expiratory wheezes) Heart: S1S2, RRR Abdomen: Soft N/T Extremities: No Edema Neurology: alert, oriented, follow commands Assessment Assessment Continuum of care Please see consult 06/04/18 for further details HPI: This is a 47 yo female who underwent cardiac catheterization 06/04/18 in the setting of acute inferior wall ST elevation myocardial infarction and acute on chronic combined systolic and diastolic heart failure. She was found to have several areas of possible coronary artery vasospasm, significant stenosis involving the posterior descending branch of right coronary artery that was successfully angioplastied (without stent due to small caliber distally) and Takotsubo's cardiomyopathy with an LVEF of 25%. Follow-up angiography 06/06/18 revealed patent previously angioplastied posterior descending branch of right coronary artery and improvement in previously described lesions confirming coronary artery vasospasm, which was consistent with the clinical picture of Takotsubo's cardiomyopathy. The ramus intermedius branch showed significant stenosis in the proximal segment. It is a small to medium caliber vessel distally, which can be managed medically. Patient was discharge home yesterday with ASA, Plavix, Coreg, and lisinopril. Reports compliance with medications. This morning, patient woke up feeling fatigued. Took morning medications and breathing treatment and went back to bed. Initially woke back up feeling better. Went into the bathroom ad began coughing. Sat down and felt diaphoretic. Had tightness in her central chest. [place] nauseated and short of breath. Took BP; 150/97. Due to symptoms and recent STEMI, patient and family was concerned and decided to come to the ED for further evaluation and treatment. Of note, patient has not smoked since Tuesday and has been extremely anxious. Assessment: 1. Recent acute inferior STEMI; patient patient underwent successful PTCA to the posterior descending branch of right coronary artery 06/04/18. Follow-up cath 06/06/18 with improvement in previously described lesions confirming vasospasms. RCA patent. Troponin now 10; most probably trending downward for recent acute STEMI when troponin peaked at 110. 06/06/18 troponin was 62 2. Combine chronic diastolic and systolic HF. clinically compensated. 3. Takotsubo's cardiomyopathy; LVEF 25% per cath. 4. Hypertension; controlled 5. COPD; fine expiratory wheezes. if persistent, may need to stop BB. monitor 6. Anxiety; presently anxious; possible contributing factor. treatment as per PCP Recommendations Check CK, CKMB Trend troponin Resume optimization therapy Add imdur Obtain echo to assess LV systolic function MARIA VICTORIA JENNINGS MD 06/09/18 0924: CARDIO Progress Notes Assessment Assessment Patient seen and examined 06/09/18. Agree with PIER MASTER's assessment and plan. Troponin level trending down from prior admission. Recent cardiac catheterization results noted above. Doubt ACS this admission. Cardiomyopathy clinically well compensated. Continue current medical regimen. Follow-up with our office as previously scheduled. Thank you for your consultation. TAYLER KRUSE APRN Jun 08, 2018 16:57 MARIA VICTORIA JENNINGS MD Jun 09, 2018 09:24
[2018-06-08 18:30] VITALS: BP 111/75
[2018-06-08 19:00] VITALS: BP 109/80
[2018-06-08] MEDS ORDERED: ONDANSETRON PF 4 MG/2 ML VIAL. IV PRN ×2 (19:45→20:15)
[2018-06-08] MEDS ORDERED: ACETAMINOPHEN 325 MG TABLET. PO PRN ×2 (19:45→20:15)
[2018-06-08] MEDS ORDERED: MORPHINE SULFATE 2 MG/ML VIAL. IV PRN ×2 (19:45→20:15)
[2018-06-08 20:00] VITALS: BP 116/87
[2018-06-08] MEDS ORDERED: LACTULOSE 20 GM/30 ML SOLUTION. PO PRN (20:15)
[2018-06-08] MEDS ORDERED: LORazepam 0.5 MG TABLET PO PRN (20:15)
[2018-06-08] MEDS ORDERED: ALBUTEROL SULFATE 2.5 MG/3 ML NEBU. NEB PRN (20:30)
[2018-06-08] MEDS: CLOPIDOGREL BISULFATE 75 MG TABLET PO SCH (20:59)
[2018-06-08 21:00] VITALS: BP 126/88
[2018-06-08] MEDS: PROCHLORPERAZINE 10 MG/2 ML VIAL. IV PRN (21:15)
[2018-06-08 22:00] VITALS: BP 132/91
[2018-06-08] MEDS: FAMOTIDINE 20 MG TABLET. PO SCH (22:01)
[2018-06-08] MEDS: SENNOSIDES/DOCUSATE 8.6/50MG TABLET. PO SCH (22:01)
[2018-06-08] MEDS: CARVEDILOL 6.25 MG TABLET. PO SCH (22:03)
[2018-06-08] MEDS: ISOSORBIDE MONONITRATE ER 30 MG TAB.ER.24H PO SCH (22:03)
[2018-06-08] MEDS: HEPARIN for SUB-Q USE 5,000 UNIT/ML VIAL. SQ SCH (22:05)
[2018-06-08 23:59] VITALS: BP 149/88
[2018-06-09 04:00] VITALS: BP 136/70
[2018-06-09] MEDS: HEPARIN for SUB-Q USE 5,000 UNIT/ML VIAL. SQ SCH ×2 (05:34→14:00)
[2018-06-09] MEDS: ALBUTEROL SULFATE 2.5 MG/3 ML NEBU. NEB SCH ×2 (07:52→11:38)
[2018-06-09 08:00] VITALS: BP 95/71
[2018-06-09] MEDS ORDERED: ASPIRIN ENTERIC COATED 325 MG TABLET.DR. PO SCH (08:00)
[2018-06-09] MEDS ORDERED: ASPIRIN ENTERIC COATED 81 MG TABLET.DR. PO SCH (08:00)
[2018-06-09] MEDS ORDERED: BUDESONIDE 0.5 MG/2 ML NEBU. NEB SCH (08:00)
[2018-06-09] MEDS: SENNOSIDES/DOCUSATE 8.6/50MG TABLET. PO SCH (08:20)
[2018-06-09] MEDS: ISOSORBIDE MONONITRATE ER 30 MG TAB.ER.24H PO SCH (08:20)
[2018-06-09] MEDS: CLOPIDOGREL BISULFATE 75 MG TABLET PO SCH (08:20)
[2018-06-09] MEDS: CARVEDILOL 6.25 MG TABLET. PO SCH (08:21)
[2018-06-09] MEDS: FAMOTIDINE 20 MG TABLET. PO SCH (08:21)
[2018-06-09 08:26] LABS: BASO # 0.1 x10^3/uL (0.0-0.2); BASO % 1 % (0-3); EOS # 0.1 x10^3/uL (0.0-0.7); EOS % 1 % (0-3); HEMATOCRIT 36.3 % (36.0-47.0); HEMOGLOBIN 12.1 g/dL (12.0-15.5); LYMPH # 3.1 x10^3/uL (1.0-4.8); LYMPH % 29 % (24-48); MEAN CORPUSCULAR HEMOGLOBIN 27 pg (25-35); MEAN CORPUSCULAR HGB CONC 33 g/dL (31-37); MEAN CORPUSCULAR VOLUME 81 fL (79-100); MONO # 0.8 x10^3/uL (0.0-1.1); MONO % 8 % (0-9); NEUT # 6.4 x10^3uL (1.8-7.7); NEUT % 60 % (31-73); PLATELET COUNT 370 x10^3/uL (140-400); RED BLOOD COUNT 4.49 x10^6/uL (3.50-5.40); RED CELL DISTRIBUTION WIDTH 17.9 % (11.5-14.5); WHITE BLOOD COUNT 10.5 x10^3/uL (4.0-11.0)
--- NOTE | 2018-06-09 08:41 | PDOC ---
EDITH ORELLANA PICKLE PUMPER 06/09/18 0841: CARDIO Progress Notes Date and Time Date of Service 06/09/2018 Time of Evaluation 0820 Subjective Subjective: No Chest Pain, No shortness of breath, No Palpitations Vitals Vitals Vital Signs Date Time Temp Pulse Resp B/P (MAP) Pulse Ox O2 Delivery O2 Flow Rate FiO2 06/09/18 08:21 136/70 06/09/18 07:53 98 Room Air 06/09/18 04:00 57 14 06/08/18 23:59 98.1 98.1 Weight Weight [ ] Input and Output Intake and Output Intake and Output 06/09/18 07:00 Intake Total 800 ml Balance 800 ml Intake Oral 800 ml # Voids 3 Laboratory Labs Laboratory Tests Test 06/08/18 14:30 06/08/18 15:09 06/08/18 15:10 06/08/18 21:20 White Blood Count 11.6 x10^3/uL (4.0-11.0) Red Blood Count 4.61 x10^6/uL (3.50-5.40) Hemoglobin 12.3 g/dL (12.0-15.5) Hematocrit 37.0 % (36.0-47.0) Mean Corpuscular Volume 80 fL (79-100) Mean Corpuscular Hemoglobin 27 pg (25-35) Mean Corpuscular Hemoglobin Concent 33 g/dL (31-37) Red Cell Distribution Width 18.2 % (11.5-14.5) Platelet Count 361 x10^3/uL (140-400) Neutrophils (%) (Auto) 72 % (31-73) Lymphocytes (%) (Auto) 20 % (24-48) Monocytes (%) (Auto) 8 % (0-9) Eosinophils (%) (Auto) 1 % (0-3) Basophils (%) (Auto) 1 % (0-3) Neutrophils # (Auto) 8.3 x10^3uL (1.8-7.7) Lymphocytes # (Auto) 2.3 x10^3/uL (1.0-4.8) Monocytes # (Auto) 0.9 x10^3/uL (0.0-1.1) Eosinophils # (Auto) 0.1 x10^3/uL (0.0-0.7) Basophils # (Auto) 0.1 x10^3/uL (0.0-0.2) Prothrombin Time 13.6 SEC (11.7-14.0) Prothromb Time International Ratio 1.1 (0.8-1.1) Sodium Level 140 mmol/L (136-145) Potassium Level 4.4 mmol/L (3.5-5.1) Chloride Level 103 mmol/L (98-107) Carbon Dioxide Level 27 mmol/L (21-32) Anion Gap 10 (6-14) Blood Urea Nitrogen 13 mg/dL (7-20) Creatinine 0.7 mg/dL (0.6-1.0) Estimated GFR (Cockcroft-Gault) 88.9 BUN/Creatinine Ratio 19 (6-20) Glucose Level 96 mg/dL (70-99) Calcium Level 8.6 mg/dL (8.5-10.1) Total Bilirubin 0.2 mg/dL (0.2-1.0) Aspartate Amino Transf (AST/SGOT) 32 U/L (15-37) Alanine Aminotransferase (ALT/SGPT) 26 U/L (14-59) Alkaline Phosphatase 59 U/L (46-116) Troponin I Quantitative 10.086 ng/mL (0.000-0.055) 14.259 ng/mL (0.000-0.055) PX-Idu-D-Type Natriuretic Peptide 5769 pg/mL (0-124) Total Protein 5.5 g/dL (6.4-8.2) Albumin 2.8 g/dL (3.4-5.0) Albumin/Globulin Ratio 1.0 (1.0-1.7) Creatine Kinase 92 U/L (26-192) Creatine Kinase MB (Mass) 3.2 ng/mL (0.0-3.6) Creatine Kinase MB Relative Index 3.5 % (0-4) Test 06/08/18 22:15 06/09/18 04:45 Glucose (Fingerstick) 105 mg/dL (70-99) White Blood Count 10.5 x10^3/uL (4.0-11.0) Red Blood Count 4.49 x10^6/uL (3.50-5.40) Hemoglobin 12.1 g/dL (12.0-15.5) Hematocrit 36.3 % (36.0-47.0) Mean Corpuscular Volume 81 fL (79-100) Mean Corpuscular Hemoglobin 27 pg (25-35) Mean Corpuscular Hemoglobin Concent 33 g/dL (31-37) Red Cell Distribution Width 17.9 % (11.5-14.5) Platelet Count 370 x10^3/uL (140-400) Neutrophils (%) (Auto) 60 % (31-73) Lymphocytes (%) (Auto) 29 % (24-48) Monocytes (%) (Auto) 8 % (0-9) Eosinophils (%) (Auto) 1 % (0-3) Basophils (%) (Auto) 1 % (0-3) Neutrophils # (Auto) 6.4 x10^3uL (1.8-7.7) Lymphocytes # (Auto) 3.1 x10^3/uL (1.0-4.8) Monocytes # (Auto) 0.8 x10^3/uL (0.0-1.1) Eosinophils # (Auto) 0.1 x10^3/uL (0.0-0.7) Basophils # (Auto) 0.1 x10^3/uL (0.0-0.2) Troponin I Quantitative 10.154 ng/mL (0.000-0.055) Physical Exam HEENT: Neck Supple W Full Motion Chest: Symmetric LUNGS: Clear to Auscultation Heart: S1S2, RRR (SR) Abdomen: Soft N/T Extremities: No Edema Neurology: alert, oriented, follow commands Assessment Assessment 1. Recent acute inferior STEMI: readmission due to CP with combination of anxiety and vasopasm S/P successful PTCA to PDA on 06/04/18 and with ramus 90% lesion noted small vessel being treated medically. Troponin is gradually declining as expected from recent STEMI, highest at 110 down to 7 2. Combine chronic diastolic and systolic CHF. clinically compensated. 3. Takotsubo's cardiomyopathy; LVEF 25% per cath. 4. HTN: controlled 5. COPD: stable 6. Anxiety with nicotine withdrawal Recommendations 1. doing ok no pain overnight. Imdur has been added. VSS. follow up in 4 weeks 2. previous 1-1.5 packs of tobacco daily possible withdrawal will need PO med for anxiety and tobacco cravings defer to PCP 3. Continue with DAPT and secondary prevention measures. 4. Smoking cessation, avoid excessive caffeine intake MARIA VICTORIA JENNINGS MD 06/09/18 1432: CARDIO Progress Notes Assessment Assessment Patient seen and examined. Agree with SPORTS PHYSICIAN's assessment and plan. Patient presently chest pain-free. Telemetry did not show any significant arrhythmias. Chronic systolic heart failure well compensated. Continue Imdur. Okay for discharge from cardiac standpoint. Plan for 2-D echo in 3 months to look for improvement in LV systolic function. EDITH ORELLANA APRN Jun 09, 2018 08:41 MARIA VICTORIA JENNINGS MD Jun 09, 2018 14:32
[2018-06-09 08:52] LABS: CALCIUM 8.8 mg/dL (8.5-10.1); CREATININE 0.8 mg/dL (0.6-1.0); GFR 76.2
[2018-06-09] MEDS ORDERED: LISINOPRIL 5 MG TABLET. PO SCH (09:00)
[2018-06-09] MEDS: PROCHLORPERAZINE 10 MG/2 ML VIAL. IV PRN (09:51)
[2018-06-09 10:00] VITALS: BP 111/82
--- NOTE | 2018-06-09 10:46 | EKG ---
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
--- NOTE | 2018-06-09 11:33 | PDOC ---
PROGRESS NOTES Chief Complaint Chief Complaint Recent acute inferior STEMI; s/p PTCA to the posterior descending branch of right coronary artery 06/04/18. Follow-up cath 06/06/18 with improvement in previously described lesions confirming vasospasms. RCA patent. Troponin now 10 ; most probably trending downward for recent acute STEMI when troponin peaked at 110. 06/06/18 troponin was 62 Combine chronic diastolic and systolic HF, clinically compensated Takotsubo's cardiomyopathy; LVEF 25% per cath Hypertension; controlled COPD H/o anxiety H/o celiac sprue H/o HLD H/o tobacco dependence, recently quit History of Present Illness History of Present Illness Pt seen and examined in ICU Laying in bed in NAD Discussed with RN Vitals Vitals Vital Signs Date Time Temp Pulse Resp B/P (MAP) Pulse Ox O2 Delivery O2 Flow Rate FiO2 06/09/18 10:00 68 20 111/82 (92) 99 Room Air 06/09/18 08:00 97.5 97.5 Physical Exam General: Alert, Oriented X3, Cooperative, No acute distress Heart: Regular rate, Normal S1, Normal S2 Lungs: Clear Abdomen: Normal bowel sounds, Soft, No tenderness, No hepatosplenomegaly, No masses Extremities: No clubbing, No cyanosis, No edema, Normal pulses, No tenderness/ swelling Skin: No rashes, No breakdown, No significant lesion Labs LABS Laboratory Tests Test 06/08/18 14:30 06/08/18 15:09 06/08/18 15:10 06/08/18 21:20 White Blood Count 11.6 x10^3/uL (4.0-11.0) Red Blood Count 4.61 x10^6/uL (3.50-5.40) Hemoglobin 12.3 g/dL (12.0-15.5) Hematocrit 37.0 % (36.0-47.0) Mean Corpuscular Volume 80 fL (79-100) Mean Corpuscular Hemoglobin 27 pg (25-35) Mean Corpuscular Hemoglobin Concent 33 g/dL (31-37) Red Cell Distribution Width 18.2 % (11.5-14.5) Platelet Count 361 x10^3/uL (140-400) Neutrophils (%) (Auto) 72 % (31-73) Lymphocytes (%) (Auto) 20 % (24-48) Monocytes (%) (Auto) 8 % (0-9) Eosinophils (%) (Auto) 1 % (0-3) Basophils (%) (Auto) 1 % (0-3) Neutrophils # (Auto) 8.3 x10^3uL (1.8-7.7) Lymphocytes # (Auto) 2.3 x10^3/uL (1.0-4.8) Monocytes # (Auto) 0.9 x10^3/uL (0.0-1.1) Eosinophils # (Auto) 0.1 x10^3/uL (0.0-0.7) Basophils # (Auto) 0.1 x10^3/uL (0.0-0.2) Prothrombin Time 13.6 SEC (11.7-14.0) Prothromb Time International Ratio 1.1 (0.8-1.1) Sodium Level 140 mmol/L (136-145) Potassium Level 4.4 mmol/L (3.5-5.1) Chloride Level 103 mmol/L (98-107) Carbon Dioxide Level 27 mmol/L (21-32) Anion Gap 10 (6-14) Blood Urea Nitrogen 13 mg/dL (7-20) Creatinine 0.7 mg/dL (0.6-1.0) Estimated GFR (Cockcroft-Gault) 88.9 BUN/Creatinine Ratio 19 (6-20) Glucose Level 96 mg/dL (70-99) Calcium Level 8.6 mg/dL (8.5-10.1) Total Bilirubin 0.2 mg/dL (0.2-1.0) Aspartate Amino Transf (AST/SGOT) 32 U/L (15-37) Alanine Aminotransferase (ALT/SGPT) 26 U/L (14-59) Alkaline Phosphatase 59 U/L (46-116) Troponin I Quantitative 10.086 ng/mL (0.000-0.055) 14.259 ng/mL (0.000-0.055) YB-Jmc-C-Type Natriuretic Peptide 5769 pg/mL (0-124) Total Protein 5.5 g/dL (6.4-8.2) Albumin 2.8 g/dL (3.4-5.0) Albumin/Globulin Ratio 1.0 (1.0-1.7) Creatine Kinase 92 U/L (26-192) Creatine Kinase MB (Mass) 3.2 ng/mL (0.0-3.6) Creatine Kinase MB Relative Index 3.5 % (0-4) Test 06/08/18 22:15 06/09/18 04:45 Glucose (Fingerstick) 105 mg/dL (70-99) White Blood Count 10.5 x10^3/uL (4.0-11.0) Red Blood Count 4.49 x10^6/uL (3.50-5.40) Hemoglobin 12.1 g/dL (12.0-15.5) Hematocrit 36.3 % (36.0-47.0) Mean Corpuscular Volume 81 fL (79-100) Mean Corpuscular Hemoglobin 27 pg (25-35) Mean Corpuscular Hemoglobin Concent 33 g/dL (31-37) Red Cell Distribution Width 17.9 % (11.5-14.5) Platelet Count 370 x10^3/uL (140-400) Neutrophils (%) (Auto) 60 % (31-73) Lymphocytes (%) (Auto) 29 % (24-48) Monocytes (%) (Auto) 8 % (0-9) Eosinophils (%) (Auto) 1 % (0-3) Basophils (%) (Auto) 1 % (0-3) Neutrophils # (Auto) 6.4 x10^3uL (1.8-7.7) Lymphocytes # (Auto) 3.1 x10^3/uL (1.0-4.8) Monocytes # (Auto) 0.8 x10^3/uL (0.0-1.1) Eosinophils # (Auto) 0.1 x10^3/uL (0.0-0.7) Basophils # (Auto) 0.1 x10^3/uL (0.0-0.2) Sodium Level 138 mmol/L (136-145) Potassium Level 5.0 mmol/L (3.5-5.1) Chloride Level 103 mmol/L (98-107) Carbon Dioxide Level 25 mmol/L (21-32) Anion Gap 10 (6-14) Blood Urea Nitrogen 12 mg/dL (7-20) Creatinine 0.8 mg/dL (0.6-1.0) Estimated GFR (Cockcroft-Gault) 76.2 Glucose Level 101 mg/dL (70-99) Calcium Level 8.8 mg/dL (8.5-10.1) Troponin I Quantitative 10.154 ng/mL (0.000-0.055) Review of Systems Review of Systems Pt c/o constipation and some nausea after attempting to eat food. However, she notes that she is able to eat and keep it down now which is improved since her last stay. She denies any CP or vomiting. Assessment and Plan Assessmemt and Plan Assessment: Recent acute inferior STEMI; s/p PTCA to the posterior descending branch of right coronary artery 06/04/18. Follow-up cath 06/06/18 with improvement in previously described lesions confirming vasospasms. RCA patent. Troponin now 7.8 ; most probably trending downward for recent acute STEMI when troponin peaked at 110 Combine chronic diastolic and systolic HF, clinically compensated Takotsubo's cardiomyopathy; LVEF 25% per cath Hypertension; controlled COPD H/o anxiety H/o celiac sprue H/o HLD H/o tobacco dependence, recently quit Plan: ICU monitoring Monitor labs and repeat troponin to see it trending down Breathing treatments Home meds Stool softeners PT/OT DVT ppx Comment Review of Relevant I have reviewed the following items mahsa (where applicable) has been applied. Labs Laboratory Tests Test 06/08/18 14:30 06/08/18 15:09 06/08/18 15:10 06/08/18 21:20 White Blood Count 11.6 x10^3/uL (4.0-11.0) Red Blood Count 4.61 x10^6/uL (3.50-5.40) Hemoglobin 12.3 g/dL (12.0-15.5) Hematocrit 37.0 % (36.0-47.0) Mean Corpuscular Volume 80 fL (79-100) Mean Corpuscular Hemoglobin 27 pg (25-35) Mean Corpuscular Hemoglobin Concent 33 g/dL (31-37) Red Cell Distribution Width 18.2 % (11.5-14.5) Platelet Count 361 x10^3/uL (140-400) Neutrophils (%) (Auto) 72 % (31-73) Lymphocytes (%) (Auto) 20 % (24-48) Monocytes (%) (Auto) 8 % (0-9) Eosinophils (%) (Auto) 1 % (0-3) Basophils (%) (Auto) 1 % (0-3) Neutrophils # (Auto) 8.3 x10^3uL (1.8-7.7) Lymphocytes # (Auto) 2.3 x10^3/uL (1.0-4.8) Monocytes # (Auto) 0.9 x10^3/uL (0.0-1.1) Eosinophils # (Auto) 0.1 x10^3/uL (0.0-0.7) Basophils # (Auto) 0.1 x10^3/uL (0.0-0.2) Prothrombin Time 13.6 SEC (11.7-14.0) Prothromb Time International Ratio 1.1 (0.8-1.1) Sodium Level 140 mmol/L (136-145) Potassium Level 4.4 mmol/L (3.5-5.1) Chloride Level 103 mmol/L (98-107) Carbon Dioxide Level 27 mmol/L (21-32) Anion Gap 10 (6-14) Blood Urea Nitrogen 13 mg/dL (7-20) Creatinine 0.7 mg/dL (0.6-1.0) Estimated GFR (Cockcroft-Gault) 88.9 BUN/Creatinine Ratio 19 (6-20) Glucose Level 96 mg/dL (70-99) Calcium Level 8.6 mg/dL (8.5-10.1) Total Bilirubin 0.2 mg/dL (0.2-1.0) Aspartate Amino Transf (AST/SGOT) 32 U/L (15-37) Alanine Aminotransferase (ALT/SGPT) 26 U/L (14-59) Alkaline Phosphatase 59 U/L (46-116) Troponin I Quantitative 10.086 ng/mL (0.000-0.055) 14.259 ng/mL (0.000-0.055) KQ-Rqa-R-Type Natriuretic Peptide 5769 pg/mL (0-124) Total Protein 5.5 g/dL (6.4-8.2) Albumin 2.8 g/dL (3.4-5.0) Albumin/Globulin Ratio 1.0 (1.0-1.7) Creatine Kinase 92 U/L (26-192) Creatine Kinase MB (Mass) 3.2 ng/mL (0.0-3.6) Creatine Kinase MB Relative Index 3.5 % (0-4) Test 06/08/18 22:15 06/09/18 04:45 Glucose (Fingerstick) 105 mg/dL (70-99) White Blood Count 10.5 x10^3/uL (4.0-11.0) Red Blood Count 4.49 x10^6/uL (3.50-5.40) Hemoglobin 12.1 g/dL (12.0-15.5) Hematocrit 36.3 % (36.0-47.0) Mean Corpuscular Volume 81 fL (79-100) Mean Corpuscular Hemoglobin 27 pg (25-35) Mean Corpuscular Hemoglobin Concent 33 g/dL (31-37) Red Cell Distribution Width 17.9 % (11.5-14.5) Platelet Count 370 x10^3/uL (140-400) Neutrophils (%) (Auto) 60 % (31-73) Lymphocytes (%) (Auto) 29 % (24-48) Monocytes (%) (Auto) 8 % (0-9) Eosinophils (%) (Auto) 1 % (0-3) Basophils (%) (Auto) 1 % (0-3) Neutrophils # (Auto) 6.4 x10^3uL (1.8-7.7) Lymphocytes # (Auto) 3.1 x10^3/uL (1.0-4.8) Monocytes # (Auto) 0.8 x10^3/uL (0.0-1.1) Eosinophils # (Auto) 0.1 x10^3/uL (0.0-0.7) Basophils # (Auto) 0.1 x10^3/uL (0.0-0.2) Sodium Level 138 mmol/L (136-145) Potassium Level 5.0 mmol/L (3.5-5.1) Chloride Level 103 mmol/L (98-107) Carbon Dioxide Level 25 mmol/L (21-32) Anion Gap 10 (6-14) Blood Urea Nitrogen 12 mg/dL (7-20) Creatinine 0.8 mg/dL (0.6-1.0) Estimated GFR (Cockcroft-Gault) 76.2 Glucose Level 101 mg/dL (70-99) Calcium Level 8.8 mg/dL (8.5-10.1) Troponin I Quantitative 10.154 ng/mL (0.000-0.055) Laboratory Tests Test 06/08/18 14:30 06/08/18 15:09 06/08/18 15:10 06/08/18 21:20 White Blood Count 11.6 x10^3/uL (4.0-11.0) Red Blood Count 4.61 x10^6/uL (3.50-5.40) Hemoglobin 12.3 g/dL (12.0-15.5) Hematocrit 37.0 % (36.0-47.0) Mean Corpuscular Volume 80 fL (79-100) Mean Corpuscular Hemoglobin 27 pg (25-35) Mean Corpuscular Hemoglobin Concent 33 g/dL (31-37) Red Cell Distribution Width 18.2 % (11.5-14.5) Platelet Count 361 x10^3/uL (140-400) Neutrophils (%) (Auto) 72 % (31-73) Lymphocytes (%) (Auto) 20 % (24-48) Monocytes (%) (Auto) 8 % (0-9) Eosinophils (%) (Auto) 1 % (0-3) Basophils (%) (Auto) 1 % (0-3) Neutrophils # (Auto) 8.3 x10^3uL (1.8-7.7) Lymphocytes # (Auto) 2.3 x10^3/uL (1.0-4.8) Monocytes # (Auto) 0.9 x10^3/uL (0.0-1.1) Eosinophils # (Auto) 0.1 x10^3/uL (0.0-0.7) Basophils # (Auto) 0.1 x10^3/uL (0.0-0.2) Prothrombin Time 13.6 SEC (11.7-14.0) Prothromb Time International Ratio 1.1 (0.8-1.1) Sodium Level 140 mmol/L (136-145) Potassium Level 4.4 mmol/L (3.5-5.1) Chloride Level 103 mmol/L (98-107) Carbon Dioxide Level 27 mmol/L (21-32) Anion Gap 10 (6-14) Blood Urea Nitrogen 13 mg/dL (7-20) Creatinine 0.7 mg/dL (0.6-1.0) Estimated GFR (Cockcroft-Gault) 88.9 BUN/Creatinine Ratio 19 (6-20) Glucose Level 96 mg/dL (70-99) Calcium Level 8.6 mg/dL (8.5-10.1) Total Bilirubin 0.2 mg/dL (0.2-1.0) Aspartate Amino Transf (AST/SGOT) 32 U/L (15-37) Alanine Aminotransferase (ALT/SGPT) 26 U/L (14-59) Alkaline Phosphatase 59 U/L (46-116) Troponin I Quantitative 10.086 ng/mL (0.000-0.055) 14.259 ng/mL (0.000-0.055) RH-Ggf-H-Type Natriuretic Peptide 5769 pg/mL (0-124) Total Protein 5.5 g/dL (6.4-8.2) Albumin 2.8 g/dL (3.4-5.0) Albumin/Globulin Ratio 1.0 (1.0-1.7) Creatine Kinase 92 U/L (26-192) Creatine Kinase MB (Mass) 3.2 ng/mL (0.0-3.6) Creatine Kinase MB Relative Index 3.5 % (0-4) Test 06/08/18 22:15 06/09/18 04:45 Glucose (Fingerstick) 105 mg/dL (70-99) White Blood Count 10.5 x10^3/uL (4.0-11.0) Red Blood Count 4.49 x10^6/uL (3.50-5.40) Hemoglobin 12.1 g/dL (12.0-15.5) Hematocrit 36.3 % (36.0-47.0) Mean Corpuscular Volume 81 fL (79-100) Mean Corpuscular Hemoglobin 27 pg (25-35) Mean Corpuscular Hemoglobin Concent 33 g/dL (31-37) Red Cell Distribution Width 17.9 % (11.5-14.5) Platelet Count 370 x10^3/uL (140-400) Neutrophils (%) (Auto) 60 % (31-73) Lymphocytes (%) (Auto) 29 % (24-48) Monocytes (%) (Auto) 8 % (0-9) Eosinophils (%) (Auto) 1 % (0-3) Basophils (%) (Auto) 1 % (0-3) Neutrophils # (Auto) 6.4 x10^3uL (1.8-7.7) Lymphocytes # (Auto) 3.1 x10^3/uL (1.0-4.8) Monocytes # (Auto) 0.8 x10^3/uL (0.0-1.1) Eosinophils # (Auto) 0.1 x10^3/uL (0.0-0.7) Basophils # (Auto) 0.1 x10^3/uL (0.0-0.2) Sodium Level 138 mmol/L (136-145) Potassium Level 5.0 mmol/L (3.5-5.1) Chloride Level 103 mmol/L (98-107) Carbon Dioxide Level 25 mmol/L (21-32) Anion Gap 10 (6-14) Blood Urea Nitrogen 12 mg/dL (7-20) Creatinine 0.8 mg/dL (0.6-1.0) Estimated GFR (Cockcroft-Gault) 76.2 Glucose Level 101 mg/dL (70-99) Calcium Level 8.8 mg/dL (8.5-10.1) Troponin I Quantitative 10.154 ng/mL (0.000-0.055) Medications Current Medications Aspirin (Children'S Aspirin) 324 mg 1X ONCE PO ; Start 06/08/18 at 14:00; Stop 06/08/18 at 14:01; Status DC Fentanyl Citrate (Fentanyl 2ml Vial) 50 mcg 1X ONCE IV Last administered on at 15:50; Start 06/08/18 at 14:30; Stop 06/08/18 at 14:31; Status DC Isosorbide Mononitrate (Imdur) 30 mg DAILY PO Last administered on 06/09/18at 08 :20; Start 06/08/18 at 18:30 Carvedilol (Coreg) 6.25 mg BIDWMEALS PO Last administered on 06/09/18at 08:21; Start 06/08/18 at 18:30 Clopidogrel Bisulfate (Plavix) 75 mg DAILYWBKFT PO Last administered on at 08:20; Start 06/08/18 at 19:00 Lisinopril (Prinivil) 5 mg DAILY PO ; Start 06/09/18 at 09:00 Ondansetron HCl (Zofran) 4 mg PRN Q6HRS PRN IV NAUSEA/VOMITING 1ST CHOICE; Start 06/08/18 at 19:45 Famotidine (Pepcid) 20 mg BID PO Last administered on 06/09/18at 08:21; Start 06/08/18 at 21:00 Acetaminophen (Tylenol) 650 mg PRN Q6HRS PRN PO MILD PAIN / TEMP; Start at 19:45; Status Cancel Morphine Sulfate (Morphine Sulfate) 2 mg PRN Q2HR PRN IV SEVERE PAIN; Start at 19:45 Aspirin (Ecotrin) 325 mg DAILYWBKFT PO Last administered on 06/09/18at 08:20; Start 06/09/18 at 08:00 Ondansetron HCl (Zofran) 4 mg PRN Q6HRS PRN IV NAUSEA/VOMITING; Start 06/08/18 at 20:15; Status UNV Morphine Sulfate (Morphine Sulfate) 2 mg PRN Q4HRS PRN IV PAIN SEVERE; Start 06/08/18 at 20:15; Status Cancel Acetaminophen (Tylenol) 650 mg PRN Q6HRS PRN PO Headaches, Temp > 101.5F; Start 06/08/18 at 20:15 Senna/Docusate Sodium (Senna Plus) 1 tab BID PO Last administered on 06/09/18at 08:20; Start 06/08/18 at 21:00 Lactulose (Lactulose) 20 gm PRN Q12HR PRN PO CONSTIPATION 1ST CHOICE; Start at 20:15 Heparin Sodium (Porcine) (Heparin Sodium) 5,000 unit Q8HRS SQ Last administered on 06/09/18at 05:34; Start 06/08/18 at 22:00 Albuterol Sulfate (Ventolin Neb Soln) 2.5 mg PRN Q4HRS PRN NEB SHORTNESS OF BREATH; Start 06/08/18 at 20:30 Budesonide (Pulmicort) 0.5 mg RTBID NEB Last administered on 06/09/18at 07:52; Start 06/09/18 at 08:00 Aspirin (Ecotrin) 81 mg DAILYWBKFT PO ; Start 06/09/18 at 08:00; Status UNV Lorazepam (Ativan) 0.5 mg PRN Q8HRS PRN PO ANXIETY / AGITATION; Start 06/08/18 at 20:15 Albuterol Sulfate (Ventolin Neb Soln) 2.5 mg RTQID NEB Last administered on 06/09/18at 07:52; Start 06/09/18 at 08:00 Prochlorperazine Edisylate (Compazine) 5 mg PRN Q6HRS PRN IV NAUSEA/VOMITING 2nd choice Last administered on 06/09/18at 09:51; Start 06/08/18 at 21:00 Active Scripts Active Clopidogrel (Clopidogrel Bisulfate) 75 Mg Tablet 75 Mg PO DAILYWBKFT 30 Days Carvedilol 6.25 Mg Tablet 6.25 Mg PO BIDWMEALS 30 Days Lisinopril 5 Mg Tablet 5 Mg PO DAILY 30 Days Reported Advair 100-50 Diskus (Fluticasone/Salmeterol) 1 Each Disk.w.dev 1 Inh IH BID Albuterol Sulfate Hfa Inhaler (Albuterol Sulfate) 8.5 Gm Hfa.aer.ad 2 Puff INH Q4HRS PRN Diazepam 10 Mg Tablet 10 Mg PO DAILY PRN Vitals/I & O Vital Sign - Last 24 Hours 06/08/18 06/08/18 06/08/18 06/08/18 13:54 15:00 15:30 15:50 Temp 98.3 98.3 Pulse 77 72 72 Resp 20 18 18 22 B/P (MAP) 106/67 (80) 106/67 (80) 103/73 (83) Pulse Ox 96 98 96 98 O2 Delivery Room Air Room Air Room Air 06/08/18 06/08/18 06/08/18 06/08/18 15:51 16:00 16:30 17:00 Pulse 79 72 72 88 Resp 20 16 18 20 B/P (MAP) 110/72 (85) 103/73 (83) 104/70 (81) 107/68 (81) Pulse Ox 99 98 96 96 06/08/18 06/08/18 06/08/18 06/08/18 17:45 18:30 19:00 20:00 Temp 98.2 98.2 Pulse 73 66 78 76 Resp 20 16 16 16 B/P (MAP) 97/67 (77) 111/75 (87) 109/80 (90) 116/87 (97) Pulse Ox 97 99 99 98 O2 Delivery Room Air Room Air Room Air 06/08/18 06/08/18 06/08/18 06/08/18 20:00 21:00 22:00 22:03 Pulse 72 75 75 Resp 14 18 B/P (MAP) 126/88 (101) 132/91 (105) 132/91 Pulse Ox 97 97 O2 Delivery Room Air Room Air Room Air 06/08/18 06/08/18 06/09/18 06/09/18 22:03 23:59 04:00 07:53 Temp 98.1 98.1 Pulse 75 76 57 Resp 18 14 B/P (MAP) 132/91 149/88 (108) 136/70 (92) Pulse Ox 96 99 98 O2 Delivery Room Air Room Air Room Air 06/09/18 06/09/18 06/09/18 06/09/18 08:00 08:00 08:20 08:21 Temp 97.5 97.5 Pulse 72 Resp 18 B/P (MAP) 95/71 (79) 136/70 136/70 Pulse Ox 99 O2 Delivery Room Air Room Air 06/09/18 10:00 Pulse 68 Resp 20 B/P (MAP) 111/82 (92) Pulse Ox 99 O2 Delivery Room Air Intake and Output 06/08/18 06/08/18 06/09/18 15:00 23:00 07:00 Intake Total 800 ml Balance 800 ml Nutrition Consultation Dietary Evaluation: Recommendations by RD: Protein supplementation Comments: REC cardiac, gluten-free diet (pt has celiac disease) REC Ensure TID (chocolate and vanilla flavors) Expected Outcomes/Goals: PO intake to meet >75% est needs Malnutrition Findings: Body Fat Depletion (Non Severe: Mild Depletion Weight Status: Underweight MARINO BATISTA III DO Jun 09, 2018 11:33
[2018-06-09 12:00] VITALS: BP 95/71
[2018-06-09] MEDS ORDERED: VALIUM10 MG PO (13:13)
[2018-06-09] MEDS ORDERED: NITR0.3T5 SL (13:22)
[2018-06-09] MEDS ORDERED: ISOS30TA4 PO (13:27)
[2018-06-09 14:00] VITALS: BP 121/76
[2018-06-09 14:34] VITALS: BP 121/76
== END 2018-06-09 14:30 | disposition home or self-care (01) | DRG 281 ==
LOC: ER 13:30 → ED HOLD 15:30 → 1 WEST ICU 18:29
PROVIDERS: ADMIT Internal Medicine; ATTEND Internal Medicine
DX: I22.1 Subsequent ST elevation (STEMI) myocardial infarction of inferior wall (principal); F17.203 Nicotine dependence unspecified, with withdrawal; I50.42 Chronic combined systolic (congestive) and diastolic (congestive) heart failure; I21.19 ST elevation (STEMI) myocardial infarction involving other coronary artery of inferior wall; E78.5 Hyperlipidemia, unspecified; F41.9 Anxiety disorder, unspecified; I11.0 Hypertensive heart disease with heart failure; J44.9 Chronic obstructive pulmonary disease, unspecified; K90.0 Celiac disease; I25.10 Atherosclerotic heart disease of native coronary artery without angina pectoris; I25.2 Old myocardial infarction; Z82.49 Family history of ischemic heart disease and other diseases of the circulatory system; Z90.49 Acquired absence of other specified parts of digestive tract; Z95.5 Presence of coronary angioplasty implant and graft; Z79.899 Other long term (current) drug therapy
CPT/HCPCS: 36415; 71045; 80048; 80053; 82553; 82962; 83880; 84484; 85025; 85610; 87641; 93005; 94640; 94760; 96374; J0780; J1644; J3010; J7613; J7626; 99285-25

== ENCOUNTER 2018-11-23 18:30 | Inpatient (IN) | payer OTHER ==
[~2018-11-23] VITALS: Ht 170.2 cm; Wt 45.4 kg
[~2018-11-23 18:30] MED LIST changes: +CARV6.2511 PO; -CARV6.252 PO; +ISOS30TA4 PO; +NITR0.3T5 SL; +VALIUM10 MG PO
[2018-11-23] MEDS ORDERED: MORPHINE SULFATE 2 MG/ML VIAL. IV ONE ×2 (18:45→19:15)
[2018-11-23 18:49] LABS: BASO # 0.1 x10^3/uL (0.0-0.2); BASO % 1 % (0-3); EOS # 0.1 x10^3/uL (0.0-0.7); EOS % 1 % (0-3); HEMATOCRIT 38.4 % (36.0-47.0); HEMOGLOBIN 12.3 g/dL (12.0-15.5); LYMPH # 3.4 x10^3/uL (1.0-4.8); LYMPH % 31 % (24-48); MEAN CORPUSCULAR HEMOGLOBIN 23 pg (25-35); MEAN CORPUSCULAR HGB CONC 32 g/dL (31-37); MEAN CORPUSCULAR VOLUME 74 fL (79-100); MONO # 0.6 x10^3/uL (0.0-1.1); MONO % 6 % (0-9); NEUT # 6.7 x10^3uL (1.8-7.7); NEUT % 62 % (31-73); PLATELET COUNT 371 x10^3/uL (140-400); RED BLOOD COUNT 5.23 x10^6/uL (3.50-5.40); WHITE BLOOD COUNT 10.9 x10^3/uL (4.0-11.0)
--- NOTE | 2018-11-23 18:54 | PHYS DOC ---
Past Medical History Past Medical History: CAD, COPD, Hypertension, Lung Disease, PA Additional Past Medical Histor: celiac disease (BRENTON RUGGIERO) Past Surgical History: Angioplasty, Tonsillectomy, Other Additional Past Surgical Histo: eye surgery, knee surgery, hemmorhoidectomy; heart cath 05/2018; (BRENTON RUGGIERO) Alcohol Use: None Drug Use: None (BRENTON RUGGIERO) Adult General Chief Complaint Chief Complaint: CHEST PAIN HPI HPI Patient is a 48 year old F who arrives today with complaints of L sided chest pain radiating into her L shoulder and arm. She reports that this morning she had N/V and diophoresis but went ahead and went to work and then at work developed chest pain that started around 1500. She arrives nauseated and complaining of low back pain as well as the chest pain. Pt does have a hx of an inferior wall ST elevation PA in May,. She is followed by Dr. Gutierrez. Pt took 325mg ASA prior to arrival to ER. She was out of her nitro and states she ran out last week. Pt is very hypertensive and states she normally takes her blood pressure medicine at bedtime. (BRENTON RUGGIERO) Review of Systems Review of Systems Constitutional: Denies fever or chills Respiratory: Reports cough, wheezing and shortness of breath. Cardiovascular: Reports chest pain GI: Denies abdominal pain, nausea, vomiting, bloody stools or diarrhea Musculoskeletal: Denies back pain or joint pain Integument: Denies rash or skin lesions Neurologic: Denies headache, focal weakness or sensory changes Endocrine: Denies polyuria or polydipsia All other systems were reviewed and found to be within normal limits, except as documented in this note. (BRENTON RUGGIERO) Current Medications Current Medications Current Medications Medications (Trade) Dose Ordered Sig/Kwesi Start Time Stop Time Status Last Admin Dose Admin Albuterol Sulfate (Ventolin Neb Soln) 2.5 mg 1X ONCE 11/23/18 19:15 11/23/18 19:16 DC 11/23/18 19:58 2.5 MG Morphine Sulfate (Morphine Sulfate) 2 mg 1X ONCE 11/23/18 19:15 11/23/18 19:16 DC 11/23/18 19:23 2 MG Nitroglycerin (Nitrostat) 0.4 mg PRN Q5MIN PRN 11/23/18 18:45 11/25/18 17:36 DC 11/23/18 21:16 0.4 MG Ondansetron HCl (Zofran) 4 mg STK-MED ONCE 11/23/18 18:55 11/23/18 18:56 DC (ABRAN CARLIN DO) Allergies Allergies Allergies Coded Allergies Type Severity Reaction Last Updated Verified No Known Drug Allergies 02/15/14 No (ABRAN CARLIN DO) Physical Exam Physical Exam Constitutional: Well developed, thin female, appears in pain and uncomfortable. HEENT: Normocephalic, atraumatic, bilateral external ears normal, oropharynx moist, no oral exudates, nose normal. Neck: Normal range of motion, no tenderness, supple, no stridor. Cardiovascular:Heart rate regular rhythm, no murmur. Chest pain in L chest and up to L neck and arm. Lungs & Thorax: Wheezing B lungs throughout. Abdomen: Bowel sounds normal, soft, no tenderness, no masses, no pulsatile masses. Skin: Warm, dry, no erythema, no rash. Back: No tenderness, no CVA tenderness. Extremities: No tenderness, no cyanosis, no clubbing, ROM intact, no edema. Neurologic: Alert and oriented X 3, normal motor function, normal sensory function, no focal deficits noted. Psychologic: Affect normal, judgement normal, mood normal. (BRENTON RUGGIERO) Current Patient Data Lab Values Laboratory Tests Test 11/23/18 18:40 11/23/18 18:42 11/23/18 19:15 White Blood Count 10.9 x10^3/uL (4.0-11.0) Red Blood Count 5.23 x10^6/uL (3.50-5.40) Hemoglobin 12.3 g/dL (12.0-15.5) Hematocrit 38.4 % (36.0-47.0) Mean Corpuscular Volume 74 fL (79-100) L Mean Corpuscular Hemoglobin 23 pg (25-35) L Mean Corpuscular Hemoglobin Concent 32 g/dL (31-37) Red Cell Distribution Width 19.0 % (11.5-14.5) H Platelet Count 371 x10^3/uL (140-400) Neutrophils (%) (Auto) 62 % (31-73) Lymphocytes (%) (Auto) 31 % (24-48) Monocytes (%) (Auto) 6 % (0-9) Eosinophils (%) (Auto) 1 % (0-3) Basophils (%) (Auto) 1 % (0-3) Neutrophils # (Auto) 6.7 x10^3uL (1.8-7.7) Lymphocytes # (Auto) 3.4 x10^3/uL (1.0-4.8) Monocytes # (Auto) 0.6 x10^3/uL (0.0-1.1) Eosinophils # (Auto) 0.1 x10^3/uL (0.0-0.7) Basophils # (Auto) 0.1 x10^3/uL (0.0-0.2) Prothrombin Time 13.7 SEC (11.7-14.0) Prothrombin Time INR 1.1 (0.8-1.1) POC Troponin I 0.01 ng/ml (<0.08) Sodium Level 139 mmol/L (136-145) Potassium Level 4.3 mmol/L (3.5-5.1) Chloride Level 103 mmol/L (98-107) Carbon Dioxide Level 24 mmol/L (21-32) Anion Gap 12 (6-14) Blood Urea Nitrogen 11 mg/dL (7-20) Creatinine 0.8 mg/dL (0.6-1.0) Estimated GFR (Cockcroft-Gault) 75.9 BUN/Creatinine Ratio 14 (6-20) Glucose Level 103 mg/dL (70-99) H Calcium Level 9.2 mg/dL (8.5-10.1) Total Bilirubin 0.4 mg/dL (0.2-1.0) Aspartate Amino Transferase (AST) 18 U/L (15-37) Alanine Aminotransferase (ALT) 15 U/L (14-59) Alkaline Phosphatase 56 U/L (46-116) Creatine Kinase 82 U/L (26-192) Creatine Kinase MB (Mass) 1.7 ng/mL (0.0-3.6) Creatine Kinase MB Relative Index 2.1 % (0-4) Troponin I Quantitative < 0.017 ng/mL (0.000-0.055) UU-Irt-O-Type Natriuretic Peptide 2837 pg/mL (0-124) H Total Protein 6.3 g/dL (6.4-8.2) L Albumin 3.9 g/dL (3.4-5.0) Albumin/Globulin Ratio 1.6 (1.0-1.7) Laboratory Tests 11/23/18 18:40 Laboratory Tests 11/23/18 19:15 (ABRAN CARLIN DO) Lab Values Laboratory Tests Test 11/23/18 18:40 11/23/18 18:42 11/23/18 19:15 White Blood Count 10.9 x10^3/uL (4.0-11.0) Red Blood Count 5.23 x10^6/uL (3.50-5.40) Hemoglobin 12.3 g/dL (12.0-15.5) Hematocrit 38.4 % (36.0-47.0) Mean Corpuscular Volume 74 fL (79-100) L Mean Corpuscular Hemoglobin 23 pg (25-35) L Mean Corpuscular Hemoglobin Concent 32 g/dL (31-37) Red Cell Distribution Width 19.0 % (11.5-14.5) H Platelet Count 371 x10^3/uL (140-400) Neutrophils (%) (Auto) 62 % (31-73) Lymphocytes (%) (Auto) 31 % (24-48) Monocytes (%) (Auto) 6 % (0-9) Eosinophils (%) (Auto) 1 % (0-3) Basophils (%) (Auto) 1 % (0-3) Neutrophils # (Auto) 6.7 x10^3uL (1.8-7.7) Lymphocytes # (Auto) 3.4 x10^3/uL (1.0-4.8) Monocytes # (Auto) 0.6 x10^3/uL (0.0-1.1) Eosinophils # (Auto) 0.1 x10^3/uL (0.0-0.7) Basophils # (Auto) 0.1 x10^3/uL (0.0-0.2) Prothrombin Time 13.7 SEC (11.7-14.0) Prothrombin Time INR 1.1 (0.8-1.1) POC Troponin I 0.01 ng/ml (<0.08) Sodium Level 139 mmol/L (136-145) Potassium Level 4.3 mmol/L (3.5-5.1) Chloride Level 103 mmol/L (98-107) Carbon Dioxide Level 24 mmol/L (21-32) Anion Gap 12 (6-14) Blood Urea Nitrogen 11 mg/dL (7-20) Creatinine 0.8 mg/dL (0.6-1.0) Estimated GFR (Cockcroft-Gault) 75.9 BUN/Creatinine Ratio 14 (6-20) Glucose Level 103 mg/dL (70-99) H Calcium Level 9.2 mg/dL (8.5-10.1) Total Bilirubin 0.4 mg/dL (0.2-1.0) Aspartate Amino Transferase (AST) 18 U/L (15-37) Alanine Aminotransferase (ALT) 15 U/L (14-59) Alkaline Phosphatase 56 U/L (46-116) Creatine Kinase 82 U/L (26-192) Creatine Kinase MB (Mass) 1.7 ng/mL (0.0-3.6) Creatine Kinase MB Relative Index 2.1 % (0-4) Troponin I Quantitative < 0.017 ng/mL (0.000-0.055) UG-Did-K-Type Natriuretic Peptide 2837 pg/mL (0-124) H Total Protein 6.3 g/dL (6.4-8.2) L Albumin 3.9 g/dL (3.4-5.0) Albumin/Globulin Ratio 1.6 (1.0-1.7) Laboratory Tests 11/23/18 18:40 Laboratory Tests 11/23/18 19:15 (BRENTON RUGGIERO) EKG EKG EKG done on arrival, NSR, no STEMI noted. Repeat EKG done, with again NSR, no STEMI noted EKG compared with EKG of May, 2018 with showed the inferior STEMI in II, III and avF. (BRENTON RUGGIERO) Radiology/Procedures Radiology/Procedures CXR neg for acute finding. (BRENTON RUGGIERO) Course & Med Decision Making Course & Med Decision Making Pertinent Labs and Imaging studies reviewed. (See chart for details) PT's blood pressure and pain down with nitro x 3, morphine and N/V resolved with zofran. Pt still reporting mild discomfort in L neck and Fentanyl ordered but then pt reported not needing it. BP down to 140/80's. First set of cardiac enzymes neg but pt has significant hx and this pain today with N/V and diophoresis. Discussed case and reviewed EKGs with ER physician, Dr. Bose and then Dr. Carlin. Will admit to trend enzymes and have pt's diagnostic radiologist, DR. Gutierrez consulted. Pt states she was actually scheduled to see him soon and to have an ECHO tomorrow. Pt's pain controlled at time of admission. Admitted to hospitalist. (BRENTON RUGGIERO) Dragon Disclaimer Dragon Disclaimer This electronic medical record was generated, in whole or in part, using a voice recognition dictation system. (BRENTON RUGGIERO) Departure Departure Impression: Primary Impression: Chest pain Additional Impressions: Hypertension COPD exacerbation Disposition: ADMITTED INPATIENT Condition: IMPROVED Referrals: SANDRA FULLER MD (PCP) Attending Signature Attending Signature I have reviewed the PA/[facility] COMMISSIONER's note and plan of care for Dr. Bose. Dr. Bose was available for consultation as needed at all times during the patient's visit in the emergency department. I agree with the clinical impression, plan and disposition. (ABRAN CARLIN DO) Problem Qualifiers BRENTON RUGGIERO Nov 23, 2018 18:54 ABRAN CARLIN DO Jan 12, 2019 12:02
[2018-11-23] MEDS ORDERED: ONDANSETRON PF 4 MG/2 ML VIAL. ONE (18:55)
[2018-11-23 18:58] LABS: PROTHROMBIN TIME PATIENT 13.7 SEC (11.7-14.0)
[2018-11-23] MEDS: NITROGLYCERIN SUBLINGUAL 0.4 MG BOTTLE OF 25. SL PRN ×4 (18:59→21:16)
[2018-11-23] MEDS ORDERED: ONDANSETRON PF 4 MG/2 ML VIAL. IV ONE (19:00)
[2018-11-23] MEDS ORDERED: ALBUTEROL SULFATE 2.5 MG/3 ML NEBU. NEB ONE (19:15)
[2018-11-23] MEDS ORDERED: ONDANSETRON PF 4 MG/2 ML VIAL. IV PRN (19:45)
[2018-11-23] MEDS ORDERED: fentaNYL PF VIAL 100 MCG/2 ML VIAL IV ONE (19:45)
[2018-11-23] MEDS ORDERED: LABETALOL 20 MG/4 ML DISP.SYRIN. IVP ONE (19:45)
[2018-11-23 19:47] LABS: CALCIUM 9.2 mg/dL (8.5-10.1); CREATININE 0.8 mg/dL (0.6-1.0); GFR 75.9; POTASSIUM 4.3 mmol/L (3.5-5.1)
[2018-11-23 19:54] LABS: ALBUMIN 3.9 g/dL (3.4-5.0); ALBUMIN/GLOBULIN RATIO 1.6 (1.0-1.7); TOTAL BILIRUBIN 0.4 mg/dL (0.2-1.0); TOTAL PROTEIN 6.3 g/dL (6.4-8.2)
[2018-11-23] MEDS ORDERED: LABETALOL 20 MG/4 ML DISP.SYRIN. IVP PRN (20:45)
[2018-11-23] MEDS ORDERED: MORPHINE SULFATE 2 MG/ML VIAL. IV PRN (21:00)
--- NOTE | 2018-11-23 21:00 | NUR ---
Pt was admitted to the unit from ER with c/o chest pain, n/v that started earlier in the day. Pt is A/Ox4, on 2L NC, up adlib and rating her pain at a 7 out of 10. Pt states having a ND in may of 2018, and her symptoms are the same currently at admission. Initial troponin neg, serial trops ordered, H&P completed with pt and at bedside, home medications restarted per Dr. Srinivasan, 5mg of lisinopril and 6.25mg of coreg administered for elevated B/P. Pt is SR/SB on telemetry, call light within reach, bed in low/locked position, will continue to monitor.
[2018-11-23 21:03] VITALS: BP 173/100
[2018-11-23] MEDS ORDERED: NITROGLYCERIN 0.3 MG SL PRN (22:00)
[2018-11-23] MEDS: MORPHINE SULFATE 4 MG/ML VIAL. IV PRN (22:09)
[2018-11-23] MEDS: LISINOPRIL 5 MG TABLET. PO SCH (22:17)
[2018-11-23] MEDS: CARVEDILOL 6.25 MG TABLET. PO SCH (22:17)
[2018-11-23 22:35] VITALS: BP 119/73
[2018-11-24] VITALS (20 sets, daily range): BP systolic 84–212; BP diastolic 54–109
--- NOTE | 2018-11-24 06:21 | EKG ---
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
[2018-11-24] MEDS: IPRATRPIUM/ALBUTEROL 0.5/2.5MG 3 ML NEBU. NEB SCH ×4 (07:22→19:40)
[2018-11-24] MEDS: BUDESONIDE 0.5 MG/2 ML NEBU. NEB SCH ×2 (07:22→19:40)
--- NOTE | 2018-11-24 07:56 | EKG ---
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
[2018-11-24] MEDS ORDERED: CARVEDILOL 6.25 MG TABLET. PO SCH (08:00)
--- NOTE | 2018-11-24 08:00 | RAD ---
Portable chest, 11/23/2018: HISTORY: Chest pain, hypertension Comparison is made to a study from 06/08/2018. The heart size is normal. The lungs appear hyperexpanded. No pulmonary infiltrate is seen. There is no evidence of pleural fluid. IMPRESSION: No acute cardiopulmonary abnormality is detected. Electronically signed by: Willie Virgen MD (11/24/2018 7:57 AM) [facility]
[2018-11-24] MEDS: CLOPIDOGREL BISULFATE 75 MG TABLET PO SCH (08:11)
[2018-11-24] MEDS: CARVEDILOL 6.25 MG TABLET. PO SCH ×2 (08:11→17:00)
[2018-11-24] MEDS: ISOSORBIDE MONONITRATE ER 30 MG TAB.ER.24H PO SCH (08:11)
--- NOTE | 2018-11-24 08:24 | PDOC1 ---
History and Physical Date of Admission Date of Admission DATE: 11/24/18 TIME: 08:20 Identification/Chief Complaint Chief Complaint Chest pain Source Source: Chart review, Patient History of Present Illness History of Present Illness Patient is a 48 year old F who arrives today with complaints of L sided chest pain radiating into her L shoulder and arm. She reports that this morning she had N/V and diaphoresis but went ahead and went to work and then at work developed chest pain that started around 1500. She arrives nauseated and complaining of low back pain as well as the chest pain. Pt does have a hx of an inferior wall ST elevation TN in May,. She is followed by Dr. Gutierrez. Pt took 325mg ASA prior to arrival to ER. She was out of her nitro and states she ran out last week. Pt is very hypertensive and states she normally takes her blood pressure medicine at bedtime. Awoke this morning feeling short of breath and fatigued. She notes a non- productive cough. She has missed no home meds except the NTG. This morning, patient woke up feeling fatigued. Took morning medications and breathing treatment and went back to bed. Initially woke back up feeling better. Went into the bathroom ad began coughing. She sat down, felt diaphoretic. [place] nauseated as well, did not eat at all today. Took BP; 150/97. Treated on 06/04/[address] elevation myocardial infarction and acute on chronic combined systolic and diastolic heart failure. Posterior descending branch of right coronary artery was successfully angioplastied w/o stenting and LVEF of 25%. Follow-up angiography 06/06/18 revealed patent previously angioplastied posterior descending branch of right coronary artery and improvement. Past Medical History Cardiovascular: HTN Pulmonary: Asthma, Bronchitis, COPD Past Surgical History Past Surgical History: No pertinent history Family History Family History: Heart Disease, High Cholestrol, Hypertension Social History Smoke: <1 pack per day ALCOHOL: occassional Drugs: None Current Problem List Problem List Problems Medical Problems: (1) COPD exacerbation Status: Acute (2) Hypertension Status: Acute Current Medications Current Medications Current Medications Nitroglycerin (Nitrostat) 0.4 mg PRN Q5MIN PRN SL CHEST PAIN Last administered on 11/23/18at 21:16; Start 11/23/18 at 18:45 Morphine Sulfate (Morphine Sulfate) 2 mg 1X ONCE IV Last administered on at 18:57; Start 11/23/18 at 18:45; Stop 11/23/18 at 18:47; Status DC Ondansetron HCl (Zofran) 4 mg 1X ONCE IV Last administered on 11/23/18at 18:57 ; Start 11/23/18 at 19:00; Stop 11/23/18 at 19:01; Status DC Ondansetron HCl (Zofran) 4 mg STK-MED ONCE .ROUTE ; Start 11/23/18 at 18:55; Stop 11/23/18 at 18:56; Status DC Albuterol Sulfate (Ventolin Neb Soln) 2.5 mg 1X ONCE NEB Last administered on 11/23/18at 19:58; Start 11/23/18 at 19:15; Stop 11/23/18 at 19:16; Status DC Morphine Sulfate (Morphine Sulfate) 2 mg 1X ONCE IV Last administered on at 19:23; Start 11/23/18 at 19:15; Stop 11/23/18 at 19:16; Status DC Labetalol HCl (Normodyne Iv Push) 10 mg 1X ONCE IVP ; Start 11/23/18 at 19:45; Stop 11/23/18 at 19:46; Status DC Fentanyl Citrate (Fentanyl 2ml Vial) 50 mcg 1X ONCE IV ; Start 11/23/18 at 19: 45; Stop 11/23/18 at 19:46; Status DC Ondansetron HCl (Zofran) 4 mg PRN Q8HRS PRN IV NAUSEA/VOMITING Last administered on 11/24/18at 04:09; Start 11/23/18 at 19:45; Stop 11/24/18 at 19:44 Labetalol HCl (Normodyne Iv Push) 10 mg PRN Q2HR PRN IVP HYPERTENSION, SEE COMMENTS Last administered on 11/23/18at 20:47; Start 11/23/18 at 20:45 Morphine Sulfate (Morphine Sulfate) 2 mg PRN Q2HR PRN IV PAIN; Start 11/23/18 at 21:00; Status Cancel Morphine Sulfate (Morphine Sulfate) 4 mg PRN Q4HRS PRN IV PAIN Last administered on 11/23/18at 22:09; Start 11/23/18 at 21:00 Carvedilol (Coreg) 6.25 mg BIDWMEALS PO ; Start 11/24/18 at 08:00; Stop at 08:00; Status DC Clopidogrel Bisulfate (Plavix) 75 mg DAILYWBKFT PO Last administered on 08:11; Start 11/24/18 at 08:00 Isosorbide Mononitrate (Imdur) 60 mg DAILY PO Last administered on 11/24/18at 08 :11; Start 11/24/18 at 09:00 Lisinopril (Prinivil) 5 mg DAILY PO ; Start 11/24/18 at 09:00; Stop 11/24/18 at 09:00; Status DC Non-Formulary Medication (Nitroglycerin ) 0.3 mg q3-5min PRN SL CHEST PAIN; Start 11/23/18 at 22:00; Status UNV Albuterol/ Ipratropium (Duoneb) 3 ml RTQID NEB Last administered on 11/24/18at 07:22; Start 11/24/18 at 08:00 Budesonide (Pulmicort) 0.5 mg RTBID NEB Last administered on 11/24/18 07:22; Start 11/24/18 at 08:00 Carvedilol (Coreg) 6.25 mg BIDWMEALS PO Last administered on 11/24/18at 08:11; Start 11/23/18 at 22:15 Lisinopril (Prinivil) 5 mg DAILYWSUP PO Last administered on 11/23/18at 22:17; Start 11/23/18 at 22:15 Active Scripts Active Clopidogrel (Clopidogrel Bisulfate) 75 Mg Tablet 75 Mg PO DAILYWBKFT 30 Days Carvedilol (Carvedilol) 6.25 Mg Tablet 6.25 Mg PO BIDWMEALS 30 Days Lisinopril 5 Mg Tablet 5 Mg PO DAILY 30 Days Reported Isosorbide Mononitrate Er (Isosorbide Mononitrate) 30 Mg Tab.er.24h 60 Mg PO DAILY Nitroglycerin 0.3 Mg Tab.subl 0.3 Mg SL Q3-5MIN PRN Allergies Allergies: Coded Allergies: No Known Drug Allergies (Unverified , 02/15/14) ROS General: YES: Fatigue, Malaise; No: Chills, Night Sweats, Appetite, Other PSYCHOLOGICAL ROS: No: Anxiety, Behavioral Disorder, Concentration difficultie , Decreased libido, Depression, Disorientation, Hallucinations, Hostility, Irritablity, Memory difficulties, Mood Swings, Obsessive thoughts, Physical abuse, Sexual abuse, Sleep disturbances, Suicidal ideation, Other Eyes: No Blurry vision, No Decreased vision, No Double vision, No Dry eyes, No Excessive tearing, No Eye Pain, No Itchy Eyes, No Loss of vision, No Photophobia , No Scotomata, No Uses contacts, No Uses glasses, No Other HEENT: No: Heacaches, Visual Changes, Hearing change, Nasal congestion, Nasal discharge, Oral lesions, Sinus pain, Sore Throat, Epistaxis, Sneezing, Snoring, Tinnitus, Vertigo, Vocal changes, Other ALLERGY AND IMMUNOLOGY: No: Hives, Insect Bite Sensitivity, Itchy/Watery Eyes, Nasal Congestion, Post Nasal Drip, Seasonal Allergies, Other Hematological and Lymphatic: No: Bleeding Problems, Blood Clots, Blood Transfusions, Brusing, Night Sweats, Pallor, Swollen Lymph Nodes, Other ENDOCRINE: No: Breast Changes, Galactorrhea, Hair Pattern Changes, Hot Flashes , Malaise/lethargy, Mood Swings, Palpitations, Polydipsia/polyuria, Skin Changes , Temperature Intolerance, Unexpected Weight Changes, Other Breast: No New/Changing Breast Lumps, No Nipple changes, No Nipple discharge, No Other Respiratory: No: Cough, Hemoptysis, Orthopnea, Pleuritic Pain, Shortness of breath, SOB with excertion, Sputum Changes, Stridor, Tachypnea, Wheezing, Other Cardiovascular: yes Chest Pain; No Palpitations, No Orthopnea, No Paroxysmal Noc. Dyspnea, No Edema, No Lt Headedness, No Other Gastrointestinal: Yes Nausea; No Vomiting, No Abdominal Pain, No Diarrhea, No Constipation, No Melena, No Hematochezia, No Other Genitourinary: No Dysuria, No Frequency, No Incontinence, No Hematuria, No Retention, No Discharge, No Urgency, No Pain, No Flank Pain, No Other, No , No , No , No , No , No , No Musculoskeletal: No Gait Disturbance, No Joint Pain, No Joint Stiffness, No Joint Swelling, No Muscle Pain, No Muscular Weakness, No Pain In:, No Swelling In:, No Other Neurological: No Behavorial Changes, No Bowel/Bladder ControlChng, No Confusion , No Dizziness, No Gait Disturbance, No Headaches, No Impaired Coord/balance, No Memory Loss, No Numbness/Tingling, No Seizures, No Speech Problems, No Tremors, No Visual Changes, No Weakness, No Other Skin: No Dry Skin, No Eczema, No Hair Changes, No Lumps, No Mole Changes, No Mottling, No Nail Changes, No Pruritus, No Rash, No Skin Lesion Changes, No Other, No Acne Physical Exam General: Alert, Oriented X3, Cooperative, No acute distress HEENT: Atraumatic, PERRLA, EOMI, Mucous membr. moist/pink Abdomen: Normal bowel sounds, Soft, No tenderness, No hepatosplenomegaly, No masses Extremities: No clubbing, No cyanosis, No edema, Normal pulses, No tenderness/ swelling Skin: No rashes, No breakdown, No significant lesion Neuro: Normal gait, Normal speech, Strength at 5/5 X4 ext, Normal tone, Sensation intact, Cranial nerves 3-12 NL, Reflexes 2+ Psych/Mental Status: Mental status NL, Mood NL Vitals Vitals Vital Signs Date Time Temp Pulse Resp B/P (MAP) Pulse Ox O2 Delivery O2 Flow Rate FiO2 11/24/18 08:16 52 212/109 (143) 11/24/18 07:23 97 Room Air 11/24/18 07:00 97.2 18 97.2 11/24/18 02:31 2.0 Labs Labs Laboratory Tests Test 11/23/18 18:40 11/23/18 18:42 11/23/18 19:15 11/24/18 01:00 White Blood Count 10.9 x10^3/uL (4.0-11.0) Red Blood Count 5.23 x10^6/uL (3.50-5.40) Hemoglobin 12.3 g/dL (12.0-15.5) Hematocrit 38.4 % (36.0-47.0) Mean Corpuscular Volume 74 fL (79-100) Mean Corpuscular Hemoglobin 23 pg (25-35) Mean Corpuscular Hemoglobin Concent 32 g/dL (31-37) Red Cell Distribution Width 19.0 % (11.5-14.5) Platelet Count 371 x10^3/uL (140-400) Neutrophils (%) (Auto) 62 % (31-73) Lymphocytes (%) (Auto) 31 % (24-48) Monocytes (%) (Auto) 6 % (0-9) Eosinophils (%) (Auto) 1 % (0-3) Basophils (%) (Auto) 1 % (0-3) Neutrophils # (Auto) 6.7 x10^3uL (1.8-7.7) Lymphocytes # (Auto) 3.4 x10^3/uL (1.0-4.8) Monocytes # (Auto) 0.6 x10^3/uL (0.0-1.1) Eosinophils # (Auto) 0.1 x10^3/uL (0.0-0.7) Basophils # (Auto) 0.1 x10^3/uL (0.0-0.2) Prothrombin Time 13.7 SEC (11.7-14.0) Prothromb Time International Ratio 1.1 (0.8-1.1) Bedside Troponin I 0.01 ng/ml (<0.08) Sodium Level 139 mmol/L (136-145) Potassium Level 4.3 mmol/L (3.5-5.1) Chloride Level 103 mmol/L (98-107) Carbon Dioxide Level 24 mmol/L (21-32) Anion Gap 12 (6-14) Blood Urea Nitrogen 11 mg/dL (7-20) Creatinine 0.8 mg/dL (0.6-1.0) Estimated GFR (Cockcroft-Gault) 75.9 BUN/Creatinine Ratio 14 (6-20) Glucose Level 103 mg/dL (70-99) Calcium Level 9.2 mg/dL (8.5-10.1) Total Bilirubin 0.4 mg/dL (0.2-1.0) Aspartate Amino Transf (AST/SGOT) 18 U/L (15-37) Alanine Aminotransferase (ALT/SGPT) 15 U/L (14-59) Alkaline Phosphatase 56 U/L (46-116) Creatine Kinase 82 U/L (26-192) Creatine Kinase MB (Mass) 1.7 ng/mL (0.0-3.6) Creatine Kinase MB Relative Index 2.1 % (0-4) Troponin I Quantitative < 0.017 ng/mL (0.000-0.055) 0.026 ng/mL (0.000-0.055) XD-Pty-J-Type Natriuretic Peptide 2837 pg/mL (0-124) Total Protein 6.3 g/dL (6.4-8.2) Albumin 3.9 g/dL (3.4-5.0) Albumin/Globulin Ratio 1.6 (1.0-1.7) Laboratory Tests Test 11/23/18 18:40 11/23/18 18:42 11/23/18 19:15 11/24/18 01:00 White Blood Count 10.9 x10^3/uL (4.0-11.0) Red Blood Count 5.23 x10^6/uL (3.50-5.40) Hemoglobin 12.3 g/dL (12.0-15.5) Hematocrit 38.4 % (36.0-47.0) Mean Corpuscular Volume 74 fL (79-100) Mean Corpuscular Hemoglobin 23 pg (25-35) Mean Corpuscular Hemoglobin Concent 32 g/dL (31-37) Red Cell Distribution Width 19.0 % (11.5-14.5) Platelet Count 371 x10^3/uL (140-400) Neutrophils (%) (Auto) 62 % (31-73) Lymphocytes (%) (Auto) 31 % (24-48) Monocytes (%) (Auto) 6 % (0-9) Eosinophils (%) (Auto) 1 % (0-3) Basophils (%) (Auto) 1 % (0-3) Neutrophils # (Auto) 6.7 x10^3uL (1.8-7.7) Lymphocytes # (Auto) 3.4 x10^3/uL (1.0-4.8) Monocytes # (Auto) 0.6 x10^3/uL (0.0-1.1) Eosinophils # (Auto) 0.1 x10^3/uL (0.0-0.7) Basophils # (Auto) 0.1 x10^3/uL (0.0-0.2) Prothrombin Time 13.7 SEC (11.7-14.0) Prothromb Time International Ratio 1.1 (0.8-1.1) Bedside Troponin I 0.01 ng/ml (<0.08) Sodium Level 139 mmol/L (136-145) Potassium Level 4.3 mmol/L (3.5-5.1) Chloride Level 103 mmol/L (98-107) Carbon Dioxide Level 24 mmol/L (21-32) Anion Gap 12 (6-14) Blood Urea Nitrogen 11 mg/dL (7-20) Creatinine 0.8 mg/dL (0.6-1.0) Estimated GFR (Cockcroft-Gault) 75.9 BUN/Creatinine Ratio 14 (6-20) Glucose Level 103 mg/dL (70-99) Calcium Level 9.2 mg/dL (8.5-10.1) Total Bilirubin 0.4 mg/dL (0.2-1.0) Aspartate Amino Transf (AST/SGOT) 18 U/L (15-37) Alanine Aminotransferase (ALT/SGPT) 15 U/L (14-59) Alkaline Phosphatase 56 U/L (46-116) Creatine Kinase 82 U/L (26-192) Creatine Kinase MB (Mass) 1.7 ng/mL (0.0-3.6) Creatine Kinase MB Relative Index 2.1 % (0-4) Troponin I Quantitative < 0.017 ng/mL (0.000-0.055) 0.026 ng/mL (0.000-0.055) AS-Xdw-S-Type Natriuretic Peptide 2837 pg/mL (0-124) Total Protein 6.3 g/dL (6.4-8.2) Albumin 3.9 g/dL (3.4-5.0) Albumin/Globulin Ratio 1.6 (1.0-1.7) Images Images CXR - no acute pulm abnormality VTE Prophylaxis Ordered VTE Prophylaxis Devices: No VTE Pharmacological Prophylaxi: Yes Assessment/Plan Assessment/Plan Chest pain - with high risk history. 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 Follow-up cath 06/06/18 with improvement in previously described lesions confirming vasospasms. RCA patent. 06/06/18 troponin was 62 down from peak of 110 Combined chronic diastolic and systolic HF with EF 25% - uncertain degree of compensation today, seems euvolemic, but her symptoms imply mild diastolic heart failure currently Cardiomyopathy - LVEF 25% on angiogram. Consult cardiology, echo. Likely is Tak[place]ubo Hypertension - controlled, will monitor COPD - will add nebulizers, offered nicotine patch, she states she will request this Anxiety - likely related to her recent [place], will add low dose lorazepam Celiac dz - could be having some celiac symptoms, notes poor dietary compliance Moderate protein calorie malnutrition - with celiac disease, needs dietary compliance FEN - Cardiac diet PPX - heparin FULL CODE Inpatient high risk ACS, if clean cath, could go home KIMBERLY ORR MD Nov 24, 2018 08:24
--- NOTE | 2018-11-24 08:26 | PDOC2 ---
TAYLER KRUSE [employer] TURNER 11/24/18 0826: CARDIAC CONSULT DATE OF CONSULT Date of Consult DATE: 11/24/18 TIME: 08:13 REASON FOR CONSULT Reason for Consult: Chest pain REFERRING PHYSICIAN Referring Physician: Dr. Bryson SOURCE Source: Chart review, Patient HISTORY OF PRESENT ILLNESS HISTORY OF PRESENT ILLNESS This is a 48 yo female, with a history of CAD- presented as an inferior STEMI - s/p PTCA to the [facility] 06/04/18, who presented with complaints of chest pain. Patient reports having frequent chest pains over the last couple of months. Has been taking nitroglycerin SL nearly daily, up to 3 tabs, for chest pain. Ran out of nitro last week. Has been off work since STEMI. Returned to work at [employer] a month ago and reports difficulty working due to chest pain ad shortness of breath. Reports chest pain generally occurs with exertion, resolves with rest and nitro. Located in her central chest. Describes as heaviness/pressure. Associated with shortness of breath, feeling flushing, and diaphoresis. Ran out of all medications and was unable to afford to get them refilled about 3 weeks ago. Was able to get them refilled last week and has been compliant since. Is anxious/tearful presently as feels she is "faking it". PAST MEDICAL HISTORY Cardiovascular: CAD, CHF, HTN, [place] (Inferior STEMI 05/2018) Pulmonary: COPD GI: No pertinent hx, Other (Celiac Dx) Heme/Onc: No pertinent hx Psych: Anxiety Musculoskeletal: Osteoarthritis Rheumatologic: No pertinent hx Infectious disease: No pertinent hx ENT: No pertinent hx Renal/: No pertinent hx Endocrine: No pertinent hx Dermatology: No pertinent hx PAST SURGICAL HISTORY Past Surgical History: Other (PTCA to PDA 05/2018) FAMILY HISTORY Family History: Coronary Artery Disease SOCIAL HISTORY Smoke: <1 pack per day (initially quit, but began again recently ) ALCOHOL: none Drugs: None Lives: with Family CURRENT MEDICATIONS CURRENT MEDICATIONS Current Medications Medications (Trade) Dose Ordered Sig/Kwesi Route PRN Reason Start Time Stop Time Status Last Admin Dose Admin Nitroglycerin (Nitrostat) 0.4 mg PRN Q5MIN PRN SL CHEST PAIN 11/23/18 18:45 11/23/18 21:16 Morphine Sulfate (Morphine Sulfate) 2 mg 1X ONCE IV 11/23/18 18:45 11/23/18 18:47 DC 11/23/18 18:57 Ondansetron HCl (Zofran) 4 mg 1X ONCE IV 11/23/18 19:00 11/23/18 19:01 DC 11/23/18 18:57 Albuterol Sulfate (Ventolin Neb Soln) 2.5 mg 1X ONCE NEB 11/23/18 19:15 11/23/18 19:16 DC 11/23/18 19:58 Morphine Sulfate (Morphine Sulfate) 2 mg 1X ONCE IV 11/23/18 19:15 11/23/18 19:16 DC 11/23/18 19:23 Ondansetron HCl (Zofran) 4 mg PRN Q8HRS PRN IV NAUSEA/VOMITING 11/23/18 19:45 11/24/18 19:44 11/24/18 04:09 Labetalol HCl (Normodyne Iv Push) 10 mg PRN Q2HR PRN IVP HYPERTENSION, SEE COMMENTS 11/23/18 20:45 11/23/18 20:47 Morphine Sulfate (Morphine Sulfate) 4 mg PRN Q4HRS PRN IV PAIN 11/23/18 21:00 11/23/18 22:09 Clopidogrel Bisulfate (Plavix) 75 mg DAILYWBKFT PO 11/24/18 08:00 11/24/18 08:11 Isosorbide Mononitrate (Imdur) 60 mg DAILY PO 11/24/18 09:00 11/24/18 08:11 Albuterol/ Ipratropium (Duoneb) 3 ml RTQID NEB 11/24/18 08:00 11/24/18 07:22 Budesonide (Pulmicort) 0.5 mg RTBID NEB 11/24/18 08:00 11/24/18 07:22 Carvedilol (Coreg) 6.25 mg BIDWMEALS PO 11/23/18 22:15 11/24/18 08:11 Lisinopril (Prinivil) 5 mg DAILYWSUP PO 11/23/18 22:15 11/23/18 22:17 ALLERGIES ALLERGIES: Coded Allergies: No Known Drug Allergies (Unverified , 02/15/14) ROS Review of System 14 point ROS conducted with pertinent positives noted above in HPI. PHYSICAL EXAM General: Alert, Oriented X3, Cooperative, No acute distress HEENT: Atraumatic Lungs: Clear to auscultation, Normal air movement Heart: Regular rate, Normal S1, Normal S2 Abdomen: Soft, No tenderness Extremities: No edema, Normal pulses Skin: No breakdown, No significant lesion Neuro: Normal speech, Sensation intact Psych/Mental Status: Other (ancious, tearful) MUSCULOSKELETAL: No deformity VITALS VITALS Vital Signs Date Time Temp Pulse Resp B/P (MAP) Pulse Ox O2 Delivery O2 Flow Rate FiO2 11/24/18 08:11 65 11/24/18 07:23 97 Room Air 11/24/18 07:00 97.2 18 124/108 (113) 97.2 11/24/18 02:31 2.0 LABS Lab: Laboratory Tests Test 11/23/18 18:40 11/23/18 18:42 11/23/18 19:15 11/24/18 01:00 White Blood Count 10.9 x10^3/uL (4.0-11.0) Red Blood Count 5.23 x10^6/uL (3.50-5.40) Hemoglobin 12.3 g/dL (12.0-15.5) Hematocrit 38.4 % (36.0-47.0) Mean Corpuscular Volume 74 fL (79-100) Mean Corpuscular Hemoglobin 23 pg (25-35) Mean Corpuscular Hemoglobin Concent 32 g/dL (31-37) Red Cell Distribution Width 19.0 % (11.5-14.5) Platelet Count 371 x10^3/uL (140-400) Neutrophils (%) (Auto) 62 % (31-73) Lymphocytes (%) (Auto) 31 % (24-48) Monocytes (%) (Auto) 6 % (0-9) Eosinophils (%) (Auto) 1 % (0-3) Basophils (%) (Auto) 1 % (0-3) Neutrophils # (Auto) 6.7 x10^3uL (1.8-7.7) Lymphocytes # (Auto) 3.4 x10^3/uL (1.0-4.8) Monocytes # (Auto) 0.6 x10^3/uL (0.0-1.1) Eosinophils # (Auto) 0.1 x10^3/uL (0.0-0.7) Basophils # (Auto) 0.1 x10^3/uL (0.0-0.2) Prothrombin Time 13.7 SEC (11.7-14.0) Prothromb Time International Ratio 1.1 (0.8-1.1) Bedside Troponin I 0.01 ng/ml (<0.08) Sodium Level 139 mmol/L (136-145) Potassium Level 4.3 mmol/L (3.5-5.1) Chloride Level 103 mmol/L (98-107) Carbon Dioxide Level 24 mmol/L (21-32) Anion Gap 12 (6-14) Blood Urea Nitrogen 11 mg/dL (7-20) Creatinine 0.8 mg/dL (0.6-1.0) Estimated GFR (Cockcroft-Gault) 75.9 BUN/Creatinine Ratio 14 (6-20) Glucose Level 103 mg/dL (70-99) Calcium Level 9.2 mg/dL (8.5-10.1) Total Bilirubin 0.4 mg/dL (0.2-1.0) Aspartate Amino Transf (AST/SGOT) 18 U/L (15-37) Alanine Aminotransferase (ALT/SGPT) 15 U/L (14-59) Alkaline Phosphatase 56 U/L (46-116) Creatine Kinase 82 U/L (26-192) Creatine Kinase MB (Mass) 1.7 ng/mL (0.0-3.6) Creatine Kinase MB Relative Index 2.1 % (0-4) Troponin I Quantitative < 0.017 ng/mL (0.000-0.055) 0.026 ng/mL (0.000-0.055) ZO-Bsd-Q-Type Natriuretic Peptide 2837 pg/mL (0-124) Total Protein 6.3 g/dL (6.4-8.2) Albumin 3.9 g/dL (3.4-5.0) Albumin/Globulin Ratio 1.6 (1.0-1.7) HEART CATH HEART CATH FINDINGS 1. Hemodynamics: Elevated left ventricle end-diastolic pressure of 24 mmHg consistent with acute on chronic diastolic and systolic heart failure. No pullback gradient across the aortic valve. 2. Left ventriculography: Severe hypokinesis of mid to distal myocardial segments with normally functioning basal segments, pattern consistent with Takotsubo's cardiomyopathy. The ejection fraction estimated at 25%. 1+ mitral regurgitation seen. 3. Coronary angiography: a. The left main coronary artery arose from the left sinus of Valsalva, gave rise to the left and 2 descending, ramus intermedius and left circumflex arteries and did not show any significant stenosis. b. The left anterior descending artery showed 40% stenosis in the midsegment and 50% stenosis in the distal segment. c. The ramus intermedius artery showed 90% stenosis in the proximal segment. d. The left circumflex artery did not show any significant stenosis. e. The right coronary artery was a dominant vessel arising from the right sinus of Valsalva and showed calcified 40% stenosis in the midsegment. The posterior descending branch which is a small to medium caliber vessel showed 99 % stenosis in a tortuous midsegment. Conclusion 1. 99% stenosis involving the posterior descending branch of right coronary artery and 90% stenosis involving the ramus intermedius artery. 2. Severe hypokinesis of mid to distal myocardial segments with normally functioning basal segments, pattern consistent with Takotsubo's cardiomyopathy. The ejection fraction estimated at 25%. 3. Successful balloon PTCA to the posterior descending branch of right coronary artery. Recommendations 1. Aspirin 325 mg daily 2. Plavix 75 mg daily for preferably one year 3. Cardiovascular risk factor modification including smoking cessation 4. Start intravenous nitroglycerin drip and consider repeating coronary angiography prior to discharge to look for any change in the ramus intermedius artery lesion. If there is no improvement, we will consider intervening on this lesion prior to discharge. DATE: 06/05/18 1038 FINDINGS 1. Hemodynamics: Left ventricular end-diastolic pressure of 9 mmHg. No pullback gradient across the aortic valve. 2. Coronary angiography: a. The left main coronary artery arose from the left sinus of Valsalva, gave rise to the left anterior descending, ramus intermedius and left circumflex arteries and did not show any significant stenosis. b. The left anterior descending artery showed 30% stenosis in the midsegment and 30% stenosis in the distal segment, slightly improved from prior cardiac catheterization. c. The left circumflex artery did not show any significant stenosis. d. The ramus intermedius artery showed 90% stenosis in the proximal segment. However, this is a small to medium caliber vessel distally. e. The right coronary artery was a large and dominant vessel arising from the right sinus of Valsalva that showed 40% stenosis in the midsegment. The recently angioplastied posterior descending artery was patent with increase in the size of the vessel distally confirming that patient had vasospasm on prior cardiac catheterization. Conclusion Patent previously angioplastied posterior descending branch of right coronary artery. Improvement in previously described lesions confirming coronary artery vasospasm. This is consistent with the clinical picture of Takotsubo's cardiomyopathy. The ramus intermedius branch showed significant stenosis in the proximal segment is a small to medium caliber vessel distally and can be managed medically. Recommendations Medical Therapy DATE: 06/06/18 1727 ASSESSMENT/PLAN ASSESSMENT/PLAN 1. Chest pain, mixed features. AMI ruled out. Has been taking SL nitro daily for the for the last month, which resolves pain. 2. CAD; inferior STEMI 05/2018; s/p PTCA to PDA 06/04/18 and with ramus 90% lesion noted small vessel being treated medically. 3. Malignant hypertension; better controlled 4. Chronic combined diastolic and systolic CHF; compensated 5. Takotsubo's cardiomyopathy; LVEF previously 25% 6. COPD Recommendations Lipids Echo to assess LV systolic function Resume ASA, Plavix, Imdur, lisinopril, coreg, and statin therapy Monitor BP- threapy titration as warranted. Hydralazine IV PRN Given h/o CAD/vasospasms, risk factors, and symptomatology, will proceed with cardiac cath for definitive evaluation. R/b/a discussed with patient and she is agreeable. Consider addition of Ranexa If LVEF continues to be significantly depressed on echo, will plan for AICD implantation, on an inpatient basis, in primary prevention of SCD MARIA VICTORIA JENNINGS MD 11/24/187: CARDIAC CONSULT ASSESSMENT/PLAN ASSESSMENT/PLAN Patient seen and examined. Agree with PRETZEL TWISTING MACHINE OPERATOR's assessment and plan. Recurrent CP with mixed features. [place] ruled out. Plan cardiac cath for definitive evaluation Chr systolic HF compensated Repeat echo to assess LVF Thank you for your consultation TAYLER KRUSE APRN Nov 24, 2018 08:26 MARIA VICTORIA JENNINGS MD Nov 24, 2018 18:17
[2018-11-24] MEDS: MORPHINE SULFATE 4 MG/ML VIAL. IV PRN ×2 (08:39→20:57)
[2018-11-24] MEDS ORDERED: LISINOPRIL 5 MG TABLET. PO SCH (09:00)
[2018-11-24 09:04] LABS: CHOLESTEROL/HDL RATIO 4.4
[2018-11-24] MEDS ORDERED: IOHEXOL 300 MG/ML 100ML VIAL. ONE ×2 (12:30→13:20)
[2018-11-24] MEDS ORDERED: LIDOCAINE 1% PF 2 ML VIAL. ONE (12:30)
[2018-11-24] MEDS ORDERED: fentaNYL PF VIAL 100 MCG/2 ML VIAL ONE ×2 (12:33→13:43)
[2018-11-24] MEDS ORDERED: VERAPAMIL 5 MG/2 ML VIAL. ONE (12:34)
[2018-11-24] MEDS ORDERED: HEPARIN for IV BOLUS 10,000 UNIT/10 ML VIAL. ONE (12:34)
[2018-11-24] MEDS ORDERED: NITROGLYCERIN 200 MCG/2 ML SYRINGE FOR CATH/VASC LAB. ONE ×3 (12:34→13:52)
[2018-11-24] MEDS ORDERED: MIDAZOLAM HCL/PF 2 MG/2 ML VIAL. ONE ×2 (12:34→13:43)
[2018-11-24] MEDS ORDERED: IODIXANOL 320 MG/ML 100 ML VIAL. IART ONE (12:45)
[2018-11-24] MEDS ORDERED: MIDAZOLAM HCL/PF 2 MG/2 ML VIAL. IV ONE (12:45)
[2018-11-24] MEDS ORDERED: fentaNYL PF VIAL 100 MCG/2 ML VIAL IV ONE (12:45)
[2018-11-24] MEDS ORDERED: VERAPAMIL 5 MG/2 ML VIAL. IART ONE ×2 (12:45→13:45)
[2018-11-24] MEDS ORDERED: NITROGLYCERIN 200 MCG/2 ML SYRINGE FOR CATH/VASC LAB. IART ONE ×2 (12:45→13:45)
[2018-11-24] MEDS ORDERED: HEPARIN for IV BOLUS 10,000 UNIT/10 ML VIAL. IART ONE (12:45)
[2018-11-24] MEDS ORDERED: LIDOCAINE 1% PF 2 ML VIAL. INJ ONE (12:45)
--- NOTE | 2018-11-24 12:46 | NUR ---
SS following for discharge planning. SS reviewed pt chart. Pt is from home with spouse and is currently on room air. No discharge needs noted at this time. SS will continue to follow for discharge planning.
[2018-11-24] MEDS ORDERED: CONTRAST GIVEN. MC PRN ×2 (13:00→13:45)
[2018-11-24] MEDS ORDERED: BIVALIRUDIN 250 MG VIAL. IV ONE ×2 (13:24→13:45)
[2018-11-24] MEDS ORDERED: IOHEXOL 300 MG/ML 100ML VIAL. IART ONE (13:45)
[2018-11-24] MEDS ORDERED: ASPIRIN 325 MG TABLET ONE (13:56)
--- NOTE | 2018-11-24 13:59 | PDOC ---
MODERATE SEDATION ASSESSMENT RISKS/ALTERNATIVES Risks/Alternatives Risks and alternatives of this type of sedation and procedure discussed with: RISK/ALTERNATIVES: Patient H & P ON CHART H & P H & P on chart and reviewed for co-morbid conditions and appropriate labs. H&P ON CHART: Yes STATUS PREG STATUS ASSESSED: N/A MEDS/ALLERGIES REVIEWED Meds/Allergies Reviewed Medications and Allergies including time and route of recently administered narcotics and sedatives. MEDS/ALLERGIES REVIEWED: Yes ASA RATING ASA RATING: II AIRWAY ASSESSMENT Airway Assessment Airway patency, oral function limitations, presence of caps, crowns, dentures, partials, and ability to extend neck assessed. AIRWAY ASSESSMENT: Yes MALLAMPATI SCORE MALLAMPATI SCORE: II PRE-SEDATION ASSESSMENT PRE-SEDATION ASSESSMENT: Yes MARIA VICTORIA JENNINGS MD Nov 24, 2018 13:59
[2018-11-24] MEDS ORDERED: ASPIRIN 325 MG TABLET PO ONE (14:00)
--- NOTE | 2018-11-24 14:25 | CARD ---
MR#: [id number] Date of Study: 11/24/2018 Ordering Physician: KIMBERLY ORR, Referring Physician: KIMBERLY ORR, Tech: CAMILLE KNOX RTR APPROVED REPORT Technologist: CAMILLE KNOX RTR Nurse: Sarah Hernandez RN Procedure(s) performed: 1. Left heart catheterization, selective coronary angiography via right trans radial approach 2. Instant wave free ratio (IFR) measurement to left anterior descending and right coronary artery st enoses 3. Successful PCI/drug eluting stent placement to the left anterior descending artery, successful PTC A to the diagonal branch Moderate sedation:60 minutes Fluoro time: 18.3 Dose: [id number] Contrast:224 ml INDICATION The indication(s) include : For unstable angina. [facility] Clinical Frailty Scale [facility] Clinical Frailty Scale: Very Fit Heart Failure Heart Failure: No PROCEDURE NARRATIVE After explaining the risks, benefits and alternative options, informed consent was obtained from saad ent. Patient was brought to the cardiac Learning And Development Analyst and right wrist was prepped and draped in the usual fashion after confirming a positive modified Jimmy's test. Arterial access was obtained in the righ t radial artery and a 6 Chinese sheath was inserted. 6 Chinese Sean catheter was used to perform onva ective angiography of the left and right coronary arteries. LVEDP and transaortic gradients remeasure d. Since patient was found to have angiographically borderline stenoses involving the right coronary and left anterior descending arteries a decision was made to perform Instant wave free ratio (IFR) me asurement to assess physiologic significance. The stenosis in the right coronary artery was crossed w ith [place] verrata PressureWire and IFR measurement was made which was insignificant at 1.0. The les ion in the midsegment of the left anterior descending artery was crossed with the PressureWire and IF R measurement was made that was physiologically very significant at 0.63. FINDINGS 1. Hemodynamics: Left ventricular end-diastolic pressure of 15 mmHg. No pullback gradient across th e aortic valve. 2. Coronary angiography: a. The left main coronary artery arose from the left sinus of Valsalva, gave rise to the left anteri or descending, ramus intermedius and left circumflex arteries and did not show any significant stenos is. b. The left anterior descending artery showed 60-70% stenosis in the midsegment there was physiologi karma significant based on IFR measurement of 0.63 and 90% stenosis in the distal segment. The diagon al branch showed 60% stenosis in the proximal to midsegment. c. The left circumflex artery did not show any significant stenosis. d. The ramus intermedius artery was a small to medium caliber vessel that showed 90% stenosis in the proximal segment, described in prior cardiac catheterization. e. The right coronary artery was a dominant vessel arising from the right sinus of Valsalva that justin wed 50% stenosis in the proximal segment that was physiologically insignificant based on IFR measurem ent to 1.0 and 30% stenosis in the midsegment. The posterior descending branch that was angioplastied in the past showed 100% chronic total occlusion in the midsegment with distal reconstitution from ri ght to right collaterals. INTERVENTION The left main coronary artery was engaged with 6 Chinese XB 3.5 guide catheter and the stenoses in the mid and distal segments of the left anterior descending artery were crossed with a 0.014 inch [employer] Pro water guidewire. These with predilated with a 2.5 x 12 mm trek balloon. The distal segment stenos is was then treated with a 2.5 x 12 mm Xience Alpine drug eluting stent. The midsegment stenosis was treated with a 3.0 x 15 mm Xience Alpine drug-eluting stent. The stent struts were then crossed into the diagonal branch with the same Pro water guidewire and the stent struts were dilated into the diag onal branch using a 2.5 x 8 mm noncompliant NC trek balloon. Follow-up angiorrhaphy showed resolution of the stenoses to 0% with NENA-3 distal flow. Patient tolerated the procedure well. Hemostasis was achieved using TR band. There were no immediate complications. NENA Flow NENA Flow (Pre-Intervention): NENA-3 NENA Flow (Post-Intervention): NENA-3 Conclusion 1. 60-70% stenosis involving the midsegment of the left anterior descending artery with significant IFR measurement of 0.63, 90% stenosis involving the distal segment of LAD. The right coronary artery showed 50% stenosis in the proximal segment with insignificant IFR 01.0. The ramus intermedius artery is a small to medium caliber vessel that showed 90% stenosis in the proximal segment, described in p wenceslaor cardiac catheterization. The left circumflex artery did not show any significant stenosis. 2. Successful PCI/drug eluting stents placement to the left anterior descending artery and successfu l PTCA to the diagonal branch. Recommendations 1. Aspirin 325 mg daily 2. Plavix 75 mg daily for preferably one year 3. Cardiovascular risk factor modification Signed by : Robert Gutierrez, Electronically Approved : 11/24/2018 14:24:38
[2018-11-24] MEDS: LISINOPRIL 5 MG TABLET. PO SCH (17:00)
[2018-11-25 03:15] VITALS: BP 107/58
[2018-11-25 07:46] VITALS: BP 131/80
[2018-11-25] MEDS: BUDESONIDE 0.5 MG/2 ML NEBU. NEB SCH (07:56)
[2018-11-25] MEDS: IPRATRPIUM/ALBUTEROL 0.5/2.5MG 3 ML NEBU. NEB SCH ×3 (07:56→15:46)
[2018-11-25] MEDS: MORPHINE SULFATE 4 MG/ML VIAL. IV PRN (07:58)
[2018-11-25] MEDS: CARVEDILOL 6.25 MG TABLET. PO SCH (09:20)
[2018-11-25] MEDS: CLOPIDOGREL BISULFATE 75 MG TABLET PO SCH (09:21)
[2018-11-25] MEDS: ISOSORBIDE MONONITRATE ER 30 MG TAB.ER.24H PO SCH (10:34)
--- NOTE | 2018-11-25 11:16 | NUR ---
FACULTY CO-SIGN I have reviewed the documentation by executive director of nursing: Addendum: 11/25/18 at 1117 by MIGUEL BRAY RN Amended: Links added.
[2018-11-25 11:26] VITALS: BP 120/74
--- NOTE | 2018-11-25 12:40 | PDOC ---
PROGRESS NOTES Chief Complaint Chief Complaint CC: CP with N/V and diaphoresis History of Present Illness History of Present Illness Pt seen and examined this morning, pt sitting upright in bed 2 Stents placed yesterday, pt hoping to get d/c today States she is going to quit smoking No new complaints Vitals Vitals Vital Signs Date Time Temp Pulse Resp B/P (MAP) Pulse Ox O2 Delivery O2 Flow Rate FiO2 11/25/18 11:36 96 Room Air 11/25/18 11:26 98.2 84 12 120/74 (89) 98.2 11/24/18 14:08 2.0 Physical Exam General: Alert, Oriented X3, Cooperative, No acute distress Heart: Regular rate, Normal S1, Normal S2, No murmurs Lungs: Wheezing, Other (Diffuse wheezing b/l, normal respiratory effort) Abdomen: Soft, No tenderness, No hepatosplenomegaly Extremities: No clubbing, No cyanosis, No edema, Normal pulses, No tenderness/ swelling Skin: No rashes, No breakdown, No significant lesion Review of Systems Review of Systems Denies N/V Denies CP/SOA Denies changes in bowel habits Assessment and Plan Assessmemt and Plan Assessment: CAD and prior inferior STEMI 06/04/18, Cardiac cath 11/24/18 w stents, echo 25% EF CHF, compensated HTN COPD Anxiety OA Plan: D/c pending subspecialists clearance by cardiology Aspirin 325 mg daily, Plavix 75 mg daily, appreciate recommendations F/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 Labs Laboratory Tests Test 11/23/18 18:40 11/23/18 18:42 11/23/18 19:15 11/24/18 01:00 White Blood Count 10.9 x10^3/uL (4.0-11.0) Red Blood Count 5.23 x10^6/uL (3.50-5.40) Hemoglobin 12.3 g/dL (12.0-15.5) Hematocrit 38.4 % (36.0-47.0) Mean Corpuscular Volume 74 fL (79-100) Mean Corpuscular Hemoglobin 23 pg (25-35) Mean Corpuscular Hemoglobin Concent 32 g/dL (31-37) Red Cell Distribution Width 19.0 % (11.5-14.5) Platelet Count 371 x10^3/uL (140-400) Neutrophils (%) (Auto) 62 % (31-73) Lymphocytes (%) (Auto) 31 % (24-48) Monocytes (%) (Auto) 6 % (0-9) Eosinophils (%) (Auto) 1 % (0-3) Basophils (%) (Auto) 1 % (0-3) Neutrophils # (Auto) 6.7 x10^3uL (1.8-7.7) Lymphocytes # (Auto) 3.4 x10^3/uL (1.0-4.8) Monocytes # (Auto) 0.6 x10^3/uL (0.0-1.1) Eosinophils # (Auto) 0.1 x10^3/uL (0.0-0.7) Basophils # (Auto) 0.1 x10^3/uL (0.0-0.2) Prothrombin Time 13.7 SEC (11.7-14.0) Prothromb Time International Ratio 1.1 (0.8-1.1) Bedside Troponin I 0.01 ng/ml (<0.08) Sodium Level 139 mmol/L (136-145) Potassium Level 4.3 mmol/L (3.5-5.1) Chloride Level 103 mmol/L (98-107) Carbon Dioxide Level 24 mmol/L (21-32) Anion Gap 12 (6-14) Blood Urea Nitrogen 11 mg/dL (7-20) Creatinine 0.8 mg/dL (0.6-1.0) Estimated GFR (Cockcroft-Gault) 75.9 BUN/Creatinine Ratio 14 (6-20) Glucose Level 103 mg/dL (70-99) Calcium Level 9.2 mg/dL (8.5-10.1) Total Bilirubin 0.4 mg/dL (0.2-1.0) Aspartate Amino Transf (AST/SGOT) 18 U/L (15-37) Alanine Aminotransferase (ALT/SGPT) 15 U/L (14-59) Alkaline Phosphatase 56 U/L (46-116) Creatine Kinase 82 U/L (26-192) Creatine Kinase MB (Mass) 1.7 ng/mL (0.0-3.6) Creatine Kinase MB Relative Index 2.1 % (0-4) Troponin I Quantitative < 0.017 ng/mL (0.000-0.055) 0.026 ng/mL (0.000-0.055) NT-Yfr-D-Type Natriuretic Peptide 2837 pg/mL (0-124) Total Protein 6.3 g/dL (6.4-8.2) Albumin 3.9 g/dL (3.4-5.0) Albumin/Globulin Ratio 1.6 (1.0-1.7) Test 11/24/18 08:15 Troponin I Quantitative 0.017 ng/mL (0.000-0.055) Triglycerides Level 119 mg/dL (0-150) Cholesterol Level 166 mg/dL (0-200) LDL Cholesterol, Calculated 104 mg/dL (0-100) VLDL Cholesterol, Calculated 24 mg/dL (0-40) Non-HDL Cholesterol Calculated 128 mg/dL (0-129) HDL Cholesterol 38 mg/dL (40-60) Cholesterol/HDL Ratio 4.4 Medications Current Medications Nitroglycerin (Nitrostat) 0.4 mg PRN Q5MIN PRN SL CHEST PAIN Last administered on 11/23/18at 21:16; Start 11/23/18 at 18:45 Morphine Sulfate (Morphine Sulfate) 2 mg 1X ONCE IV Last administered on at 18:57; Start 11/23/18 at 18:45; Stop 11/23/18 at 18:47; Status DC Ondansetron HCl (Zofran) 4 mg 1X ONCE IV Last administered on 11/23/18at 18:57 ; Start 11/23/18 at 19:00; Stop 11/23/18 at 19:01; Status DC Ondansetron HCl (Zofran) 4 mg STK-MED ONCE .ROUTE ; Start 11/23/18 at 18:55; Stop 11/23/18 at 18:56; Status DC Albuterol Sulfate (Ventolin Neb Soln) 2.5 mg 1X ONCE NEB Last administered on 11/23/18at 19:58; Start 11/23/18 at 19:15; Stop 11/23/18 at 19:16; Status DC Morphine Sulfate (Morphine Sulfate) 2 mg 1X ONCE IV Last administered on at 19:23; Start 11/23/18 at 19:15; Stop 11/23/18 at 19:16; Status DC Labetalol HCl (Normodyne Iv Push) 10 mg 1X ONCE IVP ; Start 11/23/18 at 19:45; Stop 11/23/18 at 19:46; Status DC Fentanyl Citrate (Fentanyl 2ml Vial) 50 mcg 1X ONCE IV ; Start 11/23/18 at 19: 45; Stop 11/23/18 at 19:46; Status DC Ondansetron HCl (Zofran) 4 mg PRN Q8HRS PRN IV NAUSEA/VOMITING Last administered on 11/24/18at 04:09; Start 11/23/18 at 19:45; Stop 11/24/18 at 19:44 ; Status DC Labetalol HCl (Normodyne Iv Push) 10 mg PRN Q2HR PRN IVP HYPERTENSION, SEE COMMENTS Last administered on 11/23/18at 20:47; Start 11/23/18 at 20:45 Morphine Sulfate (Morphine Sulfate) 2 mg PRN Q2HR PRN IV PAIN; Start 11/23/18 at 21:00; Status Cancel Morphine Sulfate (Morphine Sulfate) 4 mg PRN Q4HRS PRN IV PAIN Last administered on 11/25/18at 07:58; Start 11/23/18 at 21:00 Carvedilol (Coreg) 6.25 mg BIDWMEALS PO ; Start 11/24/18 at 08:00; Stop at 08:00; Status DC Clopidogrel Bisulfate (Plavix) 75 mg DAILYWBKFT PO Last administered on at 09:21; Start 11/24/18 at 08:00 Isosorbide Mononitrate (Imdur) 60 mg DAILY PO Last administered on 11/25/18at 10 :34; Start 11/24/18 at 09:00 Lisinopril (Prinivil) 5 mg DAILY PO ; Start 11/24/18 at 09:00; Stop 11/24/18 at 09:00; Status DC Non-Formulary Medication (Nitroglycerin ) 0.3 mg q3-5min PRN SL CHEST PAIN; Start 11/23/18 at 22:00; Status UNV Albuterol/ Ipratropium (Duoneb) 3 ml RTQID NEB Last administered on 11/25/18at 11:34; Start 11/24/18 at 08:00 Budesonide (Pulmicort) 0.5 mg RTBID NEB Last administered on 11/24/18at 19:40; Start 11/24/18 at 08:00 Carvedilol (Coreg) 6.25 mg BIDWMEALS PO Last administered on 11/25/18at 09:20; Start 11/23/18 at 22:15 Lisinopril (Prinivil) 5 mg DAILYWSUP PO Last administered on 11/23/18at 22:17; Start 11/23/18 at 22:15 Lidocaine HCl (Xylocaine-Mpf 1% 2ml Vial) 2 ml STK-MED ONCE .ROUTE ; Start 11/24 at 12:30; Stop 11/24/18 at 12:31; Status DC Iohexol (Omnipaque 300 Mg/ml) 100 ml STK-MED ONCE .ROUTE ; Start 11/24/18 at 12: 30; Stop 11/24/18 at 12:31; Status DC Heparin Sodium/ Sodium Chloride 1,000 ml @ As Directed STK-MED ONCE .ROUTE ; Start 11/24/18 at 12:30; Stop 11/24/18 at 12:31; Status DC Fentanyl Citrate (Fentanyl 2ml Vial) 100 mcg STK-MED ONCE .ROUTE ; Start at 12:33; Stop 11/24/18 at 12:34; Status DC Midazolam HCl (Versed) 2 mg STK-MED ONCE .ROUTE ; Start 11/24/18 at 12:34; Stop 11/24/18 at 12:35; Status DC Heparin Sodium (Porcine) (Heparin Sodium) 10,000 unit STK-MED ONCE .ROUTE ; Start 11/24/18 at 12:34; Stop 11/24/18 at 12:35; Status DC Verapamil HCl (Verapamil) 5 mg STK-MED ONCE .ROUTE ; Start 11/24/18 at 12:34; Stop 11/24/18 at 12:35; Status DC Nitroglycerin (Nitroglycerin) 200 mcg STK-MED ONCE .ROUTE ; Start 11/24/18 at 12 :34; Stop 11/24/18 at 12:35; Status DC Nitroglycerin (Nitroglycerin) 200 mcg 1X ONCE IART Last administered on 12:45; Start 11/24/18 at 12:45; Stop 11/24/18 at 12:56; Status DC Verapamil HCl (Verapamil) 2.5 mg 1X ONCE IART Last administered on 11/24/18 12:45; Start 11/24/18 at 12:45; Stop 11/24/18 at 12:56; Status DC Heparin Sodium (Porcine) (Heparin Sodium) 2,500 unit 1X ONCE IART Last administered on 11/24/18 12:45; Start 11/24/18 at 12:45; Stop 11/24/18 at 12:56 ; Status DC Heparin Sodium/ Sodium Chloride (HEPARIN for ARTERIAL LINE FLUSH) 1,000 unit 1X ONCE IART Last administered on 11/24/18 12:45; Start 11/24/18 at 12:45; Stop 11/24/18 at 12:56; Status DC Heparin Sodium/ Sodium Chloride (HEPARIN for ARTERIAL LINE FLUSH) 1,000 unit 1X ONCE IART Last administered on 11/24/18 12:45; Start 11/24/18 at 12:45; Stop 11/24/18 at 12:56; Status DC Midazolam HCl (Versed) 2 mg 1X ONCE IV Last administered on 11/24/18 12:45; Start 11/24/18 at 12:45; Stop 11/24/18 at 12:56; Status DC Fentanyl Citrate (Fentanyl 2ml Vial) 100 mcg 1X ONCE IV Last administered on 12:45; Start 11/24/18 at 12:45; Stop 11/24/18 at 12:56; Status DC Iodixanol (Visipaque 320) 100 ml 1X ONCE IART ; Start 11/24/18 at 12:45; Stop 11/24/18 at 12:46; Status Cancel Lidocaine HCl (Xylocaine-Mpf 1% 2ml Vial) 2 ml 1X ONCE INJ Last administered on 11/24/18 12:45; Start 11/24/18 at 12:45; Stop 11/24/18 at 12:56; Status DC Info (CONTRAST GIVEN -- Rx MONITORING) 1 each PRN DAILY PRN MC SEE COMMENTS; Start 11/24/18 at 13:00; Stop 11/24/18 at 14:19; Status DC Iohexol (Omnipaque 300 Mg/ml) 100 ml STK-MED ONCE .ROUTE ; Start 11/24/18 at 13: 20; Stop 11/24/18 at 13:21; Status DC Bivalirudin (Angiomax) 250 mg STK-MED ONCE IV ; Start 11/24/18 at 13:24; Stop at 13:25; Status DC Nitroglycerin (Nitroglycerin) 200 mcg 1X ONCE IART Last administered on at 13:45; Start 11/24/18 at 13:45; Stop 11/24/18 at 13:46; Status DC Verapamil HCl (Verapamil) 2.5 mg 1X ONCE IART Last administered on 11/24/18at 13:45; Start 11/24/18 at 13:45; Stop 11/24/18 at 13:46; Status DC Bivalirudin (Angiomax) 250 mg 1X ONCE IV Last administered on 11/24/18at 13:45 ; Start 11/24/18 at 13:45; Stop 11/24/18 at 13:46; Status DC Nitroglycerin (Nitroglycerin) 200 mcg STK-MED ONCE .ROUTE ; Start 11/24/18 at 13 :37; Stop 11/24/18 at 13:38; Status DC Iohexol (Omnipaque 300 Mg/ml) 100 ml 1X ONCE IART Last administered on at 13:45; Start 11/24/18 at 13:45; Stop 11/24/18 at 13:46; Status DC Info (CONTRAST GIVEN -- Rx MONITORING) 1 each PRN DAILY PRN MC SEE COMMENTS; Start 11/24/18 at 13:45; Stop 11/26/18 at 13:44 Fentanyl Citrate (Fentanyl 2ml Vial) 100 mcg STK-MED ONCE .ROUTE ; Start at 13:43; Stop 11/24/18 at 13:44; Status DC Midazolam HCl (Versed) 2 mg STK-MED ONCE .ROUTE ; Start 11/24/18 at 13:43; Stop 11/24/18 at 13:44; Status DC Nitroglycerin (Nitroglycerin) 200 mcg STK-MED ONCE .ROUTE ; Start 11/24/18 at 13 :52; Stop 11/24/18 at 13:53; Status DC Aspirin (Prashanth Aspirin) 325 mg STK-MED ONCE .ROUTE ; Start 11/24/18 at 13:56; Stop 11/24/18 at 13:57; Status DC Aspirin (Prashanth Aspirin) 325 mg 1X ONCE PO Last administered on 11/24/18at 14:00 ; Start 11/24/18 at 14:00; Stop 11/24/18 at 14:01; Status DC Active Scripts Active Clopidogrel (Clopidogrel Bisulfate) 75 Mg Tablet 75 Mg PO DAILYWBKFT 30 Days Carvedilol (Carvedilol) 6.25 Mg Tablet 6.25 Mg PO BIDWMEALS 30 Days Lisinopril 5 Mg Tablet 5 Mg PO DAILY 30 Days Reported Isosorbide Mononitrate Er (Isosorbide Mononitrate) 30 Mg Tab.er.24h 60 Mg PO DAILY Nitroglycerin 0.3 Mg Tab.subl 0.3 Mg SL Q3-5MIN PRN Vitals/I & O Vital Sign - Last 24 Hours 11/24/18 11/24/18 11/24/18 11/24/18 12:45 12:45 13:45 14:08 Pulse 75 75 74 Resp 15 14 Pulse Ox 98 O2 Delivery Nasal Cannula O2 Flow Rate 2.0 11/24/18 11/24/18 11/24/18 11/24/18 14:30 14:45 15:00 15:08 Pulse 78 65 68 B/P (MAP) 116/74 (88) 123/75 (91) 130/82 (98) Pulse Ox 99 O2 Delivery Room Air 11/24/18 11/24/18 11/24/18 11/24/18 15:13 15:15 15:30 15:45 Temp 97.5 97.5 Pulse 79 59 55 61 Resp 18 B/P (MAP) 116/74 (88) 115/71 (86) 102/58 (73) 104/57 (73) Pulse Ox 97 O2 Delivery Room Air 11/24/18 11/24/18 11/24/18 11/24/18 16:15 16:45 17:15 19:41 Pulse 58 64 58 B/P (MAP) 97/54 (68) 102/67 (79) 97/62 (74) Pulse Ox 99 O2 Delivery Room Air 11/24/18 11/24/18 11/24/18 4/19/19 19:45 19:45 20:57 21:27 Temp 98.4 98.4 Pulse 63 Resp 18 20 20 B/P (MAP) 101/80 (87) Pulse Ox 95 O2 Delivery Room Air Room Air Room Air 11/24/18 11/25/18 11/25/18 11/25/18 23:42 03:15 07:46 07:58 Temp 98.7 98.1 98.2 98.7 98.1 98.2 Pulse 81 65 76 Resp 18 18 12 B/P (MAP) 130/63 (85) 107/58 (74) 131/80 (97) Pulse Ox 97 95 92 O2 Delivery Room Air Room Air Room Air Room Air 11/25/18 11/25/18 11/25/18 11/25/18 08:05 08:28 09:20 10:34 Pulse 83 69 B/P (MAP) 102/61 138/74 O2 Delivery Room Air Room Air 11/25/18 11/25/18 11:26 11:36 Temp 98.2 98.2 Pulse 84 Resp 12 B/P (MAP) 120/74 (89) Pulse Ox 94 96 O2 Delivery Room Air Room Air Intake and Output 11/24/18 11/24/18 11/25/18 15:00 23:00 07:00 Intake Total 800 ml Output Total 1350 ml 900 ml Balance -1350 ml -100 ml MARINO BATISTA III DO Nov 25, 2018 12:40
--- NOTE | 2018-11-25 12:52 | PDOC ---
CARDIOLOGY PROGRESS NOTE SUBJECTIVE: No acute events. This morning had some MSK pain. OBJECTIVE: Vital SIgns: Vital Signs Date Time Temp Pulse Resp B/P (MAP) Pulse Ox O2 Delivery O2 Flow Rate FiO2 11/25/18 11:36 96 Room Air 11/25/18 11:26 98.2 84 12 120/74 (89) 98.2 11/24/18 14:08 2.0 I & O Intake and Output 11/25/18 06:59 Intake Total 800 ml Output Total 2250 ml Balance -1450 ml Intake Oral 800 ml Output Urine Total 2250 ml # Voids 5 Objective: GEN.: No apparent distress. Alert and oriented. HEENT: Head is normocephalic, atraumatic NECK: Supple. LUNGS: Clear to auscultation. HEART: RRR, S1, S2 present. Peripheral pulses intact ABDOMEN: Soft, nontender. Positive bowel sounds. EXTREMITIES: Without any cyanosis. NEUROLOGIC: Normal speech, normal tone PSYCHIATRIC: Normal affect, normal mood. SKIN: No ulcerations CURRENT MEDICATIONS: asa, plavix, imdur, coreg and lisinopril DIAGNOSTIC TESTING: Cath report reviewed. ASSESSMENT: 1. CAD s/p PCI 2. Mild HTN 3. Dyslipidemia PLAN: 1. Continue home meds including imdur, lisinopril, coreg, asa and plavix. 2. Will add atorvastatin 40mg daily Ok to DC from CV standpoint. Thanks. JANN ESPARZA MD Nov 25, 2018 12:52
[2018-11-25] MEDS ORDERED: ASPIRIN 325 MG TABLET PO SCH (13:30)
[2018-11-25] MEDS ORDERED: ATOR40TA59 PO (15:05)
[2018-11-25] MEDS ORDERED: NITR0.4T22 SL (15:06)
[2018-11-25] MEDS ORDERED: ASPI325T8 PO (15:07)
[2018-11-25 15:19] VITALS: BP 136/69
--- NOTE | 2018-11-25 16:48 | NUR ---
Discharge Note: ELLIOTT BERNARD [address] [place] [address] Discharge instructions and discharge home medications reviewed with Patient and a copy given. All questions have been answered and understanding verbalized. The following instructions and handouts were given: heart disease info, smoking cessation info, cardiac diet info, CAD info, discharge instructions. Discontinued lines and drains: Peripheral IV intact. Patient discharged to Home or Self Care with Spouse via Ambulated at 1648.
[2018-11-25] MEDS ORDERED: ATORVASTATIN CALCIUM 40 MG TABLET. PO SCH (21:00)
--- NOTE | 2018-11-26 11:20 | DS ---
DATE OF DISCHARGE: 11/25/2018 ADMISSION DIAGNOSIS: Acute myocardial infarction. DISCHARGE DIAGNOSIS: Status post resolving acute myocardial infarction with 2 new coronary stents. CONSULTS: Dr. Gutierrez. PROCEDURES: Cardiac cath with stent placement x 2. HISTORY AND HOSPITAL COURSE: The patient is a pleasant middle-aged female who had known previous coronary artery disease and states she had a previous cath, but they could not put a stent in because the vessels were too small. It should be noted that she also smokes heavily. She once again presented to the ER with chest pain, was noted to have a small bump in her troponin, it maxed out at 0.026. She was taken to the helper animal laboratory and received 2 new stents. Yesterday I saw her and examined, heart tones were normal. Her lungs were clear. She was smiling. She had no edema. We discharged with close outpatient followup. DISPOSITION: Home. ACTIVITY: As tolerated. DIET: Cardiac. MEDICATIONS: Please see the MRAD. We did discharge her on aspirin, Plavix, Zocor, metoprolol and lisinopril. TOTAL TIME: 32 minutes. MARINO BATISTA DO DR: MIKE/juliane JOB#: [id number] / [id number]
== END 2018-11-25 16:48 | disposition home or self-care (01) | DRG 247 ==
LOC: ER 18:30 → 2 SOUTH 19:38
PROVIDERS: ADMIT Internal Medicine; ATTEND Internal Medicine
PROC: 027035Z Dilation of Coronary Artery, One Artery with Two Drug-eluting Intraluminal Devices, Percutaneous Approach (ICD-10-PCS; principal; 2018-11-24)
PROC: 02703ZZ Dilation of Coronary Artery, One Artery, Percutaneous Approach (ICD-10-PCS; 2018-11-24)
PROC: 4A023N7 Measurement of Cardiac Sampling and Pressure, Left Heart, Percutaneous Approach (ICD-10-PCS; 2018-11-24)
PROC: 4A033BC Measurement of Arterial Pressure, Coronary, Percutaneous Approach (ICD-10-PCS; 2018-11-24)
DX: I21.9 Acute myocardial infarction, unspecified (principal); J44.1 Chronic obstructive pulmonary disease with (acute) exacerbation; E44.0 Moderate protein-calorie malnutrition; Z68.1 Body mass index [BMI] 19.9 or less, adult; I50.42 Chronic combined systolic (congestive) and diastolic (congestive) heart failure; E78.5 Hyperlipidemia, unspecified; F17.210 Nicotine dependence, cigarettes, uncomplicated; F41.9 Anxiety disorder, unspecified; I11.0 Hypertensive heart disease with heart failure; M19.90 Unspecified osteoarthritis, unspecified site; I25.2 Old myocardial infarction; Z82.49 Family history of ischemic heart disease and other diseases of the circulatory system; Z95.5 Presence of coronary angioplasty implant and graft; Z90.49 Acquired absence of other specified parts of digestive tract
CPT/HCPCS: 36415; 71045; 80053; 80061; 82553; 83880; 84484; 85025; 85610; 92921; 92928; 93005; 93458; 93571; 93572; 94640; 94760; 96374; 96375; 99152; 99153; C1713; C1725; C1769; C1887; C1892; J0583; J1644; J2250; J2270; J2405; J3010; J3490; J7613; J7620; J7626; Q9967; 97116; 97535; 99285-25

== ENCOUNTER 2019-03-13 05:44 | Inpatient (IN) | payer OTHER ==
[2019-03-13] VITALS (13 sets, daily range): BP systolic 97–174; BP diastolic 58–118
[~2019-03-13] VITALS: Ht 170.2 cm; Wt 45.9 kg
[~2019-03-13 05:44] MED LIST changes: +ASPI325T8 PO; +ATOR40TA59 PO; +NITR0.4T22 SL
[2019-03-13] MEDS ORDERED: NITROGLYCERIN SUBLINGUAL 0.4 MG BOTTLE OF 25. SL ONE (07:45)
--- NOTE | 2019-03-13 08:29 | EKG ---
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
[2019-03-13 08:43] LABS: ANION GAP 9 (6-14); BLOOD UREA NITROGEN 8 mg/dL (7-20); CALCIUM 8.5 mg/dL (8.5-10.1); CARBON DIOXIDE 25 mmol/L (21-32); CHLORIDE 103 mmol/L (98-107); CREATININE 0.7 mg/dL (0.6-1.0); GFR 88.6; GLUCOSE 100 mg/dL (70-99); POTASSIUM 4.2 mmol/L (3.5-5.1); SODIUM 137 mmol/L (136-145)
[2019-03-13 08:48] LABS: BACTERIA,URINE FEW /HPF (0-FEW); BILIRUBIN,URINE NEGATIVE (NEG); CLARITY,URINE CLEAR; COLOR,URINE YELLOW; NITRITE,URINE NEGATIVE (NEG); PROTEIN,URINE NEGATIVE (NEG-TRACE); RBC,URINE 0 /HPF (0-2); SQUAMOUS EPITHELIAL CELL,UR MOD /LPF; UROBILINOGEN,URINE 0.2 mg/dL (0.2 mg/dL); WBC,URINE OCC /HPF (0-4)
[2019-03-13 08:54] LABS: BASO # 0.1 x10^3/uL (0.0-0.2); BASO % 1 % (0-3); EOS # 0.2 x10^3/uL (0.0-0.7); EOS % 2 % (0-3); HEMATOCRIT 36.2 % (36.0-47.0); HEMOGLOBIN 11.4 g/dL (12.0-15.5); LYMPH # 3.2 x10^3/uL (1.0-4.8); LYMPH % 33 % (24-48); MEAN CORPUSCULAR HEMOGLOBIN 22 pg (25-35); MEAN CORPUSCULAR HGB CONC 31 g/dL (31-37); MEAN CORPUSCULAR VOLUME 70 fL (79-100); MONO # 0.8 x10^3/uL (0.0-1.1); MONO % 8 % (0-9); NEUT # 5.5 x10^3/uL (1.8-7.7); NEUT % 56 % (31-73); PLATELET COUNT 364 x10^3/uL (140-400); RED BLOOD COUNT 5.16 x10^6/uL (3.50-5.40); RED CELL DISTRIBUTION WIDTH 20.3 % (11.5-14.5); WHITE BLOOD COUNT 9.7 x10^3/uL (4.0-11.0)
--- NOTE | 2019-03-13 08:56 | RAD ---
CHEST AP ONLY History: Chest pain Comparison: November 23, 2018 Findings: No consolidation or pleural effusion. Normal heart size. Impression: 1. No acute cardiopulmonary process. Electronically signed by: Raji Johnson DO (03/13/2019 8:53 AM) [id number]
[2019-03-13 08:57] LABS: ALBUMIN 3.3 g/dL (3.4-5.0); ALK PHOS 80 U/L (46-116); ALT (SGPT) 17 U/L (14-59); AST (SGOT) 26 U/L (15-37); DIRECT BILIRUBIN < 0.1 mg/dL (0.0-0.2); TOTAL BILIRUBIN 0.2 mg/dL (0.2-1.0); TOTAL PROTEIN 6.2 g/dL (6.4-8.2)
[2019-03-13] MEDS ORDERED: fentaNYL PF VIAL 100 MCG/2 ML VIAL ONE ×3 (09:22→11:50)
--- NOTE | 2019-03-13 09:29 | PHYS DOC ---
Past Medical History Past Medical History: CAD, COPD, Hypertension, Lung Disease, TX Additional Past Medical Histor: celiac disease Past Surgical History: Angioplasty, Tonsillectomy, Other Additional Past Surgical Histo: eye surgery, knee surgery, hemmorhoidectomy; heart cath 05/2018; Alcohol Use: None Drug Use: None Adult General Chief Complaint Chief Complaint: CHEST PAIN HPI HPI Patient is a 48 year old female with history of a CAD, TX with stent placement presents with left-sided chest pain worse with exertion and palpation. Symptoms have been ongoing some progression. 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 Patient also reports mild dyspnea. No nausea vomiting or sweats. Symptoms are improved somewhat by rest. No leg pain or swelling. Full strength aspirin taken prior to the ED arrival. Patient is a current smoker. [] Review of Systems Review of Systems Review symptoms as per history of present illness. All other review symptoms are negative. All other systems were reviewed and found to be within normal limits, except as documented in this note. Current Medications Current Medications Current Medications Medications (Trade) Dose Ordered Sig/Kwesi Start Time Stop Time Status Last Admin Dose Admin Nitroglycerin (Nitrostat) 0.4 mg STK-MED ONCE 03/13/19 07:45 03/13/19 07:45 DC Allergies Allergies Allergies Coded Allergies Type Severity Reaction Last Updated Verified No Known Drug Allergies 02/15/14 No Physical Exam Physical Exam Constitutional: Well developed, anxious moderate discomfort secondary to pain.. [] HENT: Normocephalic, atraumatic, bilateral external ears normal, oropharynx moist, no oral exudates, nose normal. [] Eyes: PERRLA, EOMI, conjunctiva normal, no discharge. [] Neck: Normal range of motion, no tenderness. [] Cardiovascular:Heart rate regular rhythm, no murmur, left-sided chest wall pain/tenderness. [] Lungs & Thorax: Bilateral breath sounds clear to auscultation [] Abdomen: Bowel sounds normal, soft, no tenderness. [] Skin: Warm, dry, no erythema, no rash. [] Back: No tenderness. [] Extremities: No tenderness, no leg pain or swelling. [] Neurologic: Alert and oriented X 3, normal motor function, normal sensory function, no focal deficits noted. [] Psychologic: Affect normal, judgement normal, mood normal. [] Current Patient Data Lab Values Laboratory Tests Test 03/13/19 06:40 03/13/19 06:45 White Blood Count 9.7 x10^3/uL (4.0-11.0) Red Blood Count 5.16 x10^6/uL (3.50-5.40) Hemoglobin 11.4 g/dL (12.0-15.5) L Hematocrit 36.2 % (36.0-47.0) Mean Corpuscular Volume 70 fL (79-100) L Mean Corpuscular Hemoglobin 22 pg (25-35) L Mean Corpuscular Hemoglobin Concent 31 g/dL (31-37) Red Cell Distribution Width 20.3 % (11.5-14.5) H Platelet Count 364 x10^3/uL (140-400) Neutrophils (%) (Auto) 56 % (31-73) Lymphocytes (%) (Auto) 33 % (24-48) Monocytes (%) (Auto) 8 % (0-9) Eosinophils (%) (Auto) 2 % (0-3) Basophils (%) (Auto) 1 % (0-3) Neutrophils # (Auto) 5.5 x10^3/uL (1.8-7.7) Lymphocytes # (Auto) 3.2 x10^3/uL (1.0-4.8) Monocytes # (Auto) 0.8 x10^3/uL (0.0-1.1) Eosinophils # (Auto) 0.2 x10^3/uL (0.0-0.7) Basophils # (Auto) 0.1 x10^3/uL (0.0-0.2) Sodium Level 137 mmol/L (136-145) Potassium Level 4.2 mmol/L (3.5-5.1) Chloride Level 103 mmol/L (98-107) Carbon Dioxide Level 25 mmol/L (21-32) Anion Gap 9 (6-14) Blood Urea Nitrogen 8 mg/dL (7-20) Creatinine 0.7 mg/dL (0.6-1.0) Estimated GFR (Cockcroft-Gault) 88.6 Glucose Level 100 mg/dL (70-99) H Calcium Level 8.5 mg/dL (8.5-10.1) Total Bilirubin 0.2 mg/dL (0.2-1.0) Direct Bilirubin < 0.1 mg/dL (0.0-0.2) Aspartate Amino Transferase (AST) 26 U/L (15-37) Alanine Aminotransferase (ALT) 17 U/L (14-59) Alkaline Phosphatase 80 U/L (46-116) Troponin I Quantitative 0.305 ng/mL (0.000-0.055) [id number]-Type Natriuretic Peptide 2345 pg/mL (0-124) H Total Protein 6.2 g/dL (6.4-8.2) L Albumin 3.3 g/dL (3.4-5.0) L Urine Collection Type Void Urine Color Yellow Urine Clarity Clear Urine pH 6.0 Urine Specific [place] 1.010 Urine Protein Negative mg/dL (NEG-TRACE) Urine Glucose (UA) Negative mg/dL (NEG) Urine Ketones (Stick) Negative mg/dL (NEG) Urine Blood Negative (NEG) Urine Nitrite Negative (NEG) Urine Bilirubin Negative (NEG) Urine Urobilinogen Dipstick 0.2 mg/dL (0.2 mg/dL) Urine Leukocyte Esterase Negative (NEG) Urine RBC 0 /HPF (0-2) Urine WBC Occ /HPF (0-4) Urine Squamous Epithelial Cells Mod /LPF Urine Bacteria Few /HPF (0-FEW) Laboratory Tests 03/13/19 06:40 Laboratory Tests 03/13/19 06:40 EKG EKG EKG: Reviewed[] Radiology/Procedures Radiology/Procedures [Chest x-ray: No acute cardiopulmonary disease per radiology report] Course & Med Decision Making Course & Med Decision Making Pertinent Labs and Imaging studies reviewed. (See chart for details) Acute coronary syndrome with continued chest pain, repeat narcotics given the ED. Cardiology service to see in the ED. Will admit to the hospital service.] Dragon Disclaimer Dragon Disclaimer This electronic medical record was generated, in whole or in part, using a voice recognition dictation system. Departure Departure Impression: Primary Impression: Acute coronary syndrome Disposition: ADMITTED INPATIENT Condition: IMPROVED Referrals: SANDRA FULLER MD (PCP) RASHAUN SQUIRES DO Mar 13, 2019 09:29
--- NOTE | 2019-03-13 10:09 | PDOC2 ---
EDITH ORELLANA ROOM SERVICE SUPERVISOR 03/13/19 1009: CARDIAC CONSULT DATE OF CONSULT Date of Consult DATE: 03/13/19 TIME: 10:01 REASON FOR CONSULT Reason for Consult: Chest pain REFERRING PHYSICIAN Referring Physician: Zachary SOURCE Source: Chart review, Patient HISTORY OF PRESENT ILLNESS HISTORY OF PRESENT ILLNESS This is a pleasant 48 yo female admitted for complains of chest pain. Reports that in the last 2 weeks she has been having intermittent chest pressure, tightness and nausea. Occasional with nausea and has been having shortness of breath. This has gotten worse in the 2days having episodes of diaphoresis. She has not been able to sleep much. Upon admission she was given fentanyl and 3 NTG which helped relieved her discomfort bu not completely. She continues to smoke tobacco and trying to quit. No recent falls injury or pulmonary infection. No orthopnea, PND nore peripheral edema PAST MEDICAL HISTORY Past Medical History Cardiovascular: CAD, CHF, HTN, DE (Inferior STEMI 05/2018) Pulmonary: COPD GI: No pertinent hx, Other (Celiac Dx) Heme/Onc: No pertinent hx Psych: Anxiety Musculoskeletal: Osteoarthritis Rheumatologic: No pertinent hx Infectious disease: No pertinent hx ENT: No pertinent hx Renal/: No pertinent hx Endocrine: No pertinent hx Dermatology: No pertinent hx PAST SURGICAL HISTORY Past Surgical History PCI/LAD 11/2018, PTCA to PDA 05/2018) FAMILY HISTORY Family History: Coronary Artery Disease SOCIAL HISTORY Social History Smoke: <1 pack per day (initially quit, but began again recently ) ALCOHOL: none Drugs: None Lives: with Family ALLERGIES ALLERGIES: Coded Allergies: gluten (Verified Allergy, Severe, 03/13/19) HAVE CELIAC DISEASE ROS Review of System 14 point ROS evaluated with pertinent positives noted per HPI PHYSICAL EXAM General: Alert, Oriented X3, Cooperative, No acute distress HEENT: Atraumatic, Mucous membr. moist/pink Lungs: Clear to auscultation, Normal air movement Heart: Regular rate (SR), Normal S1, Normal S2, Other (2/6 systolic murmur to apex) Abdomen: Soft, No tenderness Extremities: No cyanosis, No edema Skin: No breakdown, No significant lesion Neuro: Normal speech, Sensation intact Psych/Mental Status: Mental status NL, Other (anxious) MUSCULOSKELETAL: Osteoarthritic changes both hands LABS Lab: Laboratory Tests Test 03/13/19 06:40 03/13/19 06:45 White Blood Count 9.7 x10^3/uL (4.0-11.0) Red Blood Count 5.16 x10^6/uL (3.50-5.40) Hemoglobin 11.4 g/dL (12.0-15.5) L Hematocrit 36.2 % (36.0-47.0) Mean Corpuscular Volume 70 fL (79-100) L Mean Corpuscular Hemoglobin 22 pg (25-35) L Mean Corpuscular Hemoglobin Concent 31 g/dL (31-37) Red Cell Distribution Width 20.3 % (11.5-14.5) H Platelet Count 364 x10^3/uL (140-400) Neutrophils (%) (Auto) 56 % (31-73) Lymphocytes (%) (Auto) 33 % (24-48) Monocytes (%) (Auto) 8 % (0-9) Eosinophils (%) (Auto) 2 % (0-3) Basophils (%) (Auto) 1 % (0-3) Neutrophils # (Auto) 5.5 x10^3/uL (1.8-7.7) Lymphocytes # (Auto) 3.2 x10^3/uL (1.0-4.8) Monocytes # (Auto) 0.8 x10^3/uL (0.0-1.1) Eosinophils # (Auto) 0.2 x10^3/uL (0.0-0.7) Basophils # (Auto) 0.1 x10^3/uL (0.0-0.2) Sodium Level 137 mmol/L (136-145) Potassium Level 4.2 mmol/L (3.5-5.1) Chloride Level 103 mmol/L (98-107) Carbon Dioxide Level 25 mmol/L (21-32) Anion Gap 9 (6-14) Blood Urea Nitrogen 8 mg/dL (7-20) Creatinine 0.7 mg/dL (0.6-1.0) Estimated GFR (Cockcroft-Gault) 88.6 Glucose Level 100 mg/dL (70-99) H Calcium Level 8.5 mg/dL (8.5-10.1) Total Bilirubin 0.2 mg/dL (0.2-1.0) Direct Bilirubin < 0.1 mg/dL (0.0-0.2) Aspartate Amino Transferase (AST) 26 U/L (15-37) Alanine Aminotransferase (ALT) 17 U/L (14-59) Alkaline Phosphatase 80 U/L (46-116) Troponin I Quantitative 0.305 ng/mL (0.000-0.055) RP-Gjj-B-Type Natriuretic Peptide 2345 pg/mL (0-124) H Total Protein 6.2 g/dL (6.4-8.2) L Albumin 3.3 g/dL (3.4-5.0) L Urine Collection Type Void Urine Color Yellow Urine Clarity Clear Urine pH 6.0 Urine Specific [place] 1.010 Urine Protein Negative mg/dL (NEG-TRACE) Urine Glucose (UA) Negative mg/dL (NEG) Urine Ketones (Stick) Negative mg/dL (NEG) Urine Blood Negative (NEG) Urine Nitrite Negative (NEG) Urine Bilirubin Negative (NEG) Urine Urobilinogen Dipstick 0.2 mg/dL (0.2 mg/dL) Urine Leukocyte Esterase Negative (NEG) Urine RBC 0 /HPF (0-2) Urine WBC Occ /HPF (0-4) Urine Squamous Epithelial Cells Mod /LPF Urine Bacteria Few /HPF (0-FEW) Laboratory Tests 03/13/19 06:40 Laboratory Tests 03/13/19 06:40 ECHOCARDIOGRAM ECHOCARDIOGRAM <Conclusion> Left ventricle systolic function is severely impaired. The Ejection Fraction is 15-20%. There is severe global hypokinesis of the left ventricle with Takutsubo's appearance. There is akinesis in the apex and distal portion of all left ventricular images. DATE: 03/13/19 1112 HEART CATH HEART CATH FINDINGS 1. Hemodynamics: Left ventricular end-diastolic pressure of 15 mmHg. No pullback gradient across the aortic valve. 2. Coronary angiography: a. The left main coronary artery arose from the left sinus of Valsalva, gave rise to the left anterior descending, ramus intermedius and left circumflex arteries and did not show any significant stenosis. b. The left anterior descending artery showed 60-70% stenosis in the midsegment there was physiologically significant based on IFR measurement of 0.63 and 90% stenosis in the distal segment. The diagonal branch showed 60% stenosis in the proximal to midsegment. c. The left circumflex artery did not show any significant stenosis. d. The ramus intermedius artery was a small to medium caliber vessel that showed 90% stenosis in the proximal segment, described in prior cardiac catheterization. e. The right coronary artery was a dominant vessel arising from the right sinus of Valsalva that showed 50% stenosis in the proximal segment that was physiologically insignificant based on IFR measurement to 1.0 and 30% stenosis in the midsegment. The posterior descending branch that was angioplastied in the past showed 100% chronic total occlusion in the midsegment with distal reconstitution from right to right collaterals. INTERVENTION The left main coronary artery was engaged with 6 Malay XB 3.5 guide catheter and the stenoses in the mid and distal segments of the left anterior descending artery were crossed with a 0.014 inch RoosterBi Pro water guidewire. These with predilated with a 2.5 x 12 mm trek balloon. The distal segment stenosis was then treated with a 2.5 x 12 mm Xience Alpine drug eluting stent. The midsegment stenosis was treated with a 3.0 x 15 mm Xience Alpine drug-eluting stent. The stent struts were then crossed into the diagonal branch with the same Pro water guidewire and the stent struts were dilated into the diagonal branch using a 2.5 x 8 mm noncompliant NC trek balloon. Follow-up angiorrhaphy showed resolution of the stenoses to 0% with NENA-3 distal flow. Patient tolerated the procedure well. Hemostasis was achieved using TR band. There were no immediate complications. NENA Flow NENA Flow (Pre-Intervention): NENA-3 NENA Flow (Post-Intervention): NENA-3 Conclusion 1. 60-70% stenosis involving the midsegment of the left anterior descending artery with significant IFR measurement of 0.63, 90% stenosis involving the distal segment of LAD. The right coronary artery showed 50% stenosis in the p roximal segment with insignificant IFR 01.0. The ramus intermedius artery is a small to medium caliber vessel that showed 90% stenosis in the proximal segment, described in prior cardiac catheterization. The left circumflex artery did not show any significant stenosis. 2. Successful PCI/drug eluting stents placement to the left anterior descending artery and successful PTCA to the diagonal branch. Recommendations 1. Aspirin 325 mg daily 2. Plavix 75 mg daily for preferably one year 3. Cardiovascular risk factor modification DATE: 11/24/18 4959 ASSESSMENT/PLAN ASSESSMENT/PLAN 1. NSTEMI 2. Chronic systolic CHF: compensated 3: HTN: labile episodes 4. HLP 5. Hx of Takotsubo CM 6. COPD with continued tobaccoism 7. Hx of raynauds Recommendations 1. ASA, plavix. Start on imdur 2. Trend troponin, Check CKs, TSH lipids. TTE. 3. Continue secondary prevention including entresto 4. LHC today, risks and benefits discussed agreeable to proceed 5. Smoking cessation MARIA VICTORIA JENNINGS MD 03/14/19 0835: CARDIAC CONSULT ASSESSMENT/PLAN ASSESSMENT/PLAN Patient seen and examined 03/13/19. Agree with FOAM GUN OPERATOR's assessment and plan. Agree with cardiac catheterization to further evaluate patient's non-STEMI Chronic systolic heart failure well compensated. Continue current medical regimen Thank you for your consultation EDITH ORELLANA APRN Mar 13, 2019 10:09 MARIA VICTORIA JENNINGS MD Mar 14, 2019 08:35
[2019-03-13 10:12] LABS: ANISOCYTOSIS SLIGHT; HYPOCHROMIA PRESENT; PLT ESTIMATE ADEQUATE (ADEQUATE)
[2019-03-13 10:36] LABS: CHOLESTEROL/HDL RATIO 4.5
--- NOTE | 2019-03-13 10:38 | EKG ---
[facility] [address] [place] [address] Test Date: 2019-03-13 Test Time: 10:24:47 Pat Name: ELLIOTT BERNARD Department: Room: Gender: F [employer] Trader: : 1970 Requested By: EDITH ORELLANA Order Number: [id number] Reading MD: Measurements Intervals [place] Rate: 64 P: 69 ID: [id number] QRS: 34 QRSD: 78 T: 83 QT: 388 QTc: 400 Interpretive Statements SINUS RHYTHM LOW LIMB LEAD VOLTAGE QRS(T) CONTOUR ABNORMALITY CONSIDER ANTEROSEPTAL MYOCARDIAL DAMAGE T ABNORMALITY IN HIGH LATERAL LEADS ABNORMAL ECG RI6.01 Unconfirmed report No previous ECG available for comparison
[2019-03-13 10:56] LABS: CREATINE KINASE 75 U/L (26-192)
[2019-03-13] MEDS ORDERED: LIDOCAINE 1% Multi-Dose 20 ML VIAL. ONE (11:05)
[2019-03-13] MEDS ORDERED: IODIXANOL 320 MG/ML 100 ML VIAL. ONE ×2 (11:05→12:02)
[2019-03-13] MEDS ORDERED: HEPARIN for ARTERIAL LINE 1,500 ML ONE (11:05)
[2019-03-13] MEDS ORDERED: MIDAZOLAM HCL/PF 2 MG/2 ML VIAL. ONE ×2 (11:07→11:50)
[2019-03-13] MEDS ORDERED: HEPARIN for IV BOLUS 10,000 UNIT/10 ML VIAL. ONE (11:07)
[2019-03-13] MEDS ORDERED: VERAPAMIL 5 MG/2 ML VIAL. ONE (11:07)
[2019-03-13] MEDS ORDERED: NITROGLYCERIN 200 MCG/2 ML SYRINGE FOR CATH/VASC LAB. ONE (11:08)
--- NOTE | 2019-03-13 11:12 | CARD ---
MR#: [id number] Date of Study: 03/13/2019 Ordering Physician: EDITH ORELLANA, Referring Physician: MARINO BATISTA Tech: Nathaly Cote RDCS APPROVED REPORT EXAM: Two-dimensional and M-mode echocardiogram with Doppler and color Doppler. Other Information Quality : Good INDICATION Cardiac Disease: CAD Non STEMI S/P Cardiac Stents RISK FACTORS Smoking 2D DIMENSIONS Left Atrium(2D)2.7 (1.6-4.0cm)IVSd0.6 (0.7-1.1cm) Aortic Root(2D)2.7 (2.0-3.7cm)LVDd4.6 (3.9-5.9cm) LVOT Diameter2.0 (1.8-2.4cm)PWd0.6 (0.7-1.1cm) LVDs3.3 (2.5-4.0cm)FS (%) 28.2 % SV53.2 mlLVEF(%)20.0 (>50%) Aortic Valve AoV Peak Marcelo.97.8cm/sAoV VTI16.2cm AO Peak GR.3.8mmHgLVOT VTI 13.48cm AO Mean GR.2mmHgAVA (VTI)2.50cm2 Mitral Valve MV E Slwlsnxr87.7cm/sMV DECEL EDLR460ei MV A Smfmrrtj13.6cm/sE/A Ratio0.8 TDI Lateral E' P. V4.12cm/sMedial E' P. V4.63cm/s E/Lateral E'14.5E/Medial E'12.9 Tricuspid Valve TR P. Zcresols280fh/sRAP YRRNRTCW6ohRf TR Peak Gr.71toTeDFTK95irVa Pulmonary Vein S1 Otcnmwah45.4cm/sS2 Xauygljn93.25cm/s D2 Ecrmvyjw89.2cm/s LEFT VENTRICLE The left ventricle is normal size. There is normal left ventricular wall thickness. Left ventricle sy stolic function is severely impaired. The Ejection Fraction is 15-20%. There is severe global hypokin esis of the left ventricle with Takutsubo's appearance. There is akinesis in the apex and distal port ion of all left ventricular images. Transmitral Doppler flow pattern is Grade I-abnormal relaxation p attern. RIGHT VENTRICLE The right ventricle is normal size. The right ventricular systolic function is normal. ATRIA The left atrium size is normal. The right atrium size is normal. The interatrial septum is intact wit h no evidence for an atrial septal defect or patent foramen ovale as noted on 2-D or Doppler imaging. AORTIC VALVE The aortic valve is normal in structure and function. Doppler and Color Flow revealed no significant aortic regurgitation. There is no significant aortic valvular stenosis. MITRAL VALVE The mitral valve is mildly thickened but opens well. There is no evidence of mitral valve prolapse. T here is no mitral valve stenosis. Doppler and Color-flow revealed mild mitral regurgitation. TRICUSPID VALVE The tricuspid valve is normal in structure and function. Doppler and Color Flow revealed trace tricus pid regurgitation. There is mild pulmonary hypertension. The PA pressure was estimated at 36 mmHg. Th ere is no tricuspid valve stenosis. PULMONIC VALVE The pulmonic valve is not well visualized. Doppler and Color Flow revealed no pulmonic valvular regur gitation. There is no pulmonic valvular stenosis. GREAT VESSELS The aortic root is normal in size. The ascending aorta is not well seen. The IVC is normal in size an d collapses >50% with inspiration. PERICARDIAL EFFUSION There is no evidence of significant pericardial effusion. Critical Notification Critical Value: No <Conclusion> Left ventricle systolic function is severely impaired. The Ejection Fraction is 15-20%. There is severe global hypokinesis of the left ventricle with Takutsubo's appearance. There is akines is in the apex and distal portion of all left ventricular images. Signed by : Kaushal Solis, Electronically Approved : 03/13/2019 11:12:15
[2019-03-13] MEDS ORDERED: IODIXANOL 320 MG/ML 100 ML VIAL. IART ONE (11:15)
[2019-03-13] MEDS ORDERED: VERAPAMIL 5 MG/2 ML VIAL. IART ONE (11:15)
[2019-03-13] MEDS ORDERED: HEPARIN for IV BOLUS 10,000 UNIT/10 ML VIAL. IART ONE (11:15)
[2019-03-13] MEDS ORDERED: fentaNYL PF VIAL 100 MCG/2 ML VIAL IV ONE (11:15)
[2019-03-13] MEDS ORDERED: LIDOCAINE 1% PF 2 ML VIAL. INJ ONE (11:15)
[2019-03-13] MEDS ORDERED: ONDANSETRON PF 4 MG/2 ML VIAL. IV PRN (11:15)
[2019-03-13] MEDS ORDERED: NITROGLYCERIN 200 MCG/2 ML SYRINGE FOR CATH/VASC LAB. IART ONE (11:15)
[2019-03-13] MEDS ORDERED: MIDAZOLAM HCL/PF 2 MG/2 ML VIAL. IV ONE (11:15)
[2019-03-13] MEDS ORDERED: BIVALIRUDIN 250 MG VIAL. IV ONE ×2 (11:57→12:15)
[2019-03-13] MEDS ORDERED: SACU1TAB PO (12:43)
--- NOTE | 2019-03-13 13:11 | HP ---
ADMIT DATE: 03/13/2019 CHIEF COMPLAINT: Chest pain. HISTORY OF PRESENT ILLNESS: The patient is a pleasant middle-aged female who presented with chest pain. She has known coronary artery disease. Her troponin is a little bumped at 0.3. Her BNP is high at 1800. I discussed the case with ER physician. We are going to admit the patient and consult Cardiology. PAST MEDICAL HISTORY: CAD, COPD, hypertension, lung disease, myocardial infarction, cardiac stents, celiac disease. PAST SURGICAL HISTORY: Tonsillectomy, eye surgery, knee surgery, hemorrhoidectomy. ALLERGIES: GLUTEN. FAMILY HISTORY: Coronary artery disease. SOCIAL HISTORY: She smokes. No drink or drugs. She is . MEDICATIONS: Reviewed, please refer to the MRAD. REVIEW OF SYSTEMS: GENERAL: No history of weight change, weakness or fevers. SKIN: No bruising, hair changes or rashes. EYES: No blurred, double or loss of vision. NOSE AND THROAT: No history of nosebleeds, hoarseness or sore throat. HEART: She complains of chest pain. LUNGS: Denies cough, hemoptysis, wheezing or shortness of breath. GASTROINTESTINAL: Denies changes in appetite, nausea, vomiting, diarrhea or constipation. GENITOURINARY: No history of frequency, urgency, hesitancy or nocturia. NEUROLOGIC: Denies history of numbness, tingling, tremor or weakness. PSYCHIATRIC: No history of panic, anxiety or depression. ENDOCRINE: No history of heat or cold intolerance, polyuria or polydipsia. EXTREMITIES: Denies muscle weakness, joint pain, pain on walking or stiffness. PHYSICAL EXAMINATION: VITALS: Within normal limits and are stable. GENERAL: No apparent distress. Alert and oriented. HEENT: Head is normocephalic, atraumatic, pupils were equally round and reactive to light and accommodation. NECK: Supple, no JVD, no thyromegaly was noted. LUNGS: Clear to auscultation in all lung rainey without rhonchi or wheezing. HEART: RRR, S1, S2 present. Peripheral pulses intact, no obvious murmurs were noted. ABDOMEN: Soft, nontender. Positive bowel sounds no organomegaly, normal bowel sounds. EXTREMITIES: Without any cyanosis, clubbing, or edema. Pedal pulses intact, Homans sign is negative. NEUROLOGIC: Normal speech, normal tone. A & O x3, moves all extremities, no obvious focal deficits. PSYCHIATRIC: She is crying. SKIN: No ulcerations or rashes, good skin turgor, no jaundice. VASCULAR: Good capillary refill, neurovascular bundle appears to be intact. LABORATORY DATA: Troponin is 0.3. ASSESSMENT AND PLAN: Acute coronary syndrome with acute on chronic systolic and diastolic heart failure. The patient has been admitted. Check serial enzymes, serial EKGs. Consult Cardiology, cardiac monitoring, home meds, DVT prophylaxis. Full code. MARINO BATISTA DO DR: MIKE/juliane JOB#: [id number] / [id number]
[2019-03-13] MEDS ORDERED: IV 1/2 NORMAL SALINE 1,000 ML IV SCH (13:26)
--- NOTE | 2019-03-13 13:26 | PDOC ---
MODERATE SEDATION ASSESSMENT RISKS/ALTERNATIVES Risks/Alternatives Risks and alternatives of this type of sedation and procedure discussed with: RISK/ALTERNATIVES: Patient H & P ON CHART H & P H & P on chart and reviewed for co-morbid conditions and appropriate labs. H&P ON CHART: Yes STATUS PREG STATUS ASSESSED: N/A MEDS/ALLERGIES REVIEWED Meds/Allergies Reviewed Medications and Allergies including time and route of recently administered narcotics and sedatives. MEDS/ALLERGIES REVIEWED: Yes ASA RATING ASA RATING: III AIRWAY ASSESSMENT Airway Assessment Airway patency, oral function limitations, presence of caps, crowns, dentures, partials, and ability to extend neck assessed. AIRWAY ASSESSMENT: Yes MALLAMPATI SCORE MALLAMPATI SCORE: II PRE-SEDATION ASSESSMENT PRE-SEDATION ASSESSMENT: Yes MARIA VICTORIA JENNINGS MD Mar 13, 2019 13:26
[2019-03-13] MEDS ORDERED: ACETAMINOPHEN 325 MG TABLET. PO PRN (13:30)
[2019-03-13] MEDS ORDERED: 0.9 % SODIUM CHLORIDE 10 ML DISP.SYRIN. IV PRN (13:30)
[2019-03-13] MEDS ORDERED: NITROGLYCERIN SUBLINGUAL 0.4 MG BOTTLE OF 25. SL PRN ×2 (13:30→14:30)
[2019-03-13] MEDS ORDERED: ASPI325T8 PO (13:49)
--- NOTE | 2019-03-13 16:31 | CARD ---
MR#: [id number] Date of Study: 03/13/2019 Ordering Physician: EDITH ORELLANA, Referring Physician: MARINO BATISTA Tech: RT Sybil (R) APPROVED REPORT Technologist: Viri Cote RT (R) Nurse: Sarah Hernandez RN Procedure(s) performed: 1. Left heart catheterization, selective coronary angiography and left ventr icular atrophy via right transradial approach 2. Successful PCI/drug eluting stents placement to the left anterior descending artery and also the ramus intermedius artery. Fluoro time: 17.2 min Dose: 31 Gycm2 Contrast: 251cc Moderate sedation: 80 MIN INDICATION The indication(s) include : non-STEMI . CS Clinical Frailty Scale [facility] Clinical Frailty Scale: Managing Well Heart Failure Heart Failure: Yes If Yes, Newly Diagnosed: No If Yes, HF Type: Systolic If Yes, NYHA Class: Class III PROCEDURE NARRATIVE After explaining the risks, benefits and alternative options, informed consent was obtained from saad ent. Patient was brought to the cardiac New Business Clerk and right wrist was prepped and draped in the usual fashion after confirming a positive modified Jimmy's test. Arterial access was obtained in the righ t radial artery and a 6 Stateless sheath was inserted. 6 Stateless Sean catheter was used to perform nova ective angiography of the left and right coronary arteries. 6 Stateless pigtail catheter was used to pe rform left ventriculography. Patient tolerated the procedure well. Hemostasis was achieved using TR band. There were no immediate complications. The following findings were noted. FINDINGS 1. Hemodynamics: Left ventricular end-diastolic pressure of 15 mmHg. No pullback gradient across th e aortic valve. 2. Left ventriculography: Severe left ventricle systolic dysfunction in a pattern suggestive of Andrea otsubo's cardiomyopathy with EF estimated at 20%. No significant mitral regurgitation seen. 3. Coronary angiography: a. The left main coronary artery arose from the left sinus of Valsalva, gave rise to the left anteri or descending, ramus intermedius and left circumflex arteries and did not show any significant stenos is. b. The left anterior descending artery showed 90% stenosis involving the proximal segment, patent st ent in the midsegment, patent stent in the mid to distal segment. The diagonal branch showed 80% sten osis involving the ostial segment. c. The left circumflex artery did not show any significant stenosis. d. The ramus intermedius artery showed 80% stenosis involving the proximal segment. e. The right coronary artery was a large and dominant vessel arising from the right sinus of Valsalv a that showed 50% stenosis involving the proximal to midsegment (unchanged compared to prior cardiac catheterization) and 30% stenosis in the midsegment. The posterior descending branch showed chronic t otal occlusion in the midsegment with distal reconstitution from right to right collaterals. This was described in prior cardiac catheterization. INTERVENTION The left main coronary artery was engaged with a 6 Stateless XB 3.5 guide catheter and the stenosis in t he proximal segment of the left anterior descending artery was crossed with a 0.[address] guidewire. This was predilated with a 3.0 x 15 mm trek balloon following which this was successfu lly treated with a 3.0 x 15 mm Xience Alpine drug-eluting stent. Subsequently, the lesion in the nelson s intermedius branch was crossed with the same guidewire, dilated with a 2.5 x 15 mm trek balloon and treated successfully with a 2.5 x 15 mm Xience Alpine drug-eluting stent. Follow-up angiography show ed resolution of both the stenoses to 0% with NENA-3 distal flow. The left circumflex artery showed s pasm proximally that resolved after intracoronary nitroglycerin administration. Patient tolerated the procedure well. Hemostasis was achieved using TR band. There were no immediate complications. PCI Technique Lesion Percutaneous coronary intervention was performed on the proximal left anterior descending artery segm ent. NENA Flow NENA Flow (Pre-Intervention): NENA-2 NENA Flow (Post-Intervention): NENA-3 PCI Technique Lesion 2 Percutaneous Coronary Intervention was performed on the ramus intermedius segment. NENA Flow NENA Flow (Pre-Intervention): NENA-3 NENA Flow (Post-Intervention): NENA-3 Conclusion 1. 90% stenosis involving the proximal segment of the left anterior descending artery and 80% stenos is involving the ramus intermedius artery. The previous replaced stents in the left anterior descendi ng artery with patent. Patient has known chronic total occlusion of posterior descending branch of ri ght coronary artery and stable 50% stenosis involving the proximal to midsegment of RCA. 2. Successful PCI/drug eluting stents placement to the left anterior descending artery and the ramus intermedius artery. 3. Severe left ventricle systolic dysfunction in a pattern suggestive of Takotsubo's cardiomyopathy with EF estimated at 20% Recommendations 1. Aspirin 325 mg daily 2. Plavix 75 mg daily for preferably one year 3. Cardiovascular risk factor modification Signed by : Robert Gutierrez, Electronically Approved : 03/13/2019 16:31:16
[2019-03-13] MEDS: CARVEDILOL 6.25 MG TABLET. PO SCH (16:43)
[2019-03-13] MEDS: IPRATRPIUM/ALBUTEROL 0.5/2.5MG 3 ML NEBU. NEB SCH (20:27)
[2019-03-13] MEDS ORDERED: ATORVASTATIN CALCIUM 40 MG TABLET. PO SCH (21:00)
[2019-03-13] MEDS ORDERED: ZOLPIDEM 5 MG TABLET. PO PRN (21:00)
[2019-03-14 03:24] VITALS: BP 125/77
[2019-03-14 07:00] VITALS: BP 123/78
[2019-03-14] MEDS ORDERED: CLOPIDOGREL BISULFATE 75 MG TABLET PO SCH (08:00)
[2019-03-14] MEDS: IPRATRPIUM/ALBUTEROL 0.5/2.5MG 3 ML NEBU. NEB SCH ×3 (08:06→16:24)
[2019-03-14] MEDS: CARVEDILOL 6.25 MG TABLET. PO SCH ×2 (08:55→17:32)
[2019-03-14] MEDS ORDERED: ISOSORBIDE MONONITRATE ER 30 MG TAB.ER.24H PO SCH (09:00)
[2019-03-14] MEDS ORDERED: ASPIRIN 325 MG TABLET PO SCH (09:00)
[2019-03-14] MEDS ORDERED: SACUBITRIL/VALSARTAN 24/26MG TABLET. PO SCH ×2 (09:00→21:00)
[2019-03-14 11:00] VITALS: BP 100/65
--- NOTE | 2019-03-14 11:38 | PDOC ---
EDITH ORELLANA AUDIT TECH 03/14/19 1138: CARDIO Progress Notes Date and Time Date of Service 03/14/2019 Time of Evaluation 1120 Subjective Subjective: No Chest Pain, No shortness of breath, No Palpitations Vitals Vitals Vital Signs Date Time Temp Pulse Resp B/P (MAP) Pulse Ox O2 Delivery O2 Flow Rate FiO2 03/14/19 08:56 65 03/14/19 08:07 98 Room Air 03/14/19 07:00 97.8 18 123/78 (93) 97.8 03/13/19 13:30 2.0 Weight Weight [ ] Input and Output Intake and Output Intake and Output 03/14/19 06:59 Intake Total 1350 ml Balance 1350 ml Intake Oral 550 ml IV Total 800 ml # Voids 4 Physical Exam HEENT: Neck Supple W Full Motion Chest: Symmetric LUNGS: Clear to Auscultation Heart: S1S2, RRR (SR) Abdomen: Soft N/T Extremities: No Edema, No Calf Tenderness Neurology: alert, oriented, follow commands Other Exams right wrist arteriotomy site intact, no erythema, swelling, neurovascular status to right hand intact Assessment Assessment 1. NSTEMI: S/P PCI/ISRAEL to LAD and RI 2. Chronic systolic CHF: compensated. EF at 15-20% NYHA 1 3: HTN: controlled 4. HLP 5. Severe ICM/NICM with Takotsubo CM 6. COPD with continued tobaccoism 7. Hx of raynauds Recommendations 1. ASA, plavix. Continue secondary prevention measures, including entresto and imdur 2. Smoking cessation. Cardiac rehab 3. Reeval in 3 months for potential AICD placement. Lifevest recommended if pt agrees. MARIA VICTORIA JENNINGS MD 03/14/197: CARDIO Progress Notes Assessment Assessment Patient seen and examined. Agree with CREW LEADER GLUING's assessment and plan. s/p PCI/ISRAEL to LAD and RI, chest pain free Tele did not show any arrhythmias Continue DAPT Agree with Lifevest and repeat echo in 3 mos to determine need for ICD implantation EDITH ORELLANA AUDIT TECH Mar 14, 2019 11:38 MARIA VICTORIA JENNINGS MD Mar 14, 2019 21:17
--- NOTE | 2019-03-14 12:09 | PDOC ---
[employer] PROGRESS NOTE Chief Complaint Chief Complaint Acute [place] with 2 new stents placed to LAD (post-op day 1) CHF (15-20% EF) CAD COPD Hypertension Lung disease Myocardial infarction Cardiac stents Celiac disease History of Present Illness History of Present Illness 03/14/19 Pt seen and examined Pt appears in NAD DW pt DW RN Reviewed chart Vitals/I&O Vitals/I&O: Vital Signs Date Time Temp Pulse Resp B/P (MAP) Pulse Ox O2 Delivery O2 Flow Rate FiO2 03/14/19 11:47 98 Room Air 03/14/19 08:56 65 03/14/19 07:00 97.8 18 123/78 (93) 97.8 03/13/19 13:30 2.0 I & O 03/13/19 03/13/19 03/14/19 14:59 22:59 06:59 Intake Total 1350 ml Balance 1350 ml Physical Exam General: Alert, Oriented X3, Cooperative, No acute distress Heart: Regular rate (SR), Normal S1, Normal S2, Other (2/6 systolic murmur to apex) Lungs: Wheezing, Other Abdomen: Soft, No tenderness Extremities: No cyanosis, No edema Skin: No breakdown, No significant lesion Review of Systems Review of Systems: No c/o headache No c/o CP Assessment and Plan Assessmemt and Plan Problems Medical Problems: (1) Acute coronary syndrome Status: Acute Assessment Acute [place] with 2 new stents placed to LAD (post-op day 1) CHF (15-20% EF) CAD COPD Hypertension Lung disease Myocardial infarction Cardiac stents Celiac disease Plan Cardiac Monitoring Plavix Entresto DVT Prophylaxis Home meds Full Code Discharge when okay w/cardiology Comment Review of Relevant I have reviewed the following items mahsa (where applicable) has been applied. Medications: Current Medications Medications (Trade) Dose Ordered Sig/Kwesi Route PRN Reason Start Time Stop Time Status Last Admin Dose Admin Bivalirudin (Angiomax) 250 mg 1X ONCE IV 03/13/19 12:15 03/13/19 12:16 DC 03/13/19 12:12 Sodium Chloride 1,000 ml @ 100 mls/hr Q10H IV 03/13/19 13:26 03/13/19 23:25 DC 03/13/19 13:55 Aspirin (Prashanth Aspirin) 325 mg DAILY PO 03/14/19 09:00 03/14/19 08:56 Atorvastatin Calcium (Lipitor) 40 mg HS PO 03/13/19 21:00 03/13/19 20:52 Carvedilol (Coreg) 6.25 mg BIDWMEALS PO 03/13/19 17:00 03/14/19 08:56 Clopidogrel Bisulfate (Plavix) 75 mg DAILYWBKFT PO 03/14/19 08:00 03/14/19 08:57 Isosorbide Mononitrate (Imdur) 60 mg DAILY PO 03/14/19 09:00 03/14/19 08:56 Sacubitril/ Valsartan (Entresto 24 Mg-26 Mg) 1 tab DAILY PO 03/14/19 09:00 03/14/19 08:56 Albuterol/ Ipratropium (Duoneb) 3 ml RTQID NEB 03/13/19 20:15 03/14/19 11:47 Zolpidem Tartrate (Ambien) 5 mg PRN QHS PRN PO INSOMNIA 03/13/19 21:00 03/13/19 21:15 MARINO BATISTA III DO Mar 14, 2019 12:09
[2019-03-14 15:00] VITALS: BP 102/73
--- NOTE | 2019-03-14 16:15 | NUR ---
SS following for discharge planning. SS met with pt per request. Pt asking SS about disability with ejection fraction of 15-20%. SS discussed assisted disability and pt reported that she would contact [employer] to get application started. Pt requesting home healthcare at discharge. SS phoned and faxed discharge orders and referral to [facility], ; fax [phone]. Pt's RN notified.
--- NOTE | 2019-03-14 17:48 | NUR ---
Discharge teaching verbal and written. Reviewed medication, follow-up, ECHO, ND, Cardiac cath discharge instructions, Life vest, home health, ect. patient verbalized understanding. Life vest in place. Prescription for nitro and atorvastatin called into [facility] [phone] spoke with Rose. Patient ambulated off of unit accompanied by and SPECIAL EDUCATOR
== END 2019-03-14 17:40 | disposition home health service (06) | DRG 246 ==
LOC: ER 05:44 → 2 NORTH 09:00
PROVIDERS: ADMIT Internal Medicine; ATTEND Internal Medicine
PROC: 4A023N7 Measurement of Cardiac Sampling and Pressure, Left Heart, Percutaneous Approach (ICD-10-PCS; principal; 2019-03-13)
PROC: 027135Z Dilation of Coronary Artery, Two Arteries with Two Drug-eluting Intraluminal Devices, Percutaneous Approach (ICD-10-PCS; 2019-03-13)
PROC: B2111ZZ Fluoroscopy of Multiple Coronary Arteries using Low Osmolar Contrast (ICD-10-PCS; 2019-03-13)
PROC: B2151ZZ Fluoroscopy of Left Heart using Low Osmolar Contrast (ICD-10-PCS; 2019-03-13)
DX: I21.4 Non-ST elevation (NSTEMI) myocardial infarction (principal); I50.43 Acute on chronic combined systolic (congestive) and diastolic (congestive) heart failure; I42.9 Cardiomyopathy, unspecified; I25.10 Atherosclerotic heart disease of native coronary artery without angina pectoris; F17.200 Nicotine dependence, unspecified, uncomplicated; I11.0 Hypertensive heart disease with heart failure; E78.5 Hyperlipidemia, unspecified; J44.9 Chronic obstructive pulmonary disease, unspecified; K90.0 Celiac disease; I73.00 Raynaud's syndrome without gangrene; F41.9 Anxiety disorder, unspecified; M19.90 Unspecified osteoarthritis, unspecified site; Z82.49 Family history of ischemic heart disease and other diseases of the circulatory system
CPT/HCPCS: 36415; 71045; 80048; 80061; 80076; 81001; 82553; 83880; 84443; 84484; 85025; 92928; 93005; 93306; 93458; 94640; 96361; 96374; 96375; 99152; 99153; C1725; C1769; C1874; C1887; C1892; J0583; J1644; J2250; J3010; J3490; J7620; Q9967; 99285-25; C1713; G0378